=== PATIENT | male | born 1970 | race Caucasian/White ===

== ENCOUNTER 2021-04-22 16:48 | Inpatient (IN) | payer MEDICAID, SELFPAY ==
--- NOTE | ~2021-04-22 | XR_ITS ---
EXAMINATION: XR CHEST CLINICAL INFORMATION: History of fall. EtOH use. COMPARISON: None TECHNIQUE: 2 views of the chest were obtained. FINDINGS: Mild hyperinflated clear lung field is seen bilaterally. Cardiac mediastinal silhouette is within normal limit. No evidence of any pleural effusion or pneumothorax. The visualized upper abdomen is unremarkable. XR/XR chest 2V IMPRESSION: Mild hyperinflated lung field, may represent changes secondary to deep inspiration versus underlying COPD/emphysema. No superimposed acute cardiopulmonary disease.
--- NOTE | ~2021-04-22 | CT_ITS ---
EXAMINATION: CT HEAD WITHOUT CONTRAST CLINICAL INFORMATION: Status post fall. EtOH use. COMPARISON: None TECHNIQUE: Contiguous axial imaging was performed from the skull base to vertex without intravenous administration of contrast. This CT examination was performed using dose optimization techniques as appropriate, variously including the following: *Automated exposure control *Adjustment of mA and/or kV according to patient size (this includes techniques or standardized protocols for targeted exams where dose is matched to indication/reason for exam; i.e. extremities or head) *Use of iterative reconstruction technique DLP: 641.0 mGy-cm FINDINGS: There is no evidence of acute intracranial hemorrhage or territorial infarction. No abnormal mass effect or midline shift is seen. Ashley to white matter differentiation is well preserved. No extra-axial fluid collections are identified. The ventricles are normal in size. There is no abnormal attenuation within the brain parenchyma. The osseous structures and soft tissues are normal. The mastoid air cells and visualized portions of the paranasal sinuses are well aerated. CT/CT head/brain wo con IMPRESSION: No acute intracranial pathology.
[2021-04-22 17:52] VITALS: BP 134/83; PULSE 124; RESP 16; TEMP 36.9; O2SAT 100; BMI 22.0
[2021-04-22 18:49] LABS: COVID-19 Test Negative (Negative)
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
--- NOTE | 2021-04-22 19:05 | ECG_ITS ---
Test Reason : PSYCH Blood Pressure : / mmHG Vent. Rate : 094 BPM Atrial Rate : 094 BPM P-R Int : 106 ms QRS Dur : 080 ms QT Int : 400 ms P-R-T Axes : 071 052 090 degrees QTc Int : 500 ms Sinus rhythm with short MN with occasional Premature ventricular complexes Moderate voltage criteria for LVH, may be normal variant T-wave inversion in Lateral leads Prolonged QT Abnormal ECG No previous ECGs available Referred By: Mona Tomas Electronically Signed By:MANDO GASTON
[2021-04-22 19:36] LABS: MANUAL DIFF FLAG NO
[2021-04-22 19:39] LABS: Basophils Percent Auto 0.2 % (0-2); Eosinophils Percent Auto 0.2 % (0-4)
[2021-04-22 19:43] LABS: Hematocrit 35.2 % (42-52); Hemoglobin 12.9 g/dl (14.0-18.0); Imm Gran Abs Auto 0.05 X10*3/uL (0.00-0.03); Imm Gran Pct Auto 0.4 % (0.0-0.4); Lymphocytes Absolute Auto 0.9 X10*3/uL (1.2-4.9); Lymphocytes Percent Auto 7.7 % (20-40); Mean Corpuscular HGB Conc 36.6 g/dl (31.0-36.0); Mean Corpuscular Hemoglobin 40.7 pg (27.0-33.0); Mean Platelet Volume 10.1 fL (9.4-12.4); Monocytes Absolute Auto 1.1 X10*3/uL (0.1-1.2); Monocytes Percent Auto 9.1 % (2-11); Neutrophils Absolute Auto 9.5 X10*3/uL (2.0-8.3); Neutrophils Percent Auto 82.4 % (45-73); Platelet Count 140 X10*3/uL (160-400); Red Blood Count 3.17 X10*6/uL (4.60-5.80); White Blood Count 11.5 X10*3/uL (4.8-10.8)
[2021-04-22 19:52] LABS: Appearance Urine CLEAR; Color Urine DK YELLOW; Glucose Urine UA NEG (NEG); Leukocyte Esterase Urine NEG (NEG); Nitrite Urine NEG (NEG); PH 6.5 (5.0-8.0); Specific Gravity - Urine 1.025 (1.005-1.025); UACC Culture Trigger NO; Urine Blood 1+ (NEG); Urine Ketones 15 MG/DL (NEG); Urine Protein 2+ MG/DL (NEG-TRACE)
[2021-04-22 19:53] LABS: Ethanol < 10 mg/dL
[2021-04-22 19:59] LABS: Alanine Aminotransferase 21 U/L (0-40); Alkaline Phosphatase 78 U/L (39-117); Aspartate Amino Transferase 57 U/L (5-37); Blood Urea Nitrogen 23 mg/dL (9-16); Calcium 9.5 mg/dL (8.4-10.2); Creatinine Clr Calc Pharmacy 64.9; Estimated Glomerular Filt Rate 60; Glucose Random 81 mg/dL (60-115); Magnesium 1.5 mg/dL (1.6-2.6); Total Protein 8.4 g/dL (6.5-8.0)
[2021-04-22 20:01] LABS: RBC Urine 0-2 /HPF (0); WBC Urine 0 /HPF (0-4)
[2021-04-22 20:02] LABS: Bacteria Urine TRACE /LPF; Squamous Epithelial Cell Urine TRACE /LPF
[2021-04-22 20:09] LABS: Amphetamine Screen Urine Not Detected (Not Detect); Barbiturates, Urine Not Detected (Not Detect); Benzodiazepines Screen Urine Not Detected (Not Detect); Cannabinoid Screen Urine POSITIVE (Not Detect); Cocaine Screen Urine POSITIVE (Not Detect); Fentanyl, urine Not Detected (Not Detect); Opiate Screen Urine Not Detected (Not Detect); Phencyclidine Screen Urine Not Detected (Not Detect)
[2021-04-22] MEDS: Lactated Ringers 1,000 ML 999 ML IV (20:10)
[2021-04-22 20:11] LABS: Anion Gap 25 (12-20); Carbon Dioxide 23 mmol/L (22-29); Chloride 86 mmol/L (96-108); Potassium 4.6 mmol/L (3.3-5.1); Sodium 129 mmol/L (135-145)
[2021-04-22] MEDS: PHENobarbitaL sodium 130 MG/ML VIAL 316 MG IM (20:13)
--- NOTE | 2021-04-22 20:17 | PHA.MEDREC ---
Pharmacy Consult ? Medication Reconciliation Pharmacy has completed the medication reconciliation. Spoke to patient's sister Madisyn. Thanks Rahat Rodriguez Pharm D
[2021-04-22 20:19] VITALS: BP 127/85; PULSE 89; RESP 16; TEMP 36.8; O2SAT 98
[2021-04-22 21:02] LABS: Sodium Urine Random < 20.0 mmol/L
[2021-04-22 21:03] LABS: Osmolality, Serum 282 mosm/kg (281-305)
[2021-04-22 21:12] LABS: Osmolality Urine 654 mosm/kg (373-1093)
--- NOTE | 2021-04-22 21:31 | PC.NURSE ---
Hospitalist at bedside for primary eval.
--- NOTE | 2021-04-22 21:54 | PC.NURSE ---
PT's sister called for update. Sister (Madisyn) informed this script writer that PT has been exhibiting very peculiar behavior lately. Sister is concerned that PT is not withdrawing from alcohol because she did not witness any cessation of alcoholism recently. She also explained that the PT has exhibited altered behavior before in the past so she is concerned about underlying psychiatric issues. PT has a deep and ongoing fear of health care providers, often refusing treatment and medication options.
[2021-04-22 22:27] VITALS: BP 128/75; PULSE 86; RESP 16; O2SAT 98
[2021-04-22] MEDS: PHENobarbitaL sodium 130 MG/ML VIAL 236 MG IM (22:29)
[2021-04-22] MEDS: Enoxaparin Sodium 40 MG/0.4 ML SYRINGE SUBCUT (22:48)
[2021-04-22] MEDS: 0.9 % Sodium Chloride 1,000 ML 100 ML IVCONT (22:50)
[2021-04-22 23:27] LABS: Ammonia 48 umol/L (13-55)
[2021-04-23 01:36] VITALS: BP 110/64; PULSE 95; RESP 16; TEMP 37.3; O2SAT 99
[2021-04-23] MEDS: PHENobarbitaL sodium 130 MG/ML VIAL 236 MG IM (01:43)
--- NOTE | 2021-04-23 01:51 | PC.NURSE ---
PT was incontinent of stool. PT cleaned and changed in room. CIWA score remains unchanged. VSS. PT resting in bed, awaiting room assignment.
--- NOTE | 2021-04-23 06:29 | P.HPHOSP_ITS ---
History of Present Illness Date of Service: 04/22/21 Chief Complaint: Hallucinations This is a 50-year-old male with a past medical history of alcohol abuse, presents to the hospital with complaints of hallucinations reported by his sister who lives with him. When I saw the patient, his initial statement to me was to do with the visual hallucination he was seeing, but I was able to redirect him, he was able to give me accurate information with appropriate answers to my questions. He is not sure why he was sent to the hospital but he knows that his sister sent him. He denies any chest pain, no shortness of breath, no headache or change in vision, no abdominal pain, no nausea or vomiting, no diarrhea constipation, no urinary symptoms and no lower extremity edema. Patient reports that he drinks about 5-6 rum and Coke daily. He lives in his sister's basement and when asked him about his visual hallucinations he reports that he does see some patterns and colors but does not have any auditory hallucinations. He reports that his last drink was this a.m. a dental had any history of withdrawal seizures. He denies any chest pain, no shortness of breath no cough, the numbness tingling or weakness. All other review of system negative except as mentioned no significant abnormal vitals with a heart rate of 124 cocaine and marijuana. Labs are significant for WBC count of 11.5, hemoglobin of 12.9, which she sodium of 129, BUN of 23, creatinine-1.28, he magnesium of 1.5, total bili of 2.10, UA negative. Patient has been tested for syphilis-reusults pending, COVID-19 negative. Patient was started on a phenobarb protocol and will be admitted for further management and evaluation Review of Systems Review of Systems: Yes all other systems are reviewed and are negative [facility] Medical History Alcohol abuse Pertinent family history: Denies any family history or pertinent family history Surgical History (Updated 04/23/21 @ 06:42 by Jeaneth Hooks MD) No significant past surgical history Social History Advance Directives: No Advance Directives Information Provided: Yes Meds Allergies Allergy/AdvReac Type Severity Reaction Status Date / Time No Known Allergies Allergy Unverified 04/22/21 18:34 Active Medications: Current Medications Acetaminophen (Acetaminophen 325 Mg Tablet) 650 mg PO Q6H PRN PRN Reason: Pain, Mild (Pain Scale 1-3) Docusate Sodium (Docusate Sodium 100 Mg Capsule) 100 mg PO DAILY PRN PRN Reason: Constipation Enoxaparin Sodium (Enoxaparin Sodium 40 Mg/0.4 Ml Syringe) 40 mg SUBCUT Q24H [facility] Last Admin: 04/22/21 22:48 Dose: 40 mg Documented by: Folic Acid (Folic Acid 1 Mg Tablet) 1 mg PO DAILY [facility] Sodium Chloride (Ns) 1,000 mls @ 100 mls/hr IVCONT .Q10H [facility] Last Admin: 04/22/21 22:50 Dose: 100 mls/hr Documented by: Medication (No Benzodiazepines) 1 each MISCELLANE DAILY [facility] Ondansetron HCl (Ondansetron Hcl 4 Mg/2 Ml Vial) 4 mg IVPUSH Q8H PRN PRN Reason: Nausea and Vomiting Pharmacy Consult (Consult Rx Perform Med Rec) 1 each MISCELLANE ONCE PRN PRN Reason: Consult order Phenobarbital (Phenobarbital 15 Mg Tablet) 45 mg PO BID [facility]; Protocol Stop: 04/24/21 21:01 Phenobarbital (Phenobarbital 30 Mg Tablet) 30 mg PO BID [facility]; Protocol Stop: 04/26/21 21:01 Phenobarbital (Phenobarbital 30 Mg Tablet) 30 mg PO DAILY [facility]; Protocol Stop: 04/28/21 09:01 Sodium Chloride (0.9 % Sodium Chloride Flush 3 Ml Syringe) 3 ml IVFLUSH QSHIFT [facility] Last Admin: 04/23/21 00:31 Dose: Not Given Documented by: Thiamine HCl (Thiamine Hcl 100 Mg Tablet) 100 mg PO DAILY [facility] Home Medications Medication Instructions Recorded Confirmed Last Taken Type No Known Home Meds 04/22/21 04/22/21 Unknown History Physical Exam Vital Signs and Narrative: Vital Signs: Last Vital Signs Temp 99.1 F 04/23/21 01:36 Pulse 95 04/23/21 01:36 Resp 16 04/23/21 01:36 BP 110/64 04/23/21 01:36 Pulse Ox 99 04/23/21 01:36 Body Mass Index 22.0 Const: General: cooperative and no acute distress Orientation/consciousness: patient oriented x3 Eyes: General: appearance normal, both eyes and all related structures Pupils: Equal, round and reactive pupils present Resp: Effort & Inspection: normal respiratory effort Auscultation: clear to auscultation bilaterally Cardio: Rate: regular rate Rhythm: regular rhythm GI: Palpation (GI): Soft to palpation Auscultation: normal bowel sounds Skin: General skin exam: no rashes or lesions noted Neuro: Other: No neurological deficits General: patient oriented x3 Cranial nerves: Yes Equal, round and reactive pupils present Extrem: General: Yes normal to inspection and Yes no pedal edema Psych: Other: Visual hallucinations Results Labs CBC and Chem 7: 04/22/21 19:31 04/22/21 19:31 Labs: Laboratory Results - last 24 hr 04/22/21 04/22/21 04/22/21 18:28 19:31 19:31 MCV MCH MCHC RDW Plt Count MPV Immature Gran % (Auto) Neut % (Auto) Lymph % (Auto) [place] % (Auto) Eos % (Auto) Baso % (Auto) Lymph # (Auto) [place] # (Auto) Eos # (Auto) Baso # (Auto) Abs Immat Gran (auto) Absolute Neuts (auto) Absolute Nucleated RBC Nucleated RBC % (auto) Anion Gap 25 H Estim Creat Clear Calc 64.9 Estimated GFR 60 Random Glucose 81 Osmolality Calcium 9.5 Magnesium 1.5 L Total Bilirubin 2.0 H Direct Bilirubin 1.0 H AST 57 H ALT 21 Alkaline Phosphatase 78 Ammonia Total Protein 8.4 H Albumin 4.0 Urine Color Urine Appearance Urine pH Ur Specific [place] Urine Protein Urine Glucose (UA) Urine Ketones Urine Blood Urine Nitrite Ur Leukocyte Esterase Urine RBC Urine WBC Ur Squamous Epith Cells Urine Bacteria Urine Osmolality Ur Random Sodium Urine Opiates Screen Urine Fentanyl Screen Ur Barbiturates Screen Ur Phencyclidine Scrn Ur Amphetamines Screen U Benzodiazepines Scrn Urine Cocaine Screen U Marijuana (THC) Screen Ethyl Alcohol < 10 COVID-19 ([facility]AL) Negative COVID-19 Clin Com See Note 04/22/21 04/22/21 04/22/21 19:31 19:31 19:31 MCV 111.0 H MCH 40.7 H MCHC 36.6 H RDW 13.0 Plt Count 140 L MPV 10.1 Immature Gran % (Auto) 0.4 Neut % (Auto) 82.4 H Lymph % (Auto) 7.7 L [place] % (Auto) 9.1 Eos % (Auto) 0.2 Baso % (Auto) 0.2 Lymph # (Auto) 0.9 L [place] # (Auto) 1.1 Eos # (Auto) 0.0 Baso # (Auto) 0.0 Abs Immat Gran (auto) 0.05 H Absolute Neuts (auto) 9.5 H Absolute Nucleated RBC 0.000 Nucleated RBC % (auto) 0.0 Anion Gap Estim Creat Clear Calc Estimated GFR Random Glucose Osmolality 282 Calcium Magnesium Total Bilirubin Direct Bilirubin AST ALT Alkaline Phosphatase Ammonia Total Protein Albumin Urine Color Urine Appearance Urine pH Ur Specific [place] Urine Protein Urine Glucose (UA) Urine Ketones Urine Blood Urine Nitrite Ur Leukocyte Esterase Urine RBC Urine WBC Ur Squamous Epith Cells Urine Bacteria Urine Osmolality Ur Random Sodium < 20.0 Urine Opiates Screen Urine Fentanyl Screen Ur Barbiturates Screen Ur Phencyclidine Scrn Ur Amphetamines Screen U Benzodiazepines Scrn Urine Cocaine Screen U Marijuana (THC) Screen Ethyl Alcohol COVID-19 ([facility]) COVID-19 [employer] 04/22/21 04/22/21 04/22/21 19:31 19:44 19:44 MCV MCH MCHC RDW Plt Count MPV Immature Gran % (Auto) Neut % (Auto) Lymph % (Auto) [place] % (Auto) Eos % (Auto) Baso % (Auto) Lymph # (Auto) [place] # (Auto) Eos # (Auto) Baso # (Auto) Abs Immat Gran (auto) Absolute Neuts (auto) Absolute Nucleated RBC Nucleated RBC % (auto) Anion Gap Estim Creat Clear Calc Estimated GFR Random Glucose Osmolality Calcium Magnesium Total Bilirubin Direct Bilirubin AST ALT Alkaline Phosphatase Ammonia Total Protein Albumin Urine Color DK YELLOW Urine Appearance CLEAR Urine pH 6.5 Ur Specific [place] 1.025 Urine Protein 2+ H Urine Glucose (UA) NEG Urine Ketones 15 Urine Blood 1+ H Urine Nitrite NEG Ur Leukocyte Esterase NEG Urine RBC 0-2 Urine WBC 0 Ur Squamous Epith Cells TRACE Urine Bacteria TRACE Urine Osmolality 654 Ur Random Sodium Urine Opiates Screen Not Detected Urine Fentanyl Screen Not Detected Ur Barbiturates Screen Not Detected Ur Phencyclidine Scrn Not Detected Ur Amphetamines Screen Not Detected U Benzodiazepines Scrn Not Detected Urine Cocaine Screen POSITIVE H U Marijuana (THC) Screen POSITIVE H Ethyl Alcohol COVID-19 ([facility]) COVID-19 [facility] Com 04/22/21 22:50 MCV MCH MCHC RDW Plt Count MPV Immature Gran % (Auto) Neut % (Auto) Lymph % (Auto) [place] % (Auto) Eos % (Auto) Baso % (Auto) Lymph # (Auto) [place] # (Auto) Eos # (Auto) Baso # (Auto) Abs Immat Gran (auto) Absolute Neuts (auto) Absolute Nucleated RBC Nucleated RBC % (auto) Anion Gap Estim Creat Clear Calc Estimated GFR Random Glucose Osmolality Calcium Magnesium Total Bilirubin Direct Bilirubin AST ALT Alkaline Phosphatase Ammonia 48 Total Protein Albumin Urine Color Urine Appearance Urine pH Ur Specific [place] Urine Protein Urine Glucose (UA) Urine Ketones Urine Blood Urine Nitrite Ur Leukocyte Esterase Urine RBC Urine WBC Ur Squamous Epith Cells Urine Bacteria Urine Osmolality Ur Random Sodium Urine Opiates Screen Urine Fentanyl Screen Ur Barbiturates Screen Ur Phencyclidine Scrn Ur Amphetamines Screen U Benzodiazepines Scrn Urine Cocaine Screen U Marijuana (THC) Screen Ethyl Alcohol COVID-19 ([facility]) COVID-19 Clin Com Imaging Radiologist's Impressions: Impressions Chest X-Ray 04/22/21 18:34 IMPRESSION: Mild hyperinflated lung field, may represent changes secondary to deep inspiration versus underlying COPD/emphysema. No superimposed acute cardiopulmonary disease. Head CT 04/22/21 19:09 IMPRESSION: No acute intracranial pathology. Assessment and Plan (1) Alcohol withdrawal delirium: Status: Acute (2) Hyponatremia: Status: Acute (3) Leukocytosis: Status: Acute (4) Hypomagnesemia: Status: Acute (5) Visual hallucinations: Status: Acute 50-year-old male with past medical history of alcohol abuse presents to the hospital due to visual hallucinations most likely secondary to alcohol withdrawal # alcohol abuse with potential for withdrawal delirium/visual hallucinations - possibly secondary to alcohol withdrawal delirium - patient is having visual hallucinations otherwise his CIWA is pretty low - paste hallucinations may be secondary to alcohol withdrawal versus other psychiatric abnormality - no evidence of burn Achilles encephalopathy S patient has no significant oculomotor dysfunction or gait ataxia - will continue phenobarb, will add folic and thiamine acid supplement - behavioral health has also been consulted to evaluate for any other etiology of his hallucinations # hyponatremia - slightlly low, higher when corrected for glucose - most likely secondary to poor oral intake as well as alcohol abuse - patient denies drinking beer and mostly uses hard liquor as his preferred alcohol - patient given LR in the ED - will continue NS at 100 - follow BMP # hypomanesemia - repleted - follow mag level after repletion # leukocytosis - unclear etiology - no evidence of infection, including no UTI, chest findings of pneumonia or pulmonary abnormality, no evidence of soft tissue infection - at this time will hydrate patient and follow CBC DVT prophylaxis Lovenox Quality Stroke Does the patient have a stroke diagnosis?: No VTE Prior VTE?: No VTE Risk Level:: Medical - moderate - high VTE Device Contraindication: Treatment Not Indicated VTE Drug Contraindication: N/A - Med Ordered
[2021-04-23 06:40] VITALS: RESP 14
[2021-04-23] MEDS: 0.9 % Sodium Chloride Flush 3 ML SYRINGE IVFLUSH ×2 (07:18→17:55)
[2021-04-23] MEDS: Magnesium Sulfate/H2O 2 GM/50 ML PIGGYBACK IV (07:18)
[2021-04-23 07:22] VITALS: BP 117/72; PULSE 81; RESP 15; O2SAT 97
--- NOTE | 2021-04-23 07:25 | PC.NURSE ---
Pt sleeping. He is arousable with tactile stimulation. VSS
--- NOTE | 2021-04-23 08:25 | P.PNIM_ITS ---
Subjective Subjective Date of Service: 04/23/21 Interval History: Seen in f/u for alcohol withdrawal, electrolytes disturbances. Doing better today, Review of Systems no fever no seizure no halluication no tremores Physical Exam Vital Signs: Vital Signs: Last Vital Signs Temp 99.1 F 04/23/21 01:36 Pulse 81 04/23/21 07:22 Resp 15 04/23/21 07:22 BP 117/72 04/23/21 07:22 Pulse Ox 97 04/23/21 07:22 Body Mass Index 22.0 General: AO X 3, no acute distress Resp: CTA bilateral CVS: S1,S2,RRR GI: +BS, NT, no distention Skin: No rash Neuro: motor grossly intact, no tremors Psych: appropriate affect Objective Data Active Medications Acetaminophen (Acetaminophen 325 Mg Tablet) 650 mg PO Q6H PRN PRN Reason: Pain, Mild (Pain Scale 1-3) Docusate Sodium (Docusate Sodium 100 Mg Capsule) 100 mg PO DAILY PRN PRN Reason: Constipation Enoxaparin Sodium (Enoxaparin Sodium 40 Mg/0.4 Ml Syringe) 40 mg SUBCUT Q24H [facility] Last Admin: 04/22/21 22:48 Dose: 40 mg Documented by: NOMAN Folic Acid (Folic Acid 1 Mg Tablet) 1 mg PO DAILY [facility] Sodium Chloride (Ns) 1,000 mls @ 100 mls/hr IVCONT .Q10H [facility] Last Admin: 04/22/21 22:50 Dose: 100 mls/hr Documented by: NOMAN Magnesium Sulfate (Magnesium Sulfate/H2o) 2 gm in 50 mls @ 25 mls/hr IV ONCE ONE Stop: 04/23/21 08:42 Last Admin: 04/23/21 07:18 Dose: 25 mls/hr Documented by: MJ Medication (No Benzodiazepines) 1 each MISCELLANE DAILY [facility] Ondansetron HCl (Ondansetron Hcl 4 Mg/2 Ml Vial) 4 mg IVPUSH Q8H PRN PRN Reason: Nausea and Vomiting Pharmacy Consult (Consult Rx Perform Med Rec) 1 each MISCELLANE ONCE PRN PRN Reason: Consult order Phenobarbital (Phenobarbital 15 Mg Tablet) 45 mg PO BID [facility]; Protocol Stop: 04/24/21 21:01 Phenobarbital (Phenobarbital 30 Mg Tablet) 30 mg PO BID [facility]; Protocol Stop: 04/26/21 21:01 Phenobarbital (Phenobarbital 30 Mg Tablet) 30 mg PO DAILY [facility]; Protocol Stop: 04/28/21 09:01 Sodium Chloride (0.9 % Sodium Chloride Flush 3 Ml Syringe) 3 ml IVFLUSH QSHIFT [facility] Last Admin: 04/23/21 07:18 Dose: 3 ml Documented by: MJ Thiamine HCl (Thiamine Hcl 100 Mg Tablet) 100 mg PO DAILY [facility] Labs CBC & Chem 7: 04/22/21 19:31 04/22/21 19:31 Labs: Laboratory Results - last 24 hr 04/22/21 04/22/21 04/22/21 18:28 19:31 19:31 MCV MCH MCHC RDW Plt Count MPV Immature Gran % (Auto) Neut % (Auto) Lymph % (Auto) [place] % (Auto) Eos % (Auto) Baso % (Auto) Lymph # (Auto) [place] # (Auto) Eos # (Auto) Baso # (Auto) Abs Immat Gran (auto) Absolute Neuts (auto) Absolute Nucleated RBC Nucleated RBC % (auto) Anion Gap 25 H Estim Creat Clear Calc 64.9 Estimated GFR 60 Random Glucose 81 Osmolality Calcium 9.5 Magnesium 1.5 L Total Bilirubin 2.0 H Direct Bilirubin 1.0 H AST 57 H ALT 21 Alkaline Phosphatase 78 Ammonia Total Protein 8.4 H Albumin 4.0 Urine Color Urine Appearance Urine pH Ur Specific [place] Urine Protein Urine Glucose (UA) Urine Ketones Urine Blood Urine Nitrite Ur Leukocyte Esterase Urine RBC Urine WBC Ur Squamous Epith Cells Urine Bacteria Urine Osmolality Ur Random Sodium Urine Opiates Screen Urine Fentanyl Screen Ur Barbiturates Screen Ur Phencyclidine Scrn Ur Amphetamines Screen U Benzodiazepines Scrn Urine Cocaine Screen U Marijuana (THC) Screen Ethyl Alcohol < 10 COVID-19 ([facility]) Negative COVID-19 Clin Com See Note 04/22/21 04/22/21 04/22/21 19:31 19:31 19:31 MCV 111.0 H MCH 40.7 H MCHC 36.6 H RDW 13.0 Plt Count 140 L MPV 10.1 Immature Gran % (Auto) 0.4 Neut % (Auto) 82.4 H Lymph % (Auto) 7.7 L [place] % (Auto) 9.1 Eos % (Auto) 0.2 Baso % (Auto) 0.2 Lymph # (Auto) 0.9 L [place] # (Auto) 1.1 Eos # (Auto) 0.0 Baso # (Auto) 0.0 Abs Immat Gran (auto) 0.05 H Absolute Neuts (auto) 9.5 H Absolute Nucleated RBC 0.000 Nucleated RBC % (auto) 0.0 Anion Gap Estim Creat Clear Calc Estimated GFR Random Glucose Osmolality 282 Calcium Magnesium Total Bilirubin Direct Bilirubin AST ALT Alkaline Phosphatase Ammonia Total Protein Albumin Urine Color Urine Appearance Urine pH Ur Specific [place] Urine Protein Urine Glucose (UA) Urine Ketones Urine Blood Urine Nitrite Ur Leukocyte Esterase Urine RBC Urine WBC Ur Squamous Epith Cells Urine Bacteria Urine Osmolality Ur Random Sodium < 20.0 Urine Opiates Screen Urine Fentanyl Screen Ur Barbiturates Screen Ur Phencyclidine Scrn Ur Amphetamines Screen U Benzodiazepines Scrn Urine Cocaine Screen U Marijuana (THC) Screen Ethyl Alcohol COVID-19 ([facility]) COVID-19 NXT-ID 04/22/21 04/22/21 04/22/21 19:31 19:44 19:44 MCV MCH MCHC RDW Plt Count MPV Immature Gran % (Auto) Neut % (Auto) Lymph % (Auto) [place] % (Auto) Eos % (Auto) Baso % (Auto) Lymph # (Auto) [place] # (Auto) Eos # (Auto) Baso # (Auto) Abs Immat Gran (auto) Absolute Neuts (auto) Absolute Nucleated RBC Nucleated RBC % (auto) Anion Gap Estim Creat Clear Calc Estimated GFR Random Glucose Osmolality Calcium Magnesium Total Bilirubin Direct Bilirubin AST ALT Alkaline Phosphatase Ammonia Total Protein Albumin Urine Color DK YELLOW Urine Appearance CLEAR Urine pH 6.5 Ur Specific [place] 1.025 Urine Protein 2+ H Urine Glucose (UA) NEG Urine Ketones 15 Urine Blood 1+ H Urine Nitrite NEG Ur Leukocyte Esterase NEG Urine RBC 0-2 Urine WBC 0 Ur Squamous Epith Cells TRACE Urine Bacteria TRACE Urine Osmolality 654 Ur Random Sodium Urine Opiates Screen Not Detected Urine Fentanyl Screen Not Detected Ur Barbiturates Screen Not Detected Ur Phencyclidine Scrn Not Detected Ur Amphetamines Screen Not Detected U Benzodiazepines Scrn Not Detected Urine Cocaine Screen POSITIVE H U Marijuana (THC) Screen POSITIVE H Ethyl Alcohol COVID-19 ([facility]) COVID-19 [employer] Com 04/22/21 22:50 MCV MCH MCHC RDW Plt Count MPV Immature Gran % (Auto) Neut % (Auto) Lymph % (Auto) [place] % (Auto) Eos % (Auto) Baso % (Auto) Lymph # (Auto) [place] # (Auto) Eos # (Auto) Baso # (Auto) Abs Immat Gran (auto) Absolute Neuts (auto) Absolute Nucleated RBC Nucleated RBC % (auto) Anion Gap Estim Creat Clear Calc Estimated GFR Random Glucose Osmolality Calcium Magnesium Total Bilirubin Direct Bilirubin AST ALT Alkaline Phosphatase Ammonia 48 Total Protein Albumin Urine Color Urine Appearance Urine pH Ur Specific [place] Urine Protein Urine Glucose (UA) Urine Ketones Urine Blood Urine Nitrite Ur Leukocyte Esterase Urine RBC Urine WBC Ur Squamous Epith Cells Urine Bacteria Urine Osmolality Ur Random Sodium Urine Opiates Screen Urine Fentanyl Screen Ur Barbiturates Screen Ur Phencyclidine Scrn Ur Amphetamines Screen U Benzodiazepines Scrn Urine Cocaine Screen U Marijuana (THC) Screen Ethyl Alcohol COVID-19 ([facility]) COVID-19 Clin Com Assessment and Plan (1) Visual hallucinations: Status: Acute (2) Hypomagnesemia: Status: Acute (3) Alcohol withdrawal delirium: Status: Acute (4) Leukocytosis: Status: Acute (5) Hyponatremia: Status: Acute Assessment and Plan: 50-year-old male with past medical history of alcohol abuse presents to the hosp ital due to visual hallucinations most likely secondary to alcohol withdrawal # alcohol abuse with potential for withdrawal manifested by visual hallucinations--he fairly cooperative today -Treat with Phenobabrtinal, folic acid, thiamine, -if Psychotic features persist with treatment with alcohol withdrawal, should be evaluated by Psych # hyponatremia #Hypomagnesemia--likley from alcohol -Magnesium repleted -sodium is expected to correct with hydraation -repeat labs today # leukocytosis--mild, no si/sx of infection, likely reactive, monitor Quality Stroke Does the patient have a stroke diagnosis?: No VTE Prior VTE?: No VTE Risk Level:: Medical - moderate - high VTE Device Contraindication: Treatment Not Indicated VTE Drug Contraindication: N/A - Med Ordered
[2021-04-23] MEDS: 0.9 % Sodium Chloride 1,000 ML 100 ML IVCONT ×2 (08:47→17:55)
[2021-04-23 09:17] LABS: MANUAL DIFF FLAG NO
[2021-04-23 09:21] LABS: Basophils Percent Auto 0.5 % (0-2); Eosinophils Absolute Auto 0.1 X10*3/uL (0.0-0.4); Eosinophils Percent Auto 1.1 % (0-4); Hematocrit 31.5 % (42-52); Hemoglobin 11.2 g/dl (14.0-18.0); Imm Gran Abs Auto 0.03 X10*3/uL (0.00-0.03); Imm Gran Pct Auto 0.4 % (0.0-0.4); Lymphocytes Absolute Auto 0.9 X10*3/uL (1.2-4.9); Lymphocytes Percent Auto 12.8 % (20-40); Mean Corpuscular HGB Conc 35.6 g/dl (31.0-36.0); Monocytes Absolute Auto 0.7 X10*3/uL (0.1-1.2); Neutrophils Absolute Auto 5.6 X10*3/uL (2.0-8.3); Neutrophils Percent Auto 76.2 % (45-73); Platelet Count 118 X10*3/uL (160-400); Red Cell Distribution Width 13.1 % (11.0-16.0); White Blood Count 7.3 X10*3/uL (4.8-10.8)
[2021-04-23 09:23] LABS: Mean Corpuscular Volume 112.5 fL (80-98)
[2021-04-23 09:40] LABS: Blood Urea Nitrogen 12 mg/dL (9-16); Calcium 7.8 mg/dL (8.4-10.2); Carbon Dioxide 23 mmol/L (22-29); Chloride 94 mmol/L (96-108); Creatinine Clr Calc Pharmacy 102.6; Estimated Glomerular Filt Rate > 60; Glucose Random 74 mg/dL (60-115); Sodium 132 mmol/L (135-145)
[2021-04-23 09:50] LABS: Anion Gap 19 (12-20); Potassium 2.8 mmol/L (3.3-5.1)
[2021-04-23 09:53] LABS: Thyroid Stimulating Hormone 1.11 uIU/mL (0.32-4.0)
[2021-04-23] MEDS: Thiamine HCL 100 MG TABLET PO (11:10)
[2021-04-23] MEDS: PHENobarbitaL 15 MG TABLET 45 MG PO ×2 (11:10→21:13)
[2021-04-23] MEDS: Folic Acid 1 MG TABLET PO (11:10)
--- NOTE | 2021-04-23 11:11 | MHC.CM.PN ---
Attempted to meet with patient in regards to discharge planning. Patient is currently sleeping. Spoke with patient's sister, Madisyn, via telephone at [phone]. Patient is homeless but will sleep at his sister's house. [facility] is listed as patient's PCP. However, patient has never seen any of their providers because he refuses to go to the doctors. Patient refused Covid vaccines and has no HCP. Patient may benefit from Care Team referral when medically stable. Continue to monitor for d/c needs.
--- NOTE | 2021-04-23 11:14 | PC.NURSE ---
Pt now awake and alert. He took his meds willingly but is aggravated that he is here at this time.
[2021-04-23 12:00] VITALS: BP 109/69; PULSE 88
--- NOTE | 2021-04-23 13:07 | PC.NURSE ---
Pt ambulated to the bathroom with staff. Pt appears to be very lucid and is not having hallucinations at this time. He is very pleasant with staff. He is eating his lunch.
--- NOTE | 2021-04-23 16:40 | PC.NURSE ---
[facility] called. awaiting RN return call
[2021-04-23 17:44] VITALS: BP 120/74; PULSE 84; RESP 18; TEMP 36.6; O2SAT 98
[2021-04-23] MEDS: Potassium Chloride Packet 20 MEQ PACKET 40 MEQ PO (19:01)
[2021-04-23 19:47] VITALS: BP 110/70; PULSE 98; RESP 15; TEMP 37; O2SAT 100
[2021-04-23] MEDS: Enoxaparin Sodium 40 MG/0.4 ML SYRINGE SUBCUT (21:13)
[2021-04-24] VITALS: BP 112/63; PULSE 81; RESP 16; TEMP 36.8; O2SAT 97
[2021-04-24 04:00] VITALS: BP 134/68; PULSE 74; RESP 16; TEMP 36.8; O2SAT 98
[2021-04-24] MEDS: 0.9 % Sodium Chloride 1,000 ML 100 ML IVCONT ×2 (04:56→16:37)
[2021-04-24 07:44] VITALS: BP 119/70; PULSE 82; RESP 18; TEMP 37.1; O2SAT 98
[2021-04-24 09:33] LABS: Alanine Aminotransferase 15 U/L (0-40); Albumin Level 2.7 g/dL (3.5-5.0); Alkaline Phosphatase 64 U/L (39-117); Anion Gap 13 (12-20); Aspartate Amino Transferase 42 U/L (5-37); Blood Urea Nitrogen 6 mg/dL (9-16); Calcium 7.8 mg/dL (8.4-10.2); Carbon Dioxide 25 mmol/L (22-29); Chloride 98 mmol/L (96-108); Creatinine Clr Calc Pharmacy 115.4; Estimated Glomerular Filt Rate > 60; Glucose Random 128 mg/dL (60-115); Potassium 3.2 mmol/L (3.3-5.1); Sodium 133 mmol/L (135-145); Total Protein 5.8 g/dL (6.5-8.0)
[2021-04-24] MEDS: PHENobarbitaL 15 MG TABLET 45 MG PO ×2 (10:35→20:51)
[2021-04-24] MEDS: Folic Acid 1 MG TABLET PO (10:35)
[2021-04-24] MEDS: Thiamine HCL 100 MG TABLET PO (10:35)
[2021-04-24 12:00] VITALS: BP 132/72; PULSE 99; RESP 18; TEMP 37.9; O2SAT 99
[2021-04-24] MEDS: Potassium Chloride Packet 20 MEQ PACKET 40 MEQ PO ×2 (12:33→16:28)
--- NOTE | 2021-04-24 13:54 | PM.DS ---
DS: Providers Provider Date of Service: 04/24/21 Date of admission: 04/22/21 21:18 Date of discharge: 04/24/21 Primary care physician: [facility] Admitting clinician: Awais Michael Consults: 04/23/21 06:28 Consult to Care Team Routine Comment: pt w hx of alcohol abuse, presents w hallucination Reason for consultation: hallucinations Attending physician on discharge: Les Juarez DS: Diagnosis Discharge Diagnosis (1) Visual hallucinations: Start date: 04/24/21 Status: Acute (2) Hypomagnesemia: Start date: 04/24/21 Status: Acute (3) Alcohol withdrawal delirium: Start date: 04/24/21 Status: Acute (4) Leukocytosis: Start date: 04/24/21 Status: Acute (5) Hyponatremia: Start date: 04/24/21 Status: Acute DS: Summary Hospital Course Hospital Course: 50-year-old male with past medical history significant for alcohol abuse presents the hospital with complaints of of loosening a reid that were reported by sister whom he lives with. Initially he was redirectable and able to give information. Over the course of his hospitalization he became more confused despite phenobarbital. He continued on the alcohol protocol and by day 2 was cleared. Initially he was hypokalemic and hypomagnesemic but these were repleted. Currently he is stable potassium is repleted. He has been smoking to about possible rehab for alcohol abuse and states ?I known alcoholic but it does not bother me?. He will be discharge to home and will follow-up with PCP of his choosing Status at Discharge Functional status at discharge: independent ambulation Time Spent with Patient Time attestation: Total time spent providing and/or coordinating discharge services: Discharge coordination time: Greater than 30 minutes Quality: Stroke Does the patient have a stroke diagnosis?: No Physical Exam Vital Signs: Vital Signs: Last Vital Signs Temp 100.2 F 04/24/21 12:00 Pulse 99 04/24/21 12:00 Resp 18 04/24/21 12:00 BP 132/72 04/24/21 12:00 Pulse Ox 99 04/24/21 12:00 Body Mass Index 22.0 Const: General: no acute distress HENMT: Other: Oropharynx clear. Membranes moist Resp: Auscultation: clear to auscultation bilaterally, no rales, no rhonchi and no wheezes Cardio: Rate: regular rate Rhythm: regular rhythm Heart sounds: S1 normal heart sound present, S2 normal heart sound present and no murmurs GI: Other: Soft nontender nondistended with normoactive bowel sounds. There are no acute peritoneal signs Neuro: Other: Age-appropriate nonfocal Extrem: General: Yes normal to inspection DS: Data Data Completed and Pending Labs on day of discharge: Laboratory Results - last 24 hr 04/24/21 08:35 Sodium 133 L Potassium 3.2 L Chloride 98 Carbon Dioxide 25 Anion Gap 13 BUN 6 L Creatinine 0.72 Estim Creat Clear Calc 115.4 Estimated GFR > 60 Random Glucose 128 H D Calcium 7.8 L Total Bilirubin 1.0 AST 42 H ALT 15 Alkaline Phosphatase 64 Total Protein 5.8 L D Albumin 2.7 L D Discharge Plan Discharge Patient Disposition: Home, Self-Care Discharge Diagnosis: Acute alcohol withdrawal Referrals: [place] [Primary Care Provider] - 1 Week Discharge Medications: No Action No Known Home Meds RF: 0 Discharge Orders: Discharge Order (Routine); Ordered 04/24/21 Ordered By: Les Juarez Activity on Discharge: As tolerated Stand Alone Forms: Patient Portal Discharge page Care Plan Goals: no EToH Health Concerns: Alcohol Abuse Plan of Treatment: Offered SWAT..declines Assessment: Admitted for EToH withdrawl..stable on discharge
--- NOTE | 2021-04-24 14:36 | MHC.CM.PN ---
PER CM NOTES, PT IS HOMELESS HOWEVER WOULD BE STAYING WITH HIS SISTER UPON DC. ELEUTERIO MET WITH PT WHO CONFIRMED THIS AND ASKED CM TO CONTACT HIS SISTER TO SEE IF SHE WAS PICKING HIM UP AT DC CM CALLED PTS SISTER, MARIAH, [phone], WHO REPORTED THIS WAS NOT THE CASE. SHE REPORTS SHE HAS CHILDREN AND WORKS FT AND CANNOT HAVE HIM IN THE HOME IF HE CONTINUES DRINKING. SHE REPORTED CONCERNS THAT PT WAS HALLUCINATING AND MAY NEED A PSYCHIATRIC EVAL. SHE REPORTS WHILE IN THE ED, SHE WAS TOLD THE PT WOULD BE SEEN BY THE CARE TEAM. CM EXPLAINED THE ORDER WAS IN AND THE CARE TEAM WOULD BE SEEING HIM. SHE REQUESTED CM FIND OUT WHAT TIME SO THAT SHE COULD ENSURE THE PT KNOWS HE MUST PARTICIPATE IF SHE IS TO CONTINUE PROVIDING ANY TYPE OF ASSISTANCE. ELEUTERIO CONTACTED A MEMBER OF THE RECOVERY TEAM WHO EXPLAINED PT HAD REFUSED TO MEET EARLIER IN THE DAY, HOWEVER THEY AGREED TO RETURN WITHIN THE HOUR IF PT WOULD BE READY TO BE SEEN. CM INFORMED PTS SISTER THAT PT WOULD BE SEEN WITHIN THE HOUR AND SHE REPORTED SHE WOULD BE SEEING HIM SHORTLY SHE WAS NEARBY. CURRENTLY, DC PLAN IS TBD PENDING CARE TEAM CONSULT AND MEETING WITH PTS SISTER.
--- NOTE | 2021-04-24 14:57 | MHC.RECOVSUP ---
Recovery Support Note: Patient is a 50 year old Jordanian speaking male who presented to [facility] ED due to hallucinations. Patient was medically admitted for alcohol withdrawal. This advertising copy writer met with patient in - to discuss his alcohol use and recovery supports. Patient reports he plans to stop drinking out of necessity. Patient reports he will get kicked out if he keeps drinking. Patient reports he does not find his alcohol use to be problematic however states it will be getting cold soon and that he will maintain sobriety to keep his housing. Patient reports past periods of sobriety however did not elaborate. Patient reports I just stopped drinking, it wasn't a problem. Patient reports he has attended AA meetings in the past and did not find them helpful. Discussed cravings with patient and ways to cope with them. Patient is not interested in medications for alcohol use disorder. Patient is not interested in IOP or outpatient therapy. Patient reports he has friends and family he can lean on for support if needed. Provided patient with contact information for this advertising copy writer in the event that he is interested in services after discharge. Discussed case with patient's CM.
[2021-04-24 15:16] VITALS: BP 144/86; PULSE 102; RESP 17; TEMP 37.1; O2SAT 99
--- NOTE | 2021-04-24 16:00 | MHC.RECOVSUP ---
Recovery Support note: This writer producer met with patient and patient's sister (Madisyn) at CM request. Madisyn is now reporting that patient cannot return home with her and that he is effectively homeless. Patient is ready for discharge at this time. This writer producer discussed housing options including shelters, [facility] and substance use treatment programs. Patient declined interest in [facility] or shelters and reports he plans to get a hotel for the night. Madisyn voiced concern that patient will end up continuing to drink and that the hospital is not doing enough for him. This writer producer explained that substance use treatment is voluntary and that patient can follow up with [facility] facilities in the morning. Discussed [facility] and encouraged patient to go there tomorrow morning to get assistance getting connected with treatment. Patient accepted information on [facility] and [facility]. Madisyn expressed concern that this is a psychiatric problem as patient was hallucinating and destroying property at her home. Patient denies hallucinations at this time and does not appear to be responding to internal stimuli. Explained to Madisyn that the hallucinations were likely related to the withdrawal. Discussed Section 35 with Madisyn and offered resources on this however she declined. Patient has contact information for this writer producer and patient was encouraged to contact this writer producer if he needs assistance with transportation to a treatment facility.
--- NOTE | 2021-04-24 16:46 | PC.NURSE ---
P patient states he can not be discharged home,his sister will not accept him and will not pick him up he will need some type of placement I Dr. Juarez notified of the above E will monitor
[2021-04-24 20:00] VITALS: BP 144/72; PULSE 88; RESP 18; TEMP 37.1; O2SAT 99
[2021-04-24] MEDS: Enoxaparin Sodium 40 MG/0.4 ML SYRINGE SUBCUT (20:50)
[2021-04-25] VITALS: BP 131/79; PULSE 83; RESP 18; TEMP 37.5; O2SAT 100
[2021-04-25 04:00] VITALS: BP 141/81; PULSE 82; RESP 18; TEMP 36.7; O2SAT 99
[2021-04-25] MEDS: 0.9 % Sodium Chloride 1,000 ML 100 ML IVCONT (04:12)
[2021-04-25 07:35] VITALS: BP 129/71; PULSE 97; RESP 18; TEMP 37.1; O2SAT 99
[2021-04-25] MEDS: Folic Acid 1 MG TABLET PO (08:43)
[2021-04-25] MEDS: Thiamine HCL 100 MG TABLET PO (08:43)
[2021-04-25] MEDS: PHENobarbitaL 30 MG TABLET PO (08:43)
[2021-04-25 09:55] LABS: Folate 5.7 ng/mL (> or = 4.0); Vitamin B12 523 pg/mL (200-900)
--- NOTE | 2021-04-25 09:55 | MHC.CM.PN ---
PT CLEARED FOR DC YESTERDAY HOWEVER AT TIME OF DC PT AND CM WERE INFORMED PT COULD NO LONGER STAY WITH HIS SISTER AND WOULD BE HOMELESS. PT WAS SEEN BY RECOVERY CONCRETE ROD BUSTER AND PROVIDED MULTIPLE RESOURCES. SUPERVISOR SEAMING ALSO MET WITH PTS SISTER. DC PLAN WAS FOR PT TO TAKE AN UBER TO A LOCAL HOTEL. PER RN NOTES, WHEN PT WAS BEING DISCHARGED HE TOLD THE RN HE COULD NOT GO TO HIS SISTERS HOME AND SHE WOULD NOT BE PROVIDING TRANSPORT. NOTE THEN SAYS PT STAYING FOR PLACEMENT. CM MET WITH PT THIS MORNING TO DETERMINE WHAT TYPE OF PLACEMENT HE IS INTERESTED IN. PT STATES HE IS NOT INTERESTED IN ANY TYPE OF PLACEMENT AND WOULD LIKE TO LEAVE. PT REPORTS HE WAS TOLD HE COULD NOT LEAVE LAST NIGHT AND DID NOT REALIZE THAT HE HAD THE OPTION. CM DISCUSSED WHAT TYPES OF PLACEMENT HE MAY BE ELIGIBLE FOR HOWEVER PT CONTINUED TO DECLINE. PT AND CM DID DISCUSS THE RESOURCES PROVIDED BY THE SUPERVISOR SEAMING AND PT REPORTS HE WILL READ THE INFO FURTHER AND MAY FOLLOW UP ON SOME OF IT. PT REPORTS AA NEVER WORKED FOR HIM BUT HE MAY BE INTERESTED IN A RN CVICU. CM SPOKE TO HOSPITALIST WHO CONFIRMED PT IS MEDICALLY CLEAR TO DC. PT REPORTS HE WILL BE GOING TO HIS SISTERS HOME TO COLLECT HIS THINGS AND THEN WILL GO RENT A ROOM AT [facility]. CM OFFERED SHUTTLE SERVICES HOWEVER PT REPORTS HE WOULD PREFER TO WALK IT IS VERY CLOSE
[2021-04-25 10:12] LABS: Syphilis Screen Nonreactive (Nonreactive)
--- NOTE | 2021-04-25 10:25 | P.PNIM_ITS ---
Subjective Subjective Date of Service: 04/25/21 Interval History: 50-year-old male admitted for alcohol withdrawal scheduled for DC 04/24. Family unwilling to take back. Wishes to be discharged today states he will arrange his own lodging Review of Systems Denies chest pain Denies shortness of breath Denies nausea vomiting diarrhea Physical Exam Vital Signs: Vital Signs: Last Vital Signs Temp 98.7 F 04/25/21 07:35 Pulse 97 04/25/21 07:35 Resp 18 04/25/21 07:35 BP 129/71 04/25/21 07:35 Pulse Ox 99 04/25/21 07:35 Body Mass Index 22.0 Const: General: no acute distress Resp: Auscultation: clear to auscultation bilaterally, no rales, no rhonchi and no wheezes Cardio: Rate: regular rate Rhythm: regular rhythm Heart sounds: S1 normal heart sound present, S2 normal heart sound present and no murmurs GI: Other: Soft nontender nondistended with normoactive bowel sounds. No peritoneal signs Neuro: Other: Age-appropriate nonfocal Extrem: General: Yes normal to inspection Objective Data Active Medications Acetaminophen (Acetaminophen 325 Mg Tablet) 650 mg PO Q6H PRN PRN Reason: Pain, Mild (Pain Scale 1-3) Docusate Sodium (Docusate Sodium 100 Mg Capsule) 100 mg PO DAILY PRN PRN Reason: Constipation Enoxaparin Sodium (Enoxaparin Sodium 40 Mg/0.4 Ml Syringe) 40 mg SUBCUT Q24H [facility] Last Admin: 04/24/21 20:50 Dose: 40 mg Documented by: ONOFRE Folic Acid (Folic Acid 1 Mg Tablet) 1 mg PO DAILY [facility] Last Admin: 04/25/21 08:43 Dose: 1 mg Documented by: MARILYNN Sodium Chloride (Ns) 1,000 mls @ 100 mls/hr IVCONT .Q10H [facility] Last Admin: 04/25/21 04:12 Dose: 100 mls/hr Documented by: ODRISM Medication (No Benzodiazepines) 1 each MISCELLANE DAILY [facility] Ondansetron HCl (Ondansetron Hcl 4 Mg/2 Ml Vial) 4 mg IVPUSH Q8H PRN PRN Reason: Nausea and Vomiting Pharmacy Consult (Consult Rx Perform Med Rec) 1 each MISCELLANE ONCE PRN PRN Reason: Consult order Phenobarbital (Phenobarbital 30 Mg Tablet) 30 mg PO BID [facility]; Protocol Stop: 04/26/21 21:01 Last Admin: 04/25/21 08:43 Dose: 30 mg Documented by: MARILYNN Phenobarbital (Phenobarbital 30 Mg Tablet) 30 mg PO DAILY [facility]; Protocol Stop: 04/28/21 09:01 Sodium Chloride (0.9 % Sodium Chloride Flush 3 Ml Syringe) 3 ml IVFLUSH QSHIFT [facility] Last Admin: 04/25/21 08:44 Dose: Not Given Documented by: MARILYNN Non-Admin Reason: IV Running Thiamine HCl (Thiamine Hcl 100 Mg Tablet) 100 mg PO DAILY [facility] Last Admin: 04/25/21 08:43 Dose: 100 mg Documented by: MARILYNN Labs CBC & Chem 7: 04/23/21 09:12 04/24/21 08:35 Labs: Laboratory Results - last 24 hr 04/22/21 04/22/21 04/23/21 19:31 19:31 09:12 Smear Path Review SEE NOTE Vitamin B12 523 Folate 5.7 T.pallidum Ab (EIA) Nonreactive Assessment and Plan (1) Alcohol withdrawal delirium: Status: Acute Assessment and Plan: [facility]. Repeatedly declined outpatient services Quality Stroke Does the patient have a stroke diagnosis?: No VTE Prior VTE?: No VTE Risk Level:: Medical - moderate - high VTE Device Contraindication: Treatment Not Indicated VTE Drug Contraindication: N/A - Med Ordered
== END 2021-04-25 10:41 | disposition home or self-care (01) | DRG 426 ==
LOC: HO.ED 20:42 → HO.EDOVER 21:26 → HO.S3 04-23 16:07
PROVIDERS: Internal Medicine; Physician Assistant; Admitting Provider Internal Medicine; Emergency Provider Emergency Medicine Emergency Medical Services; Visit Provider Hospitalist
DX: E87.1 Hypo-osmolality and hyponatremia (principal); F10.131 Alcohol abuse with withdrawal delirium; E83.42 Hypomagnesemia; Z20.822 Contact with and (suspected) exposure to COVID-19; D72.829 Elevated white blood cell count, unspecified; G89.29 Other chronic pain; F17.210 Nicotine dependence, cigarettes, uncomplicated; Z71.6 Tobacco abuse counseling
CPT/HCPCS: 36415; 70450; 71046; 80048; 80053; 80076; 80307; 81001; 82077; 82140; 82607; 82746; 83735; 83930; 83935; 84300; 84443; 85025; 86780; 87635; 93005; 99285; J1650; J2560; J3475

== ENCOUNTER 2022-02-26 10:59 | Inpatient (IN) | payer MEDICAID, SELFPAY ==
[2022-02-26] VITALS (7 sets, daily range): BP systolic 102–139; BP diastolic 64–90; PULSE 56–120; RESP 16–19; TEMP 36.2–37.1; O2SAT 96–100; BMI 22.1; BMI 20.5
--- NOTE | ~2022-02-26 | CT_ITS ---
EXAMINATION: HEAD CT WITHOUT CONTRAST CERVICAL SPINE CT WITHOUT CONTRAST CLINICAL INFORMATION: confusion, slurred speech, altered, found down COMPARISON: 04/22/2021 TECHNIQUE: Contiguous axial imaging of the head was performed without the administration of IV contrast. Axial multidetector volumetric images were also performed through the cervical spine without intravenous contrast. Multiplanar reconstructed images in coronal and sagittal orientations were submitted. This CT examination was performed using dose optimization techniques as appropriate, variously including the following: *Automated exposure control *Adjustment of mA and/or kV according to patient size (this includes techniques or standardized protocols for targeted exams where dose is matched to indication/reason for exam; i.e. extremities or head) *Use of iterative reconstruction technique DOSE: 641 mGy-cm FINDINGS: HEAD: There is no evidence of acute intracranial hemorrhage or territorial infarction. No abnormal mass-effect or midline shift. No extra-axial fluid collections. Ashley to white matter differentiation is well preserved. Moderate enlargement of the ventricles, sulci, and extra-axial CSF spaces is indicative of parenchymal volume loss. There is no abnormal attenuation within the brain parenchyma. The soft tissues and osseous structures are normal. The sinuses and mastoid air cells are clear. Leftward deviation of the nasal septum. Cerumen is present in the left external auditory canal. CERVICAL SPINE: Vertebral body heights are normal. No fractures of the vertebral bodies or posterior elements. Vertebral alignment is normal. No subluxation. The craniocervical and atlantoaxial articulations are normal. Intervertebral disc heights are normal. No significant degenerative disc disease. Facet joints are normal. Central canal and neural foramina appear patent without appreciable stenoses. No significant paravertebral soft tissue swelling. Cervical soft tissues are unremarkable. Imaged portions of the lung apices are clear aside from mild paraseptal emphysematous changes. CT/CT cervical spine wo con IMPRESSION: 1. No acute intracranial pathology. 2. No acute fracture or malalignment in the cervical spine.
--- NOTE | 2022-02-26 11:01 | ED.ALCOHOL ---
HPI - Alcohol General Chief Complaint: Altered Mental Status Stated Complaint: ETOH INTOXICATION PER EMS Time Seen by Provider: 02/26/22 11:01 Source: patient and EMS Mode of arrival: EMS Limitations: altered mental status History of Present Illness HPI narrative: 51-year-old male with longstanding alcohol abuse since the age of 19, history of alcohol withdrawal in the past presents to the ER by EMS after he was found unconscious in the parking lot of [facility]. Bystanders called 911 and PD was on scene. Unknown if narcan was administered. Patient was found to be disheveled, dirty, confused, incoherent and smelled of alcohol. Patient reports he last drank alcohol last night. He cannot answer simple questions. History is extremely limited. MD complaint: alcohol intoxication Last drink: Unknown Chronic alcohol use: Yes Previous visits for alcohol intoxication: Yes Treatments prior to arrival: none Related Data Home Medications Medication Instructions Recorded Confirmed No Known Home Meds 04/22/21 02/26/22 Allergies Allergy/AdvReac Type Severity Reaction Status Date / Time No Known Allergies Allergy Unverified 04/22/21 18:34 Review of Systems Review of Systems: Yes Unobtainable due to mental condition and Unobtainable due to mental status PMFSH Past Medical History Medical History Alcohol abuse Alcohol withdrawal delirium Hypomagnesemia Hyponatremia Leukocytosis Visual hallucinations Surgical History No significant past surgical history Social History Social History Household Members: Other Household Members Other:: sister Housing: House Do you presently have visiting nurse or other home services: No Alcohol intake: current Patient Tobacco Use Status: Current everyday Tobacco user Tobacco use type: Pipe Years Smoked: 15 Second Hand Smoke Exposure: No Use of substances other than those prescribed or required for medical reasons: Unknown Substance Use Type: Marijuana Advance Directives: No Advance Directives Information Provided: Yes service: No Current occupational status: disabled Physical Exam ED Vital Signs: Vital Signs - 24 hr 02/26/22 11:34 Pulse Rate 120 H Respiratory Rate 16 Blood Pressure 139/74 Pulse Oximetry 96 Oxygen Delivery Method Room Air BMI result Body Mass Index 22.1 Appearance:disheveled, thin, frail, unkempt male sitting in the stretcher, intermittent wakefulness Eyes: Pupils equal, round and reactive to light. ENT: Pharynx with poor dentition, dry mucus membranes Neck: Normal inspection. Neck supple. No cervical spinal tenderness CVS: Tachycardic, regular rhythm. Pulses normal. Respiratory: No respiratory distress. Breath sounds normal. Abdomen: Soft and nontender. +BS x4 Skin: Skin warm and dry. Skin color is hyperpigmented. Normal skin turgor. No rashes. Extremities: thin, frail, muscle atrophy throughout. fingernails thick, yellow with dirt encrusted within. Neuro: sitting up on the stretcher, intermittently closing eyes, oriented to year only. Intermittently incoherent speech. Responds to painful stimuli. Course Course Course Narrative: 51-year-old male with history of alcohol abuse and withdrawal who presents to the ER for evaluation after he was found down in the [facility] parking lot today. on arrival to the ED patient is confused, disoriented, not a reliable historian, he appears cachectic and frail. He is coherent enough to tell us the year and that his last alcoholic beverage was yesterday. Concern for possible alcohol withdrawal. Will also need to rule out ICH given his altered mental status. Will assess for metabolic derangements as well. IV fluids started as patient appears clinically dehydrated. dried feces were noted all inside of his clothing. Anticipate admission Reevaluation(s) Reevaluation #1: CT head showing no acute intracranial pathology. Anion gap of 27 with a normal bicarb and pH of 7.51. Most likely multifactorial with volume contraction and starvation ketosis, lactic acid 2.4. getting IV fluids now, will repeat lactic acid. He has elevated transaminases in the 200 range with a bilirubin of 2.0, which he has had in the past. most likely alcoholic hepatitis. Coags are pending. He has no right upper quadrant tenderness on examination. Hold off on imaging for now. Reevaluation #2: Difficult to get a accurate CIWA score but nursing got a 13 based on his current status. Given his alcohol level is less than 10 and his extensive drinking history, will plan to start phenobarb protocol with p.r.n. oral Ativan. will also plan to start high-dose thiamine in the event that this is possible Wernicke's encephalopathy. IV folic acid also ordered. Hospitalist has been [place] texted for admission to the hospital for further management. MDM - Alcohol Medical Records Attestation: I reviewed the patient's medical records. Lab Data Attestation: I reviewed the patient's lab results. Result diagrams: 02/26/22 12:03 02/26/22 12:03 Labs: Lab Results 02/26/22 02/26/22 02/26/22 Range/Units 12:03 12:03 12:03 WBC 8.9 (4.8-10.8) X10*3/uL RBC 2.61 L (4.60-5.80) X10*6/uL Hgb 10.3 L (14.0-18.0) g/dl Hct 29.0 L (42.0-52.0) % MCV 111.1 H (80.0-98.0) fL MCH 39.5 H (27.0-33.0) pg MCHC 35.5 (31.0-36.0) g/dl RDW 15.2 (11.0-16.0) % Plt Count 234 (160-400) X10*3/uL MPV 10.0 (9.4-12.4) fL Immature Gran % (Auto) 0.7 H (0.0-0.4) % Neut % (Auto) 73.2 H (45-73) % Lymph % (Auto) 16.5 L (20-40) % [place] % (Auto) 8.7 (2-11) % Eos % (Auto) 0.6 (0-4) % Baso % (Auto) 0.3 (0-2) % Lymph # (Auto) 1.5 (1.2-4.9) X10*3/uL [place] # (Auto) 0.8 (0.1-1.2) X10*3/uL Eos # (Auto) 0.1 (0.0-0.4) X10*3/uL Baso # (Auto) 0.0 (0.0-0.2) X10*3/uL Abs Immat Gran (auto) 0.06 H (0.00-0.03) X10*3/uL Absolute Neuts (auto) 6.5 (2.0-8.3) x10*3/uL Absolute Nucleated RBC 0.060 H (0.0-0.012) X10*3/uL Nucleated RBC % (auto) 0.7 H (0.0-0.2) /100WBC PT (10.0-13.1) SEC INR (0.9-1.1) APTT (26.0-36.4) SEC VBG pH (7.32-7.43) VBG pCO2 mmHg VBG pO2 mmHg VBG HCO3 (22-26) mmol/L VBG O2 Saturation % VBG Base Excess mmol/L Sodium 143 (135-145) mmol/L Potassium 3.3 (3.3-5.1) mmol/L Chloride 96 (96-108) mmol/L Carbon Dioxide 23 (22-29) mmol/L Anion Gap 27 H (12-20) BUN 34 H (9-16) mg/dL Creatinine 0.90 (0.5-1.4) mg/dL Estim Creat Clear Calc 75.8 Estimated GFR > 60 Random Glucose 98 (60-115) mg/dL Lactic Acid (0.5-2.0) mmol/L Lactic Acid F/U @ 2Hr (0.5-2.0) mmol/L Calcium 8.7 D (8.4-10.2) mg/dL Phosphorus 2.4 L (2.7-4.5) mg/dL Magnesium 1.8 (1.6-2.6) mg/dL Total Bilirubin 2.0 H (0.0-1.0) mg/dL Direct Bilirubin 1.3 H (0.0-0.5) mg/dL AST 252 H (5-37) U/L ALT 208 H (0-40) U/L Alkaline Phosphatase 102 D (39-117) U/L Ammonia (13-55) umol/L Total Creatine Kinase 16 L (38-174) U/L Troponin I High Sens < 3.5 (<3.5-35.0) ng/L Total Protein 7.5 D (6.5-8.0) g/dL Albumin 3.5 D (3.5-5.0) g/dL TSH 1.80 (0.32-4.0) uIU/mL Ethyl Alcohol < 10 mg/dL 02/26/22 02/26/2222 Range/Units 12:03 12:03 12:45 WBC (4.8-10.8) X10*3/uL RBC (4.60-5.80) X10*6/uL Hgb (14.0-18.0) g/dl Hct (42.0-52.0) % MCV (80.0-98.0) fL MCH (27.0-33.0) pg MCHC (31.0-36.0) g/dl RDW (11.0-16.0) % Plt Count (160-400) X10*3/uL MPV (9.4-12.4) fL Immature Gran % (Auto) (0.0-0.4) % Neut % (Auto) (45-73) % Lymph % (Auto) (20-40) % [place] % (Auto) (2-11) % Eos % (Auto) (0-4) % Baso % (Auto) (0-2) % Lymph # (Auto) (1.2-4.9) X10*3/uL [place] # (Auto) (0.1-1.2) X10*3/uL Eos # (Auto) (0.0-0.4) X10*3/uL Baso # (Auto) (0.0-0.2) X10*3/uL Abs Immat Gran (auto) (0.00-0.03) X10*3/uL Absolute Neuts (auto) (2.0-8.3) x10*3/uL Absolute Nucleated RBC (0.0-0.012) X10*3/uL Nucleated RBC % (auto) (0.0-0.2) /100WBC PT (10.0-13.1) SEC INR (0.9-1.1) APTT (26.0-36.4) SEC VBG pH 7.51 H (7.32-7.43) VBG pCO2 32 mmHg VBG pO2 58 mmHg VBG HCO3 26 (22-26) mmol/L VBG O2 Saturation 85.0 % VBG Base Excess 3.9 mmol/L Sodium (135-145) mmol/L Potassium (3.3-5.1) mmol/L Chloride (96-108) mmol/L Carbon Dioxide (22-29) mmol/L Anion Gap (12-20) BUN (9-16) mg/dL Creatinine (0.5-1.4) mg/dL Estim Creat Clear Calc Estimated GFR Random Glucose (60-115) mg/dL Lactic Acid 2.4 H* (0.5-2.0) mmol/L Lactic Acid F/U @ 2Hr (0.5-2.0) mmol/L Calcium (8.4-10.2) mg/dL Phosphorus (2.7-4.5) mg/dL Magnesium (1.6-2.6) mg/dL Total Bilirubin (0.0-1.0) mg/dL Direct Bilirubin (0.0-0.5) mg/dL AST (5-37) U/L ALT (0-40) U/L Alkaline Phosphatase (39-117) U/L Ammonia 46 (13-55) umol/L Total Creatine Kinase (38-174) U/L Troponin I High Sens (<3.5-35.0) ng/L Total Protein (6.5-8.0) g/dL Albumin (3.5-5.0) g/dL TSH (0.32-4.0) uIU/mL Ethyl Alcohol mg/dL 02/26/22 02/26/22 Range/Units 14:38 14:38 WBC (4.8-10.8) X10*3/uL RBC (4.60-5.80) X10*6/uL Hgb (14.0-18.0) g/dl Hct (42.0-52.0) % MCV (80.0-98.0) fL MCH (27.0-33.0) pg MCHC (31.0-36.0) g/dl RDW (11.0-16.0) % Plt Count (160-400) X10*3/uL MPV (9.4-12.4) fL Immature Gran % (Auto) (0.0-0.4) % Neut % (Auto) (45-73) % Lymph % (Auto) (20-40) % [place] % (Auto) (2-11) % Eos % (Auto) (0-4) % Baso % (Auto) (0-2) % Lymph # (Auto) (1.2-4.9) X10*3/uL [place] # (Auto) (0.1-1.2) X10*3/uL Eos # (Auto) (0.0-0.4) X10*3/uL Baso # (Auto) (0.0-0.2) X10*3/uL Abs Immat Gran (auto) (0.00-0.03) X10*3/uL Absolute Neuts (auto) (2.0-8.3) x10*3/uL Absolute Nucleated RBC (0.0-0.012) X10*3/uL Nucleated RBC % (auto) (0.0-0.2) /100WBC PT 11.9 (10.0-13.1) SEC INR 1.0 (0.9-1.1) APTT 26.0 (26.0-36.4) SEC VBG pH (7.32-7.43) VBG pCO2 mmHg VBG pO2 mmHg VBG HCO3 (22-26) mmol/L VBG O2 Saturation % VBG Base Excess mmol/L Sodium (135-145) mmol/L Potassium (3.3-5.1) mmol/L Chloride (96-108) mmol/L Carbon Dioxide (22-29) mmol/L Anion Gap (12-20) BUN (9-16) mg/dL Creatinine (0.5-1.4) mg/dL Estim Creat Clear Calc Estimated GFR Random Glucose (60-115) mg/dL Lactic Acid (0.5-2.0) mmol/L Lactic Acid F/U @ 2Hr 1.7 (0.5-2.0) mmol/L Calcium (8.4-10.2) mg/dL Phosphorus (2.7-4.5) mg/dL Magnesium (1.6-2.6) mg/dL Total Bilirubin (0.0-1.0) mg/dL Direct Bilirubin (0.0-0.5) mg/dL AST (5-37) U/L ALT (0-40) U/L Alkaline Phosphatase (39-117) U/L Ammonia (13-55) umol/L Total Creatine Kinase (38-174) U/L Troponin I High Sens (<3.5-35.0) ng/L Total Protein (6.5-8.0) g/dL Albumin (3.5-5.0) g/dL TSH (0.32-4.0) uIU/mL Ethyl Alcohol mg/dL ECG Data ECG #1: Attestation: I personally reviewed and interpreted this ECG as follows: ECG interpretation date: 02/26/22 ECG interpretation time: 13:50 Interpretation: sinus tachycardia, ventricular rate 117 beats per minute, normal QTC, artifact is present, question of possible [address] depression in V4 however artifact is making it difficult to fully assess. No ST segment elevations Critical Care Time Critical Care Time Critical Care Time: Yes Total Critical Care Time: 39 Attestation: I have personally provided critical care time exclusive of time spent on separately billable procedures. Time includes review of lab data, radiology results, discussion with consultants, and monitoring for potential decompensation. Intervention performed as documented. Discharge Plan Discharge Clinical Impression: Acute encephalopathy, Alcohol withdrawal Patient Disposition: Admitted As Inpatient
--- NOTE | 2022-02-26 11:05 | ECG_ITS ---
Test Reason : AMS Blood Pressure : / mmHG Vent. Rate : 117 BPM Atrial Rate : 117 BPM P-R Int : 116 ms QRS Dur : 076 ms QT Int : 338 ms P-R-T Axes : 077 073 046 degrees QTc Int : 471 ms Sinus tachycardia Nonspecific ST abnormality Abnormal ECG When compared with ECG of 22-APR-2021 20:04, Premature ventricular complexes are no longer Present ST now depressed in Anterior leads Nonspecific T wave abnormality now evident in Inferior leads Referred By: Katherien Dennis Electronically Signed By:YNES MEJIA MD
--- NOTE | 2022-02-26 11:38 | PC.NURSE ---
Pt presents to ED obtunded. Skin tanned/flushed. Lucid intermittently. Denies pain and denies ETOH today but admits to daily use. Unable to answer all questions asked or follow commands for neuro assessment. Katherine MAYO notified and pt to CT scan at this time. Pt ill kempt, dried feces all over body noted. Sinus tach on tele 115-120.
[2022-02-26 12:18] LABS: Basophils Percent Auto 0.3 % (0-2); Eosinophils Absolute Auto 0.1 X10*3/uL (0.0-0.4); Eosinophils Percent Auto 0.6 % (0-4); Hemoglobin 10.3 g/dl (14.0-18.0); Imm Gran Abs Auto 0.06 X10*3/uL (0.00-0.03); Imm Gran Pct Auto 0.7 % (0.0-0.4); Lymphocytes Absolute Auto 1.5 X10*3/uL (1.2-4.9); Lymphocytes Percent Auto 16.5 % (20-40); MANUAL DIFF FLAG NO; Mean Corpuscular HGB Conc 35.5 g/dl (31.0-36.0); Mean Corpuscular Hemoglobin 39.5 pg (27.0-33.0); Monocytes Absolute Auto 0.8 X10*3/uL (0.1-1.2); Monocytes Percent Auto 8.7 % (2-11); NRBC Pct Auto 0.7 /100WBC (0.0-0.2); Neutrophils Absolute Auto 6.5 x10*3/uL (2.0-8.3); Neutrophils Percent Auto 73.2 % (45-73); Platelet Count 234 X10*3/uL (160-400); Red Blood Count 2.61 X10*6/uL (4.60-5.80); Red Cell Distribution Width 15.2 % (11.0-16.0); White Blood Count 8.9 X10*3/uL (4.8-10.8)
[2022-02-26 12:20] LABS: Mean Corpuscular Volume 111.1 fL (80.0-98.0)
[2022-02-26 12:33] LABS: Ammonia 46 umol/L (13-55)
[2022-02-26 12:42] LABS: Alanine Aminotransferase 208 U/L (0-40); Albumin Level 3.5 g/dL (3.5-5.0); Alkaline Phosphatase 102 U/L (39-117); Anion Gap 27 (12-20); Aspartate Amino Transferase 252 U/L (5-37); Bilirubin Direct 1.3 mg/dL (0.0-0.5); Blood Urea Nitrogen 34 mg/dL (9-16); Calcium 8.7 mg/dL (8.4-10.2); Carbon Dioxide 23 mmol/L (22-29); Chloride 96 mmol/L (96-108); Creatinine Clr Calc Pharmacy 75.8; Estimated Glomerular Filt Rate > 60; Ethanol < 10 mg/dL; Glucose Random 98 mg/dL (60-115); Magnesium 1.8 mg/dL (1.6-2.6); Potassium 3.3 mmol/L (3.3-5.1); Sodium 143 mmol/L (135-145); Total Protein 7.5 g/dL (6.5-8.0)
[2022-02-26 12:46] LABS: Troponin-I High Sensitivity < 3.5 ng/L (<3.5-35.0)
[2022-02-26] MEDS: 0.9 % Sodium Chloride 1,000 ML 999 ML IVCONT (12:46)
[2022-02-26 12:49] LABS: VBG Base Excess 3.9 mmol/L; VBG HCO3 26 mmol/L (22-26); VBG pCO2 32 mmHg; VBG pH 7.51 (7.32-7.43); VBG pO2 58 mmHg
[2022-02-26 12:50] LABS: Venous Blood Gas Refer to POC result
[2022-02-26 12:55] LABS: Lactic Acid 2.4 mmol/L (0.5-2.0)
[2022-02-26 14:03] LABS: Phosphorus 2.4 mg/dL (2.7-4.5)
[2022-02-26 14:09] LABS: Reflex Lactate? Lactic Acid Added
--- NOTE | 2022-02-26 14:09 | PHA.MEDREC ---
Pharmacy Consult ? Medication Reconciliation Pharmacy has completed the medication reconciliation. Pt has no claim history, spoke to pt's sister Madisyn on the phone, she states she has not seen him in a month but noted that he refuses to see a doctor so last she knew he had no prescription medications; matched this with no claim history for no known home meds.
--- NOTE | 2022-02-26 14:11 | MHC.RECOVRN ---
This underwriter solicitation director checked on pt, pt not alert, not oriented, non verbal at the time.
[2022-02-26] MEDS: Thiamine HCL 500 MG in 0.9 % Sodium Chloride 100 ML 210 MG IV ×2 (14:42→21:00)
--- NOTE | 2022-02-26 14:47 | PM.IMHP ---
History of Present Illness Date of Service: 02/26/22 Attending physician on admission: Amada Jarrett Chief Complaint: Found Down, Confusion This is a 51-year-old male with a history of alcohol dependence who was brought in by the police after being found down covered in feces. He is awake and alert and able to answer some basic questions but overall he is confused and unable to give any significant history. Reportedly he was hallucinating. In the emergency department he was noted to be tachycardic heart rate in the 120s, heart rate has started to improve with IV fluid. Lab work was obtained and revealed elevated lactic acid at 2.4, elevated LFT with AST of 252 an ALT of 208. He denies any abdominal pain at this time began at this point he is a poor and unreliable historian. He underwent C-spine and brain CT which showed no evidence of intracranial pathology or acute fracture. Alcohol level was less than 10. Patient does report drinking alcohol on a daily basis but is unable to quantify stating that he drinks ?1 oz daily? but also states that he smokes 1 oz of tobacco daily and 1 oz of marijuana daily. He was treated with IV fluid, high-dose thiamine, folic acid and IV fluid and the decision was made to admit him to the hospital for further management. Review of Systems Review of Systems: Yes Unobtainable due to mental condition Neurologic: Reports confusion Psychiatric: Psychiatric: Reports confusion [facility] Medical History Alcohol abuse Alcohol withdrawal delirium Hypomagnesemia Hyponatremia Leukocytosis Visual hallucinations Pertinent family history: Unable to be obtained due to patient mental status Surgical History No significant past surgical history Social History Household Members: None Household Members Other:: sister Housing: Homeless Do you presently have visiting nurse or other home services: No Alcohol intake: current Patient Tobacco Use Status: Current everyday Tobacco user Tobacco use type: Cigarette Cigarette Packs Per Day: 1 Cigarettes Per Day: 20.0 Years Smoked: 15 Smoked in Last 30 Days: Yes Patient Interested in Nicotine Replacement: No Patient Given Instructions on How to Stop Smoking: Yes Date Education Initiated: 02/26/22 Second Hand Smoke Exposure: No Use of substances other than those prescribed or required for medical reasons: Yes Substance Use Type: Marijuana Substance Use Frequency: Weekly Last Used Substance: Days (ago) Currently Displaying Signs/Symptoms of Drug Intoxication Withdrawal: No Have you been hit, kicked, punched, or otherwise hurt by someone within the past year? If so, by whom?: No Do you feel safe in your current relationship?: No Current Relationship Is there a partner from a previous relationship who is making you feel unsafe now?: No Are you made to feel afraid or neglected: No Advance Directives: No Advance Directives Information Provided: Yes Do you have thoughts of harming others: None Do you have a plan to hurt others: No Plan Recently lost weight without trying: Unsure Nutrition Risks: No Nutritional Risk service: No Current occupational status: disabled Meds Allergies Allergy/AdvReac Type Severity Reaction Status Date / Time No Known Allergies Allergy Unverified 04/22/21 18:34 Active Medications: Current Medications Dextrose/Sodium Chloride (D5ns) 1,000 mls @ 100 mls/hr IVCONT .Q10H XAVIER Thiamine HCl 500 mg/ Sodium (Chloride) 105 mls @ 210 mls/hr IV Q12H XAVIER Stop: 02/27/22 03:14 Thiamine HCl 200 mg/ Sodium (Chloride) 102 mls @ 204 mls/hr IV DAILY XAVIER Stop: 03/04/22 08:59 Pharmacy Consult (Consult Rx Perform Med Rec) 1 each MISCELLANE ONCE PRN PRN Reason: Consult order Pharmacy Consult (Consult Rx Etoh Phenob Im/Po) 0 each MISCELLANE ONCE PRN; Protocol PRN Reason: Consult order Phenobarbital (Phenobarbital 15 Mg Tablet) 45 mg PO BID [facility]; Protocol Stop: 02/28/22 21:01 Phenobarbital (Phenobarbital 30 Mg Tablet) 30 mg PO BID XAVIER; Protocol Stop: 03/02/22 21:01 Phenobarbital (Phenobarbital 30 Mg Tablet) 30 mg PO DAILY [facility]; Protocol Stop: 03/04/22 09:01 Phenobarbital Sodium (Phenobarbital Sodium 130 Mg/Ml Im Once) 220 mg IM ONCE ONE; Protocol Stop: 02/26/22 15:01 Phenobarbital Sodium (Phenobarbital Sodium 130 Mg/Ml Vial Im Q3hx2) 165 mg IM Q3H XAVIER; Protocol Stop: 02/26/22 21:01 Home Medications Medication Instructions Recorded Confirmed Last Taken Type No Known Home Meds 04/22/21 02/26/22 Unknown History Physical Exam Vital Signs and Narrative: Vital Signs: Last Vital Signs Pulse 120 H 02/26/22 11:34 Resp 16 02/26/22 11:34 BP 139/74 02/26/22 11:34 Pulse Ox 96 02/26/22 11:34 O2 Del Method 02/26/22 11:34 BMI result Body Mass Index 22.1 Const: General: alert, awake, confusion and poor hygiene Nutritional Appearance: thin Orientation/consciousness: oriented to person and confusion Resp: Effort & Inspection: normal respiratory effort, able to speak in complete sentences and no respiratory distress Auscultation: clear to auscultation bilaterally Cardio: Rate: tachycardic Heart sounds: S1 normal heart sound present and S2 normal heart sound present GI: Inspection: No distended Palpation (GI): Soft to palpation and nontender Skin: Other: dry scaly skin to b/l hands, legs caking of dirt under all fingernails Neuro: Other: difficult to assess, moving all extremities, but wanting to keep legs coverered. Confused, following some commands, answering some questions, thinks he is at the grocery store and year is [id number]. Speech clear no focal deficits appreciated. No obvious nystagmus, but not following commands well General: oriented to person and confusion Extrem: Other: difficult to assess, patient won't straighten out legs and will not allow them to be uncovered, keep pushing the sheets back over his legs. Psych: Appearance: disheveled Results Labs CBC and Chem 7: 02/28/22 06:57 02/28/22 06:57 Labs: Laboratory Results - last 24 hr 02/26/22 02/26/22 02/26/22 12:03 12:03 12:03 MCV 111.1 H MCH 39.5 H MCHC 35.5 RDW 15.2 Plt Count 234 MPV 10.0 Immature Gran % (Auto) 0.7 H Neut % (Auto) 73.2 H Lymph % (Auto) 16.5 L [place] % (Auto) 8.7 Eos % (Auto) 0.6 Baso % (Auto) 0.3 Lymph # (Auto) 1.5 [place] # (Auto) 0.8 Eos # (Auto) 0.1 Baso # (Auto) 0.0 Abs Immat Gran (auto) 0.06 H Absolute Neuts (auto) 6.5 Absolute Nucleated RBC 0.060 H Nucleated RBC % (auto) 0.7 H VBG pH VBG pCO2 VBG pO2 VBG HCO3 VBG O2 Saturation VBG Base Excess Anion Gap 27 H Estim Creat Clear Calc 75.8 Estimated GFR > 60 Random Glucose 98 Lactic Acid Calcium 8.7 D Phosphorus 2.4 L Magnesium 1.8 Total Bilirubin 2.0 H Direct Bilirubin 1.3 H AST 252 H ALT 208 H Alkaline Phosphatase 102 D Ammonia 46 Total Creatine Kinase 16 L Total Protein 7.5 D Albumin 3.5 D TSH 1.80 Ethyl Alcohol < 10 02/26/22 02/26/22 12:03 12:45 MCV MCH MCHC RDW Plt Count MPV Immature Gran % (Auto) Neut % (Auto) Lymph % (Auto) [place] % (Auto) Eos % (Auto) Baso % (Auto) Lymph # (Auto) [place] # (Auto) Eos # (Auto) Baso # (Auto) Abs Immat Gran (auto) Absolute Neuts (auto) Absolute Nucleated RBC Nucleated RBC % (auto) VBG pH 7.51 H VBG pCO2 32 VBG pO2 58 VBG HCO3 26 VBG O2 Saturation 85.0 VBG Base Excess 3.9 Anion Gap Estim Creat Clear Calc Estimated GFR Random Glucose Lactic Acid 2.4 H* Calcium Phosphorus Magnesium Total Bilirubin Direct Bilirubin AST ALT Alkaline Phosphatase Ammonia Total Creatine Kinase Total Protein Albumin TSH Ethyl Alcohol Imaging Radiologist's Impressions: Impressions Cervical Spine CT 02/26/22 11:57 IMPRESSION: 1. No acute intracranial pathology. 2. No acute fracture or malalignment in the cervical spine. Head CT 02/26/22 11:57 IMPRESSION: 1. No acute intracranial pathology. 2. No acute fracture or malalignment in the cervical spine. Assessment and Plan (1) Acute encephalopathy: Status: Acute (2) Alcohol withdrawal: Status: Acute Plan This is a 51-year-old male with history of alcohol abuse brought to the emergency department after being found down by HPD being admitted for confusion Metabolic encephalopathy Likely secondary to alcohol withdrawal/delirium Brain CT negative for acute stroke Difficult to assess but does not appear to have any acute neurological deficits at this time Ammonia negative, TSH wnl, renal function at baseline Tox screen pending Will treat with high dose thiamine for possible Wernicke's encephlopathy aspiration precautions, neuro checks alcohol dependence with alcohol withdrawal -phenobarbital protocol -thiamine, folate supplementation -follow electrolytes -seizure precautions -care team evaluation when medically stable Elevated lactic acid Resolved with IVF likely r/t dehydration no evidence of infection at this time Tachycardia Sinus tachycardia likely secondary to hypovolemia Improving with IV fluid ST depression on EKG Denies chest pain although unreliable Initial troponin negative, repeat 3 hour troponin Transaminitis Likely secondary to alcohol use Denies intravenous drug use Denies abdominal pain -follow LFTs Macrocytic anemia appears chronic likely r/t alcohol use -will check b12, folate levels dvt ppx-lovenox code status - presumed to be full code Attending - Dr. Allen Patient will likely require two midnight stay in the hospital for management of alcohol withdrawal/delirium, enephalopathy, transaminitis Quality Stroke Does the patient have a stroke diagnosis?: No VTE Prior VTE?: No VTE Risk Level:: Medical - moderate - high VTE Device Contraindication: N/A - Device Ordered VTE Drug Contraindication: N/A - Med Ordered
[2022-02-26 14:48] LABS: Prothrombin Time 11.9 SEC (10.0-13.1)
--- NOTE | 2022-02-26 14:51 | PC.NURSE ---
Addendum entered by Leslee Abrams 02/26/22 14:52: states things inappropriate to situation. Able to recite year and [place] when asked about where he is. Appears to be responding to surroundings, hallucinating. CIWA completed however pt unable to answer some questions asked, CIWA 13. HR has trended down to low 100s, s/p fluid administration. Thiamine infusing at this time, awaiting folic acid from pharmacy. Original Note: Pt more alert but remains confused/disoriented. Answers some questions appropriately but will suddenly [id number]
[2022-02-26 14:55] LABS: ~Lactic Acid-LAB USE ONLY 1.7 mmol/L (0.5-2.0)
[2022-02-26] MEDS: Folic Acid 1 MG in 0.9 % Sodium Chloride 50 ML 100.4 MG IV (15:04)
[2022-02-26] MEDS: PHENobarbitaL sodium 130 MG/ML IM ONCE 220 MG IM (15:08)
[2022-02-26] MEDS: Enoxaparin Sodium 40 MG/0.4 ML SYRINGE SUBCUT (15:08)
[2022-02-26] MEDS: Dextrose 5 % and 0.9 % NaCl 1,000 ML 100 ML IVCONT (15:35)
[2022-02-26 15:43] LABS: Troponin-I High Sensitivity < 3.5 ng/L (<3.5-35.0)
--- NOTE | 2022-02-26 16:28 | PC.NURSE ---
pt pulled out IV, ivf paused.
--- NOTE | 2022-02-26 16:51 | PC.NURSE ---
20G placed left forearm, D5NS restarted at 100ml/hr, pt repositioned w clean blankets, resting comfortably.
[2022-02-26 17:29] LABS: Appearance Urine HAZY; Color Urine DK YELLOW; Glucose Urine UA NEG (NEG); Leukocyte Esterase Urine TRACE (NEG); Nitrite Urine POS (NEG); PH 6.5 (5.0-8.0); Specific Gravity - Urine 1.025 (1.005-1.025); UACC Culture Trigger YES; Urine Blood TRACE (NEG); Urine Ketones 15 MG/DL (NEG); Urine Protein 1+ MG/DL (NEG-TRACE)
[2022-02-26 17:43] LABS: Bacteria Urine 2+ /LPF; RBC Urine 0-2 /HPF (0); Squamous Epithelial Cell Urine 2+ /LPF; WBC Urine 0-2 /HPF (0-4)
[2022-02-26 17:44] LABS: Amphetamine Screen Urine Not Detected (Not Detect); Barbiturates, Urine Not Detected (Not Detect); Benzodiazepines Screen Urine Not Detected (Not Detect); Cannabinoid Screen Urine POSITIVE (Not Detect); Cocaine Screen Urine Not Detected (Not Detect); Fentanyl, urine Not Detected (Not Detect); Opiate Screen Urine Not Detected (Not Detect); Phencyclidine Screen Urine Not Detected (Not Detect)
[2022-02-26 18:05] LABS: COVID-19 Test Negative (Negative); IDNOW Serial# 16C4AD1C
[2022-02-26] MEDS: PHENobarbitaL sodium 130 MG/ML VIAL IM Q3Hx2 165 MG IM ×2 (18:11→21:01)
--- NOTE | 2022-02-26 19:23 | PC.NURSE ---
pt urinated large amount of urine on floor, changed and cleaned as much as pt would tolerate. socks removed - saturated in urine. large amount of skin flaking from bilateral feed. engorged tick found on back - appeared to have been attached for a while, pt reports finding others on him. provider notified.
[2022-02-26 19:25] LABS: Glucose, Whole Blood 94 mg/dL (60-115)
--- NOTE | 2022-02-26 19:52 | PC.NURSE ---
attempted to call in report to IM, no answer, nurse contacted via [employer].
--- NOTE | 2022-02-26 20:15 | PC.NURSE ---
RN-RN report given.
--- NOTE | 2022-02-26 20:25 | PC.NURSE ---
pt refusing cardiac leads for transport to floor.
[2022-02-26] MEDS: 0.9 % Sodium Chloride Flush 3 ML SYRINGE IVFLUSH (21:02)
[2022-02-27] MEDS: Dextrose 5 % and 0.9 % NaCl 1,000 ML 100 ML IVCONT ×3 (02:12→19:35)
[2022-02-27 03:52] VITALS: BP 138/73; PULSE 92; RESP 16; O2SAT 100
[2022-02-27 06:31] LABS: MANUAL DIFF FLAG NO
[2022-02-27 06:35] LABS: Basophils Absolute Auto 0.1 X10*3/uL (0.0-0.2); Basophils Percent Auto 0.7 % (0-2); Eosinophils Absolute Auto 0.2 X10*3/uL (0.0-0.4); Eosinophils Percent Auto 2.2 % (0-4); Hematocrit 25.5 % (42.0-52.0); Hemoglobin 8.7 g/dl (14.0-18.0); Imm Gran Abs Auto 0.09 X10*3/uL (0.00-0.03); Imm Gran Pct Auto 1.2 % (0.0-0.4); Lymphocytes Absolute Auto 1.1 X10*3/uL (1.2-4.9); Lymphocytes Percent Auto 15.1 % (20-40); Mean Corpuscular HGB Conc 34.1 g/dl (31.0-36.0); Mean Corpuscular Hemoglobin 39.2 pg (27.0-33.0); Monocytes Absolute Auto 0.5 X10*3/uL (0.1-1.2); Monocytes Percent Auto 7.4 % (2-11); NRBC Pct Auto 0.5 /100WBC (0.0-0.2); Neutrophils Absolute Auto 5.4 x10*3/uL (2.0-8.3); Neutrophils Percent Auto 73.4 % (45-73); Platelet Count 242 X10*3/uL (160-400); Red Blood Count 2.22 X10*6/uL (4.60-5.80); Red Cell Distribution Width 15.5 % (11.0-16.0); White Blood Count 7.3 X10*3/uL (4.8-10.8)
[2022-02-27 06:46] LABS: Mean Corpuscular Volume 114.9 fL (80.0-98.0)
[2022-02-27 07:08] LABS: Alanine Aminotransferase 146 U/L (0-40); Albumin Level 2.9 g/dL (3.5-5.0); Alkaline Phosphatase 83 U/L (39-117); Anion Gap 17 (12-20); Aspartate Amino Transferase 178 U/L (5-37); Bilirubin Direct 0.8 mg/dL (0.0-0.5); Bilirubin Total 1.1 mg/dL (0.0-1.0); Blood Urea Nitrogen 22 mg/dL (9-16); Calcium 7.8 mg/dL (8.4-10.2); Carbon Dioxide 28 mmol/L (22-29); Chloride 104 mmol/L (96-108); Creatinine Clr Calc Pharmacy 95.1; Estimated Glomerular Filt Rate > 60; Glucose Random 102 mg/dL (60-115); Magnesium 1.9 mg/dL (1.6-2.6); Potassium 2.9 mmol/L (3.3-5.1); Sodium 146 mmol/L (135-145); Total Protein 5.9 g/dL (6.5-8.0)
[2022-02-27 07:29] LABS: Folate 3.6 ng/mL (> or = 4.0); Vitamin B12 772 pg/mL (200-900)
[2022-02-27 08:00] VITALS: BP 96/72; PULSE 135; RESP 20; TEMP 36.3; O2SAT 94
[2022-02-27] MEDS: Potassium Chloride ER 20 MEQ TAB.ER.PRT 40 MEQ PO ×2 (08:54→17:13)
[2022-02-27] MEDS: PHENobarbitaL 15 MG TABLET 45 MG PO ×2 (08:56→19:37)
[2022-02-27] MEDS: Folic Acid 1 MG TABLET PO (08:56)
[2022-02-27] MEDS: Thiamine HCL 500 MG in 0.9 % Sodium Chloride 100 ML 210 MG IV (09:01)
--- NOTE | 2022-02-27 10:33 | P.PNIM_ITS ---
Subjective Subjective Date of Service: 02/27/22 Review of Systems Follow up ETOH, encephalopathy seems to be slowly improving denied pain good appetite Physical Exam Vital Signs: Vital Signs: Last Vital Signs Temp 97.3 F 02/27/22 08:00 Pulse 135 H 02/27/22 08:00 Resp 20 02/27/22 08:00 BP 96/72 02/27/22 08:00 Pulse Ox 94 02/27/22 08:00 O2 Del Method 02/27/22 08:00 BMI result Body Mass Index 20.5 Appearing in no acute distress, unkept appearance lung sounds are clear to auscultation heart regular rate rhythm, clear S1, S2 positive bowel sounds, abdomen is soft, nontender neuro patient is alert x3, no focal deficits Objective Data Active Medications Docusate Sodium (Docusate Sodium 100 Mg Capsule) 100 mg PO DAILY PRN PRN Reason: Constipation Enoxaparin Sodium (Enoxaparin Sodium 40 Mg/0.4 Ml Syringe) 40 mg SUBCUT Q24H COUNTS INCLUDE 234 BEDS AT THE [facility] Last Admin: 02/26/22 15:08 Dose: 40 mg Documented By: BRYANT Folic Acid (Folic Acid 1 Mg Tablet) 1 mg PO DAILY COUNTS INCLUDE 234 BEDS AT THE [facility] Last Admin: 02/27/22 08:56 Dose: 1 mg Documented By: RENEE Dextrose/Sodium Chloride (D5ns) 1,000 mls @ 100 mls/hr IVCONT .Q10H COUNTS INCLUDE 234 BEDS AT THE [facility] Last Admin: 02/27/22 02:12 Dose: 100 mls/hr Documented By: GARRICK Thiamine HCl 200 mg/ Sodium (Chloride) 102 mls @ 204 mls/hr IV Q24H COUNTS INCLUDE 234 BEDS AT THE [facility] Pharmacy Consult (Consult Rx Perform Med Rec) 1 each MISCELLANE ONCE PRN PRN Reason: Consult order Pharmacy Consult (Consult Rx Etoh Phenob Im/Po) 0 each MISCELLANE ONCE PRN; Protocol PRN Reason: Consult order Phenobarbital (Phenobarbital 15 Mg Tablet) 45 mg PO BID COUNTS [facility]CLUDE 234 BEDS AT THE [facility]; Protocol Stop: 02/28/22 21:01 Last Admin: 02/27/22 08:56 Dose: 45 mg Documented By: RENEE Phenobarbital (Phenobarbital 30 Mg Tablet) 30 mg PO BID COUNTS INCLUDE 234 BEDS AT THE [facility]; Protocol Stop: 03/02/22 21:01 Phenobarbital (Phenobarbital 30 Mg Tablet) 30 mg PO DAILY COUNTS INCLUDE 234 BEDS AT THE [facility]; Protocol Stop: 03/04/22 09:01 Sodium Chloride (0.9 % Sodium Chloride Flush 3 Ml Syringe) 3 ml IVFLUSH QSHIFT XAVIER Last Admin: 02/27/22 08:56 Dose: Not Given Documented By: RENEE Non-Admin Reason: IV Running Labs CBC & Chem 7: 02/27/22 06:10 02/27/22 06:10 Labs: Laboratory Results - last 24 hr 02/26/22 02/26/22 02/26/22 12:03 12:03 12:03 MCV 111.1 H MCH 39.5 H MCHC 35.5 RDW 15.2 Plt Count 234 MPV 10.0 Immature Gran % (Auto) 0.7 H Neut % (Auto) 73.2 H Lymph % (Auto) 16.5 L [place] % (Auto) 8.7 Eos % (Auto) 0.6 Baso % (Auto) 0.3 Lymph # (Auto) 1.5 [place] # (Auto) 0.8 Eos # (Auto) 0.1 Baso # (Auto) 0.0 Abs Immat Gran (auto) 0.06 H Absolute Neuts (auto) 6.5 Absolute Nucleated RBC 0.060 H Nucleated RBC % (auto) 0.7 H PT INR APTT VBG pH VBG pCO2 VBG pO2 VBG HCO3 VBG O2 Saturation VBG Base Excess Anion Gap 27 H Estim Creat Clear Calc 75.8 Estimated GFR > 60 POC Glucose Random Glucose 98 Lactic Acid Lactic Acid F/U @ 2Hr Calcium 8.7 D Phosphorus 2.4 L Magnesium 1.8 Total Bilirubin 2.0 H Direct Bilirubin 1.3 H AST 252 H ALT 208 H Alkaline Phosphatase 102 D Ammonia Total Creatine Kinase 16 L Total Protein 7.5 D Albumin 3.5 D Vitamin B12 Folate TSH 1.80 Urine Color Urine Appearance Urine pH Ur Specific Lohman Urine Protein Urine Glucose (UA) Urine Ketones Urine Blood Urine Nitrite Ur Leukocyte Esterase Urine RBC Urine WBC Ur Squamous Epith Cells Urine Bacteria Urine Opiates Screen Urine Fentanyl Screen Ur Barbiturates Screen Ur Phencyclidine Scrn Ur Amphetamines Screen U Benzodiazepines Scrn Urine Cocaine Screen U Marijuana (THC) Screen Ethyl Alcohol < 10 COVID-19 (CHANTAL) Negative COVID-19 Clin Com See Note 02/26/22 02/26/22 02/26/22 12:03 12:03 12:32 MCV MCH MCHC RDW Plt Count MPV Immature Gran % (Auto) Neut % (Auto) Lymph % (Auto) [place] % (Auto) Eos % (Auto) Baso % (Auto) Lymph # (Auto) [place] # (Auto) Eos # (Auto) Baso # (Auto) Abs Immat Gran (auto) Absolute Neuts (auto) Absolute Nucleated RBC Nucleated RBC % (auto) PT INR APTT VBG pH VBG pCO2 VBG pO2 VBG HCO3 VBG O2 Saturation VBG Base Excess Anion Gap Estim Creat Clear Calc Estimated GFR POC Glucose Random Glucose Lactic Acid 2.4 H* Lactic Acid F/U @ 2Hr Calcium Phosphorus Magnesium Total Bilirubin Direct Bilirubin AST ALT Alkaline Phosphatase Ammonia 46 Total Creatine Kinase Total Protein Albumin Vitamin B12 772 Folate 3.6 L TSH Urine Color Urine Appearance Urine pH Ur Specific Lohman Urine Protein Urine Glucose (UA) Urine Ketones Urine Blood Urine Nitrite Ur Leukocyte Esterase Urine RBC Urine WBC Ur Squamous Epith Cells Urine Bacteria Urine Opiates Screen Urine Fentanyl Screen Ur Barbiturates Screen Ur Phencyclidine Scrn Ur Amphetamines Screen U Benzodiazepines Scrn Urine Cocaine Screen U Marijuana (THC) Screen Ethyl Alcohol COVID-19 (CHANTAL) COVID-19 Clin Com 02/26/22 02/26/22 02/26/22 12:45 14:38 14:38 MCV MCH MCHC RDW Plt Count MPV Immature Gran % (Auto) Neut % (Auto) Lymph % (Auto) [place] % (Auto) Eos % (Auto) Baso % (Auto) Lymph # (Auto) [place] # (Auto) Eos # (Auto) Baso # (Auto) Abs Immat Gran (auto) Absolute Neuts (auto) Absolute Nucleated RBC Nucleated RBC % (auto) PT 11.9 INR 1.0 APTT 26.0 VBG pH 7.51 H VBG pCO2 32 VBG pO2 58 VBG HCO3 26 VBG O2 Saturation 85.0 VBG Base Excess 3.9 Anion Gap Estim Creat Clear Calc Estimated GFR POC Glucose Random Glucose Lactic Acid Lactic Acid F/U @ 2Hr 1.7 Calcium Phosphorus Magnesium Total Bilirubin Direct Bilirubin AST ALT Alkaline Phosphatase Ammonia Total Creatine Kinase Total Protein Albumin Vitamin B12 Folate TSH Urine Color Urine Appearance Urine pH Ur Specific [place]ohman Urine Protein Urine Glucose (UA) Urine Ketones Urine Blood Urine Nitrite Ur Leukocyte Esterase Urine RBC Urine WBC Ur Squamous Epith Cells Urine Bacteria Urine Opiates Screen Urine Fentanyl Screen Ur Barbiturates Screen Ur Phencyclidine Scrn Ur Amphetamines Screen U Benzodiazepines Scrn Urine Cocaine Screen U Marijuana (THC) Screen Ethyl Alcohol COVID-19 ([facility]AL) COVID-19 [employer] 02/26/22 02/26/22 02/26/22 19:18 Unknown Unknown MCV MCH MCHC RDW Plt Count MPV Immature Gran % (Auto) Neut % (Auto) Lymph % (Auto) [place] % (Auto) Eos % (Auto) Baso % (Auto) Lymph # (Auto) [place] # (Auto) Eos # (Auto) Baso # (Auto) Abs Immat Gran (auto) Absolute Neuts (auto) Absolute Nucleated RBC Nucleated RBC % (auto) PT INR APTT VBG pH VBG pCO2 VBG pO2 VBG HCO3 VBG O2 Saturation VBG Base Excess Anion Gap Estim Creat Clear Calc Estimated GFR POC Glucose 94 Random Glucose Lactic Acid Lactic Acid F/U @ 2Hr Calcium Phosphorus Magnesium Total Bilirubin Direct Bilirubin AST ALT Alkaline Phosphatase Ammonia Total Creatine Kinase Total Protein Albumin Vitamin B12 Folate TSH Urine Color DK YELLOW Urine Appearance HAZY Urine pH 6.5 Ur Specific [place] 1.025 Urine Protein 1+ H Urine Glucose (UA) NEG Urine Ketones 15 Urine Blood TRACE Urine Nitrite POS H Ur Leukocyte Esterase TRACE H Urine RBC 0-2 Urine WBC 0-2 Ur Squamous Epith Cells 2+ Urine Bacteria 2+ Urine Opiates Screen Not Detected Urine Fentanyl Screen Not Detected Ur Barbiturates Screen Not Detected Ur Phencyclidine Scrn Not Detected Ur Amphetamines Screen Not Detected U Benzodiazepines Scrn Not Detected Urine Cocaine Screen Not Detected U Marijuana (THC) Screen POSITIVE H Ethyl Alcohol COVID-19 ([facility]) COVID-19 [employer] 02/27/22 02/27/22 06:10 06:10 MCV 114.9 H MCH 39.2 H MCHC 34.1 RDW 15.5 Plt Count 242 MPV 10.0 Immature Gran % (Auto) 1.2 H Neut % (Auto) 73.4 H Lymph % (Auto) 15.1 L [place] % (Auto) 7.4 Eos % (Auto) 2.2 Baso % (Auto) 0.7 Lymph # (Auto) 1.1 L [place] # (Auto) 0.5 Eos # (Auto) 0.2 Baso # (Auto) 0.1 Abs Immat Gran (auto) 0.09 H Absolute Neuts (auto) 5.4 Absolute Nucleated RBC 0.040 H Nucleated RBC % (auto) 0.5 H PT INR APTT VBG pH VBG pCO2 VBG pO2 VBG HCO3 VBG O2 Saturation VBG Base Excess Anion Gap 17 Estim Creat Clear Calc 95.1 Estimated GFR > 60 POC Glucose Random Glucose 102 Lactic Acid Lactic Acid F/U @ 2Hr Calcium 7.8 L D Phosphorus Magnesium 1.9 Total Bilirubin 1.1 H Direct Bilirubin 0.8 H AST 178 H ALT 146 H Alkaline Phosphatase 83 Ammonia Total Creatine Kinase Total Protein 5.9 L D Albumin 2.9 L Vitamin B12 Folate TSH Urine Color Urine Appearance Urine pH Ur Specific Lohman Urine Protein Urine Glucose (UA) Urine Ketones Urine Blood Urine Nitrite Ur Leukocyte Esterase Urine RBC Urine WBC Ur Squamous Epith Cells Urine Bacteria Urine Opiates Screen Urine Fentanyl Screen Ur Barbiturates Screen Ur Phencyclidine Scrn Ur Amphetamines Screen U Benzodiazepines Scrn Urine Cocaine Screen U Marijuana (THC) Screen Ethyl Alcohol COVID-19 ([facility]) COVID-19 Clin Com Assessment and Plan (1) Acute encephalopathy: Status: Acute Plan This is a 51-year-old male with history of alcohol abuse brought to the emergency department after being found down by HPD being admitted for confusion Metabolic encephalopathy secondary to alcohol withdrawal/delirium Brain CT negative for acute stroke Ammonia negative, TSH wnl, renal function at baseline Tox screen pos for marijuana Will treat with high dose thiamine for possible Wernicke's encephlopathy aspiration precautions, neuro checks alcohol dependence with alcohol withdrawal phenobarbital protocol IV thiamine, folate supplementation seizure precautions care team evaluation when medically stable Elevated lactic acid Resolved with IVF likely r/t dehydration no evidence of infection at this time Tachycardia Sinus tachycardia likely secondary to hypovolemia Improving with IV fluid ST depression on EKG Denies chest pain although unreliable neg trops Transaminitis. trending down Likely secondary to alcohol use Denies intravenous drug use Denies abdominal pain ollow LFTs Macrocytic anemia appears chronic likely r/t alcohol use dvt ppx-lovenox code status - presumed to be full code Attending - Dr. Pulido continued hospitalization for management of alcohol withdrawal/delirium, encephalopathy, transaminitis Quality Stroke Does the patient have a stroke diagnosis?: No VTE Prior VTE?: No VTE Risk Level:: Medical - moderate - high VTE Device Contraindication: N/A - Device Ordered VTE Drug Contraindication: N/A - Med Ordered
--- NOTE | 2022-02-27 11:12 | P.CDIC_ITS ---
CDI Concurrent Query Documentation Clarification: PHYSICIAN'S DOCUMENTATION REQUEST Date of Query: 02/27/22 1113 Patient Name: Rod Aguilar Admit Date: 02/26/22 Dear Doctor, A review of the medical record indicates additional documentation may be needed. Please review below and update the documentation accordingly. Clinical Indicators: Is there a diagnosis that correlates with these lab findings: Risk Factors/Clinical Indicators/Treatments LABS: potassium 2.9 L Klor-con Patient with alcohol withdrawal/dehydration. Based on the above, could you clarify in the Progress Notes the appropriate diagnosis, if significant, that supports the above abnormalities and additional evaluation, monitoring, and/or treatment rendered: Hypokalemia or other etiology of lab findings * Labs indicate a diagnosis of (please specify) * Other (please specify) * Unable to determine Use of terms such as suspected, likely, concern for, or probable (associated with a specific diagnosis that is being evaluated, monitored, or treated as if it exists) are acceptable and can be coded in the inpatient setting, when documented at the time of discharge. Thank you, Leny Grace [facility], CDIS Extension: [phone] Please use your independent medical judgment in providing your response. THIS QUERY IS PART OF THE PERMANENT MEDICAL RECORD Other Diagnosis: HYpokalemia
[2022-02-27 11:23] VITALS: BP 98/52; PULSE 94; RESP 20; TEMP 36.6; O2SAT 99
[2022-02-27 13:43] LABS: Anion Gap 14 (12-20); Blood Urea Nitrogen 18 mg/dL (9-16); Calcium 8.1 mg/dL (8.4-10.2); Carbon Dioxide 29 mmol/L (22-29); Chloride 107 mmol/L (96-108); Estimated Glomerular Filt Rate > 60; Glucose Random 107 mg/dL (60-115); Potassium 3.1 mmol/L (3.3-5.1); Sodium 147 mmol/L (135-145)
--- NOTE | 2022-02-27 15:02 | MHC.CM.PN ---
Addendum entered by Julissa Gates 02/28/22 11:31: FOUR REFERRALS MADE, THREE HAVE BEEN DECLINED, VANTAGE OF CURRENTLY REVIEWING Original Note: PT REPORTS HE IS TECHNICALLY HOMELESS BUT STAYS WITH HIS SISTER WHEN HE CAN HE DENIES USING ANY DME OR HAVING ANY COMMUNITY SERVICES PT REPORTS HE HAS NO PCP AND NO HCP PT SAYS HE WAS COVID VACCINATED AND RECEIVED ONE BOOSTER PT REPORTS HE FEELS LIKE HE WOULD BENEFIT FROM STR PT REPORTS HE DOES NOT THINK HE CAN RETURN TO HIS SISTERS AT [place] AND FEELS TOO WEAK TO RETURN TO THE STREET HE REPORTS HE WOULD PREFER A SNF [place] REFERRALS MADE PT EVAL WILL BE NEEDED
[2022-02-27 15:24] VITALS: BP 98/54; PULSE 94; RESP 14; TEMP 36.7; O2SAT 99
[2022-02-27] MEDS: Enoxaparin Sodium 40 MG/0.4 ML SYRINGE SUBCUT (15:42)
[2022-02-27] MEDS: 0.9 % Sodium Chloride Flush 3 ML SYRINGE IVFLUSH (19:37)
[2022-02-27 20:00] VITALS: BP 102/59; PULSE 86; RESP 14; TEMP 36.8; O2SAT 100
[2022-02-27] MEDS: Thiamine HCL 200 MG in 0.9 % Sodium Chloride 100 ML 204 MG IV (20:59)
[2022-02-28] VITALS (8 sets, daily range): BP systolic 99–154; BP diastolic 60–96; PULSE 84–112; RESP 17–24; TEMP 36.6–37.7; O2SAT 94–100
[2022-02-28] MEDS: Dextrose 5 % and 0.9 % NaCl 1,000 ML 100 ML IVCONT (06:12)
[2022-02-28 08:01] LABS: Anion Gap 14 (12-20); Blood Urea Nitrogen 10 mg/dL (9-16); Calcium 8.5 mg/dL (8.4-10.2); Carbon Dioxide 24 mmol/L (22-29); Chloride 109 mmol/L (96-108); Creatinine Clr Calc Pharmacy 92.3; Estimated Glomerular Filt Rate > 60; Glucose Random 135 mg/dL (60-115); Potassium 3.4 mmol/L (3.3-5.1); Sodium 144 mmol/L (135-145)
[2022-02-28 08:34] LABS: Iron 59 mcg/dL (45-160); Percent Iron Saturation 33 % (15-50); Total Iron Binding Capacity 179 mcg/dL (228-428); Unsaturated Iron Binding 120 ug/dL
--- NOTE | 2022-02-28 09:10 | P.CDIC_ITS ---
CDI Concurrent Query Documentation Clarification: PHYSICIAN'S DOCUMENTATION REQUEST Date of Query: 02/28/22 0910 Patient Name: Rod Aguilar Admit Date: 02/26/22 Dear Doctor, A review of the medical record indicates additional documentation may be needed. Please review below and update the documentation accordingly. Risk Factors/Clinical Indicators/Treatments LABS: sodium 147 H IVF Please clarify the following: Is there a diagnosis that correlates with these lab findings: Hypernatremia or other etiology of labs * Other (please specify) * Unable to determine Use of terms such as suspected, likely, concern for, or probable (associated with a specific diagnosis that is being evaluated, monitored, or treated as if it exists) are acceptable and can be coded in the inpatient setting, when documented at the time of discharge. Thank you, Leny Grace [facility], CDIS Extension: [phone] Please use your independent medical judgment in providing your response. THIS QUERY IS PART OF THE PERMANENT MEDICAL RECORD Other Diagnosis: See note
[2022-02-28] MEDS: PHENobarbitaL 15 MG TABLET 45 MG PO ×2 (10:50→21:55)
[2022-02-28] MEDS: Folic Acid 1 MG TABLET PO (10:51)
[2022-02-28] MEDS: 0.9 % Sodium Chloride Flush 3 ML SYRINGE IVFLUSH ×2 (10:51→17:16)
[2022-02-28 12:19] LABS: Hematocrit 25.2 % (42.0-52.0); Hemoglobin 8.3 g/dl (14.0-18.0); Mean Corpuscular HGB Conc 32.9 g/dl (31.0-36.0); Mean Corpuscular Hemoglobin 39.7 pg (27.0-33.0); Mean Corpuscular Volume 120.6 fL (80.0-98.0); Mean Platelet Volume 10.6 fL (9.4-12.4); Platelet Count 262 X10*3/uL (160-400); Red Blood Count 2.09 X10*6/uL (4.60-5.80); Red Cell Distribution Width 16.1 % (11.0-16.0)
--- NOTE | 2022-02-28 13:22 | HO.PM.IMPN ---
Subjective Subjective Date of Service: 02/28/22 Review of Systems Follow up ETOH, encephalopathy seems to be slowly improving denied pain good appetite Physical Exam Vital Signs: Vital Signs: Last Vital Signs Temp 97.8 F 02/28/22 11:14 Pulse 84 02/28/22 11:14 Resp 18 02/28/22 11:14 BP 102/60 02/28/22 11:14 Pulse Ox 100 02/28/22 11:14 O2 Del Method 02/28/22 11:14 BMI result Body Mass Index 20.5 Appearing in no acute distress lung sounds are clear to auscultation heart regular rate rhythm, clear S1, S2 positive bowel sounds, abdomen is soft, nontender neuro patient is alert x3, no focal deficits Objective Data Active Medications Docusate Sodium (Docusate Sodium 100 Mg Capsule) 100 mg PO DAILY PRN PRN Reason: Constipation Enoxaparin Sodium (Enoxaparin Sodium 40 Mg/0.4 Ml Syringe) 40 mg SUBCUT Q24H [facility] Last Admin: 02/27/22 15:42 Dose: 40 mg Documented By: RENEE Folic Acid (Folic Acid 1 Mg Tablet) 1 mg PO DAILY [facility] Last Admin: 02/28/22 10:51 Dose: 1 mg Documented By: ROSSY Dextrose/Sodium Chloride (D5ns) 1,000 mls @ 100 mls/hr IVCONT .Q10H [facility] Last Admin: 02/28/22 06:12 Dose: 100 mls/hr Documented By: GARRICK Thiamine HCl 200 mg/ Sodium (Chloride) 102 mls @ 204 mls/hr IV Q24H [facility] Last Infusion: 02/27/22 21:30 Dose: 0 mls/hr Documented By: GARRICK Pharmacy Consult (Consult Rx Perform Med Rec) 1 each MISCELLANE ONCE PRN PRN Reason: Consult order Pharmacy Consult (Consult Rx Etoh Phenob Im/Po) 0 each MISCELLANE ONCE PRN; Protocol PRN Reason: Consult order Phenobarbital (Phenobarbital 15 Mg Tablet) 45 mg PO BID [facility]; Protocol Stop: 02/28/22 21:01 Last Admin: 02/28/22 10:50 Dose: 45 mg Documented By: ROSSY Phenobarbital (Phenobarbital 30 Mg Tablet) 30 mg PO BID [facility]; Protocol Stop: 08/04/22 21:01 Phenobarbital (Phenobarbital 30 Mg Tablet) 30 mg PO DAILY [facility]; Protocol Stop: 03/04/22 09:01 Sodium Chloride (0.9 % Sodium Chloride Flush 3 Ml Syringe) 3 ml IVFLUSH QSHIFT [facility] Last Admin: 02/28/22 10:51 Dose: 3 ml Documented By: ROSSY Labs CBC & Chem 7: 02/28/22 06:57 02/28/22 06:57 Labs: Laboratory Results - last 24 hr 02/27/22 02/28/22 02/28/22 13:13 06:57 06:57 MCV 120.6 H D MCH 39.7 H MCHC 32.9 RDW 16.1 H Plt Count 262 MPV 10.6 Absolute Nucleated RBC 0.070 H Nucleated RBC % (auto) 1.0 H Anion Gap 14 14 Estim Creat Clear Calc 91.0 92.3 Estimated GFR > 60 > 60 Random Glucose 107 135 H Calcium 8.1 L 8.5 Iron 59 TIBC 179 L % Saturation 33 Unsat Iron Binding 120 Microbiology Microbiology Results: Microbiology 02/26/22 17:50 Urine Culture - Final Urine clean catch - Clean Catch Midstream 02/26/22 12:03 Blood Culture - Preliminary Blood - Venous No growth after 24 hours. 02/26/22 12:03 Blood Culture - Preliminary Blood - Venous No growth after 24 hours. Assessment and Plan (1) Acute encephalopathy: Status: Acute Plan This is a 51-year-old homeless male with history of alcohol abuse brought to the emergency department after being found down by [employer] being admitted for confusion Hypernatremia. Resolved secondary to hypovolemia IV fluids Hypokalemia. Resolved Secondary to alcohol use repleted Metabolic encephalopathy secondary to alcohol withdrawal/delirium Brain CT negative for acute stroke Ammonia negative, TSH wnl, renal function at baseline Tox screen pos for marijuana Will treat with high dose thiamine for possible Wernicke's encephlopathy aspiration precautions, neuro checks PT consult pending alcohol dependence with alcohol withdrawal phenobarbital protocol IV thiamine, folate supplementation seizure precautions care team evaluation when medically stable Elevated lactic acid Resolved with IVF likely r/t dehydration no evidence of infection at this time Tachycardia Sinus tachycardia likely secondary to hypovolemia Improved with IV fluid ST depression on EKG Denies chest pain although unreliable neg trops Transaminitis. trending down Likely secondary to alcohol use Denies intravenous drug use Denies abdominal pain ollow LFTs Macrocytic anemia appears chronic likely r/t alcohol use dvt ppx-lovenox code status - presumed to be full code Attending - Dr. Pruitt continued hospitalization for management of alcohol withdrawal/delirium, encephalopathy, transaminitis Quality Stroke Does the patient have a stroke diagnosis?: No VTE Prior VTE?: No VTE Risk Level:: Medical - moderate - high VTE Device Contraindication: N/A - Device Ordered VTE Drug Contraindication: N/A - Med Ordered
[2022-02-28 16:22] LABS: Glucose, Whole Blood 120 mg/dL (60-115)
[2022-02-28] MEDS: Enoxaparin Sodium 40 MG/0.4 ML SYRINGE SUBCUT (17:16)
[2022-02-28 20:51] LABS: Glucose, Whole Blood 105 mg/dL (60-115)
[2022-02-28] MEDS: Thiamine HCL 200 MG in 0.9 % Sodium Chloride 100 ML 204 MG IV (21:56)
[2022-03-01 03:31] VITALS: BP 99/78; PULSE 72; RESP 18; TEMP 36.9; O2SAT 96
[2022-03-01 07:51] LABS: Anion Gap 14 (12-20); Blood Urea Nitrogen 7 mg/dL (9-16); Calcium 8.3 mg/dL (8.4-10.2); Carbon Dioxide 26 mmol/L (22-29); Chloride 101 mmol/L (96-108); Creatinine Clr Calc Pharmacy 101.1; Estimated Glomerular Filt Rate > 60; Glucose Random 97 mg/dL (60-115); Potassium 3.2 mmol/L (3.3-5.1); Sodium 138 mmol/L (135-145)
[2022-03-01 08:00] VITALS: BP 113/71; PULSE 89; RESP 20; TEMP 37; O2SAT 99
[2022-03-01] MEDS: Folic Acid 1 MG TABLET PO (08:24)
[2022-03-01] MEDS: PHENobarbitaL 30 MG TABLET PO ×2 (08:24→21:44)
[2022-03-01] MEDS: 0.9 % Sodium Chloride Flush 3 ML SYRINGE IVFLUSH ×3 (08:24→21:46)
--- NOTE | 2022-03-01 10:58 | MHC.CM.PN ---
Per ROUNDS discussion, Patient is not yet medically cleared for dc (IV Thiamine, CIWA is 4); PT is recommending STR and CM will continue to follow.
[2022-03-01 11:42] VITALS: BP 115/72; PULSE 87; RESP 18; TEMP 37.1; O2SAT 98
[2022-03-01 14:54] VITALS: BP 117/64; PULSE 104; RESP 18; TEMP 37.3; O2SAT 100
--- NOTE | 2022-03-01 14:56 | HO.PM.IMPN ---
Subjective Subjective Date of Service: 03/01/22 Interval History: Resting comfortably in bed, being followed for alcoholic encephalopathy, denies headache, no speech impairment, denies chest pain, no palpitations, no nausea no vomiting, patient seen by Physical therapy and they noted that patient has significant balance deficit with high risk for fall. Review of Systems Review of Systems: Yes all other systems are reviewed and are negative Physical Exam Vital Signs: Vital Signs: Last Vital Signs Temp 99.2 F 03/01/22 14:54 Pulse 104 H 03/01/22 14:54 Resp 18 03/01/22 14:54 BP 117/64 03/01/22 14:54 Pulse Ox 100 03/01/22 14:54 O2 Del Method 03/01/22 14:54 O2 Flow Rate 55 02/28/22 22:19 FiO2 100 02/28/22 22:19 BMI result Body Mass Index 20.5 Const: Other: General awake alert, resting comfortably, in no acute distress. Neck supple, no JVD. CVS regular rate rhythm, Respiratory lungs clear to auscultation, no respiratory distress, no wheeze, no rhonchi. Gastrointestinal abdomen soft, nontender, bowel sounds audible, no guarding , no rigidity. Extremities no edema. Neuro nonfocal , moving all 4 extremity speech clear, no tremor. Skin hyperemic raised red papular rash neck and both lower extremities with no associated itching. Objective Data Active Medications Docusate Sodium (Docusate Sodium 100 Mg Capsule) 100 mg PO DAILY PRN PRN Reason: Constipation Enoxaparin Sodium (Enoxaparin Sodium 40 Mg/0.4 Ml Syringe) 40 mg SUBCUT Q24H [facility] Last Admin: 02/28/22 17:16 Dose: 40 mg Documented By: CAITLIN Folic Acid (Folic Acid 1 Mg Tablet) 1 mg PO DAILY [facility] Last Admin: 03/01/22 08:24 Dose: 1 mg Documented By: ANA Thiamine HCl 200 mg/ Sodium (Chloride) 102 mls @ 204 mls/hr IV Q24H [facility] Last Infusion: 03/01/22 01:29 Dose: 0 mls/hr Documented By: CHUNG Multi-Ingred Cream/Lotion/Oil/Oint (Mineral Oil/Petrolatum,White 106 Gm Tube) 1 appl TOPICAL DAILY [facility]; Protocol Pharmacy Consult (Consult Rx Perform Med Rec) 1 each MISCELLANE ONCE PRN PRN Reason: Consult order Pharmacy Consult (Consult Rx Etoh Phenob Im/Po) 0 each MISCELLANE ONCE PRN; Protocol PRN Reason: Consult order Phenobarbital (Phenobarbital 30 Mg Tablet) 30 mg PO BID [facility]; Protocol Stop: 03/02/22 21:01 Last Admin: 03/01/22 08:24 Dose: 30 mg Documented By: ANA Phenobarbital (Phenobarbital 30 Mg Tablet) 30 mg PO DAILY [facility]; Protocol Stop: 03/04/22 09:01 Sodium Chloride (0.9 % Sodium Chloride Flush 3 Ml Syringe) 3 ml IVFLUSH QSHIFT [facility] Last Admin: 03/01/22 08:24 Dose: 3 ml Documented By: ANA Labs CBC & Chem 7: 02/28/22 06:57 03/01/22 06:37 Labs: Laboratory Results - last 24 hr 02/28/22 02/28/22 03/01/22 16:04 20:47 06:37 Anion Gap 14 Estim Creat Clear Calc 101.1 Estimated GFR > 60 POC Glucose 120 H 105 Random Glucose 97 Calcium 8.3 L Microbiology Microbiology Results: Microbiology 02/26/22 12:03 Blood Culture - Preliminary Blood - Venous No growth after 48 hours. 02/26/22 12:03 Blood Culture - Preliminary Blood - Venous No growth after 48 hours. Assessment and Plan (1) Acute encephalopathy: Status: Acute Plan This is a 51-year-old homeless male with history of alcohol abuse brought to the emergency department after being found down by [employer] being admitted for confusion Hypernatremia. Resolved secondary to hypovolemia IV fluids Hypokalemia. Potassium 3.2 Secondary to alcohol use Will replete and follow labs Metabolic encephalopathy Resolved patient awake alert was likely secondary to alcohol withdrawal/delirium Brain CT negative for acute stroke Ammonia negative, TSH wnl, renal function at baseline Tox screen pos for marijuana on IV thiamine for possible Wernicke's encephlopathy alcohol dependence with alcohol withdrawal Continue phenobarbital protocol IV thiamine, and folate supplementation seizure precautions care team evaluation when medically stable Seen by PT they recommend short-term rehab will reassess daily Elevated lactic acid Resolved with IVF,likely r/t dehydration no evidence of infection at this time Tachycardia Mild intermittent Sinus tachycardia likely secondary to alcohol withdrawal and hypovolemia improving. ST depression on EKG Denies chest pain although unreliable neg trops Transaminitis. trending down ,Likely secondary to alcohol use Denies intravenous drug use, tolerating diet denies nausea vomiting abdominal pain, follow LFT Macrocytic anemia appears chronic, low folic acid, no active GI bleed noted, likely r/t alcohol use with poor nutrition will replace folic acid and follow CBC dvt ppx-lovenox code status - full code continued hospitalization for management of alcohol withdrawal, and transaminitis Quality Stroke Does the patient have a stroke diagnosis?: No VTE Prior VTE?: No VTE Risk Level:: Medical - moderate - high VTE Device Contraindication: N/A - Device Ordered VTE Drug Contraindication: N/A - Med Ordered
[2022-03-01] MEDS: Potassium Chloride ER 20 MEQ TAB.ER.PRT 40 MEQ PO (15:34)
[2022-03-01] MEDS: Enoxaparin Sodium 40 MG/0.4 ML SYRINGE SUBCUT (15:34)
[2022-03-01] MEDS: Mineral Oil/Petrolatum,White 106 GM Tube 1 APPL TOPICAL (15:34)
[2022-03-01 20:00] VITALS: RESP 18
[2022-03-01] MEDS: Thiamine HCL 200 MG in 0.9 % Sodium Chloride 100 ML 204 MG IV (21:44)
[2022-03-02] VITALS (8 sets, daily range): BP systolic 102–132; BP diastolic 64–89; PULSE 76–95; RESP 17–20; TEMP 36.1–37.4; O2SAT 95–98
[2022-03-02 06:55] LABS: Anion Gap 12 (12-20); Blood Urea Nitrogen 10 mg/dL (9-16); Calcium 8.5 mg/dL (8.4-10.2); Carbon Dioxide 28 mmol/L (22-29); Chloride 101 mmol/L (96-108); Creatinine Clr Calc Pharmacy 99.6; Estimated Glomerular Filt Rate > 60; Glucose Random 105 mg/dL (60-115); Potassium 3.9 mmol/L (3.3-5.1); Sodium 137 mmol/L (135-145)
[2022-03-02 07:00] LABS: Magnesium 0.7 mg/dL (1.6-2.6)
[2022-03-02] MEDS: PHENobarbitaL 30 MG TABLET PO ×2 (08:54→22:05)
[2022-03-02] MEDS: Folic Acid 1 MG TABLET PO (08:54)
[2022-03-02] MEDS: 0.9 % Sodium Chloride Flush 3 ML SYRINGE IVFLUSH ×2 (08:55→17:22)
[2022-03-02] MEDS: Magnesium Sulfate/H2O 2 GM/50 ML PIGGYBACK IV ×2 (09:01→13:57)
[2022-03-02] MEDS: Mineral Oil/Petrolatum,White 106 GM Tube 1 APPL TOPICAL (09:21)
[2022-03-02] MEDS: Magnesium Oxide 400 MG TABLET PO ×2 (09:31→17:02)
[2022-03-02] MEDS: Acetaminophen 325 MG TABLET 650 MG PO (12:54)
--- NOTE | 2022-03-02 13:29 | P.PNIM_ITS ---
Subjective Subjective Date of Service: 03/02/22 Interval History: Awake alert answering questions appropriately eating breakfast, complaining of headache, denies lightheadedness dizziness, no weakness, no other acute issues overnight. Review of Systems GI no nausea, no vomiting, no diarrhea CVS no chest pain, no palpitation Respiratory no cough, no shortness of breath Review of Systems: Yes all other systems are reviewed and are negative Physical Exam Vital Signs: Vital Signs: Last Vital Signs Temp 97.6 F 03/02/22 12:00 Pulse 95 03/02/22 12:00 Resp 20 03/02/22 12:00 BP 116/76 03/02/22 12:00 Pulse Ox 97 03/02/22 12:00 O2 Del Method 03/02/22 12:00 O2 Flow Rate 55 02/28/22 22:19 FiO2 100 02/28/22 22:19 BMI result Body Mass Index 20.5 Const: Other: General awake aler t, in no acute dis tress.? Neck suppl e, no JVD. CVS? re gular rate rhythm, Respiratory lungs clear to ausculta tion, no respirato ry distress, no wh eeze, no rhonchi. Gastrointestinal a bdomen soft, nonte nder, bowel sounds audible, no guard ing , no rigidity. Extremities no ed howie. Neuro nonfoca l , moving all 4 e xtremity speech cl ear, no tremor. Sk in hyperemic raise d red papular rash neck and both low er extremities wit h no associated it conrado. Objective Data Active Medications Acetaminophen (Acetaminophen 325 Mg Tablet) 650 mg PO Q12H PRN PRN Reason: Pain, Mild (Pain Scale 1-3) Last Admin: 03/02/22 12:54 Dose: 650 mg Documented By: ERAN Docusate Sodium (Docusate Sodium 100 Mg Capsule) 100 mg PO DAILY PRN PRN Reason: Constipation Enoxaparin Sodium (Enoxaparin Sodium 40 Mg/0.4 Ml Syringe) 40 mg SUBCUT Q24H [facility] BEDS AT [facility] Last Admin: 03/01/22 15:34 Dose: 40 mg Documented By: GISELENOAL Folic Acid (Folic Acid 1 Mg Tablet) 1 mg PO DAILY [facility] 234 [facility]EDS AT [facility] Last Admin: 03/02/22 08:54 Dose: 1 mg Documented By: ERAN Thiamine HCl 200 mg/ Sodium (Chloride) 102 mls @ 204 mls/hr IV Q24H [facility] 234 BEDS AT THE [facility] Last Infusion: 03/01/22 23:06 Dose: 0 mls/hr Documented By: ALPESH Magnesium Oxide (Magnesium Oxide 400 Mg Tablet) 400 mg PO BIDPC COUNTS INCLUDE 234 BEDS AT THE [facility] Last Admin: 03/02/22 09:31 Dose: 400 mg Documented By: ERAN Multi-Ingred Cream/Lotion/Oil/Oint (Mineral Oil/Petrolatum,White 106 Gm Tube) 1 appl TOPICAL DAILY [facility] 234 BEDS AT [facility]; Protocol Last Admin: 03/02/22 09:21 Dose: 1 appl Documented By: ERAN Pharmacy Consult (Consult Rx Perform Med Rec) 1 each MISCELLANE ONCE PRN PRN Reason: Consult order Pharmacy Consult (Consult Rx Etoh Phenob Im/Po) 0 each MISCELLANE ONCE PRN; Protocol PRN Reason: Consult order Phenobarbital (Phenobarbital 30 Mg Tablet) 30 mg PO BID [facility] 234 [facility]S AT [facility]; Protocol Stop: 03/02/22 21:01 Last Admin: 03/02/22 08:54 Dose: 30 mg Documented By: ERAN Phenobarbital (Phenobarbital 30 Mg Tablet) 30 mg PO DAILY [facility] 234 BEDS AT [facility]; Protocol Stop: 03/04/22 09:01 Sodium Chloride (0.9 % Sodium Chloride Flush 3 Ml Syringe) 3 ml IVFLUSH QSHIFT [facility]S [facility]CLUDE 234 BEDS AT THE [facility] Last Admin: 03/02/22 08:55 Dose: 3 ml Documented By: ERAN Labs CBC & Chem 7: 02/28/22 06:57 03/02/22 06:08 Labs: Laboratory Results - last 24 hr 03/02/22 06:08 Anion Gap 12 Estim Creat Clear Calc 99.6 Estimated GFR > 60 Random Glucose 105 Calcium 8.5 Magnesium 0.7 L* Assessment and Plan (1) Acute encephalopathy: Status: Acute Plan 51-year-old homeless male with history of alcohol abuse brought to the emergency department after being found down by [employer] being admitted for confusion. Hypo magnesemia noted to have magnesium of 0.7 will replace IV magnesium sulfate and by mouth likely due to poor nutrition related to alcohol use Hypernatremia. Resolved secondary to hypovolemia status post IV fluid Hypokalemia. Improved to 3.9 Metabolic encephalopathy Resolved patient awake alert was likely secondary to alcohol withdrawal/delirium Brain CT negative for acute stroke Ammonia negative, TSH wnl, renal function at baseline Tox screen pos for marijuana on IV thiamine day 4 for possible Wernicke's encephlopathy alcohol dependence with alcohol withdrawal Continue phenobarbital protocol IV thiamine, and folate supplementation seizure precautions Will consult care team Seen by PT they recommend short-term rehab will reassess daily Elevated lactic acid Resolved with IVF,likely r/t dehydration no evidence of infection at this time Tachycardia resolved was likely secondary to alcohol withdrawal and hypovolemic ST depression on EKG Denies chest pain although unreliable neg trops Transaminitis. trending down ,Likely secondary to alcohol use Denies intravenous drug use, tolerating diet denies nausea , vomiting abdominal pain, follow LFT Macrocytic anemia low folic acid, no active GI bleed noted, likely r/t alcohol use with poor nutrition will replace folic acid and follow CBC Dry skin apply moisturizing cream dvt ppx-lovenox code status - full code continued hospitalization for management of alcohol withdrawal, hypo magnesemia and transaminitis Quality Stroke Does the patient have a stroke diagnosis?: No VTE Prior VTE?: No VTE Risk Level:: Medical - moderate - high VTE Device Contraindication: N/A - Device Ordered VTE Drug Contraindication: N/A - Med Ordered
[2022-03-02] MEDS: Enoxaparin Sodium 40 MG/0.4 ML SYRINGE SUBCUT (13:56)
--- NOTE | 2022-03-02 15:07 | MHC.RECOVRN ---
Met with pt in 471 after consult placed to CARE Team for alcohol use. Upon entering, pt sitting in chair, awake, alert, engages in conversation but guarded. Pt reports alcohol use x years, up to a fifth daily of rum or vodka. Pt will also drink beer and wine. Pt denies hx tx, including ATS, other than trying AA which pt dislikes. Pt reports longest amount of time not drinking was senior year in high school x 6 months. Pt reports other short periods of abstinence while being hospitalized or in shelter. Pt has supportive sister but states I haven't talked to her in awhile. Sister does not use alcohol, other family hx AUD prevalent. Pt is not interested in abstinence at this time, however, states I could drink less. Discussed and provided recovery supports and resources, including medications for AUD. Pt declines referrals at this time but is interested in [facility]. Pt would like to think about it some more and have t/w follow up tomorrow. Pt also provided with t/w contact information if questions arise. Plan to follow up 03/03. Discussed with Becky Martinez APRN.
[2022-03-02] MEDS: Thiamine HCL 200 MG in 0.9 % Sodium Chloride 100 ML 204 MG IV (22:07)
[2022-03-03] VITALS (7 sets, daily range): BP systolic 108–135; BP diastolic 65–87; PULSE 82–95; RESP 17–18; TEMP 36.4–37; O2SAT 96–98
[2022-03-03 06:53] LABS: Hematocrit 25.8 % (42.0-52.0); Hemoglobin 8.8 g/dl (14.0-18.0); Mean Corpuscular HGB Conc 34.1 g/dl (31.0-36.0); Mean Corpuscular Hemoglobin 39.6 pg (27.0-33.0); Mean Platelet Volume 10.7 fL (9.4-12.4); Platelet Count 303 X10*3/uL (160-400); Red Blood Count 2.22 X10*6/uL (4.60-5.80); Red Cell Distribution Width 16.9 % (11.0-16.0); White Blood Count 10.3 X10*3/uL (4.8-10.8)
[2022-03-03 06:55] LABS: Mean Corpuscular Volume 116.2 fL (80.0-98.0)
[2022-03-03] MEDS: 0.9 % Sodium Chloride Flush 3 ML SYRINGE IVFLUSH ×3 (07:28→23:17)
[2022-03-03] MEDS: Magnesium Oxide 400 MG TABLET PO ×2 (07:30→17:42)
[2022-03-03] MEDS: PHENobarbitaL 30 MG TABLET PO (07:30)
[2022-03-03] MEDS: Folic Acid 1 MG TABLET PO (07:30)
[2022-03-03] MEDS: Mineral Oil/Petrolatum,White 106 GM Tube 1 APPL TOPICAL (07:31)
[2022-03-03 07:39] LABS: Alanine Aminotransferase 153 U/L (0-40); Albumin Level 2.4 g/dL (3.5-5.0); Alkaline Phosphatase 125 U/L (39-117); Aspartate Amino Transferase 183 U/L (5-37); Bilirubin Direct 0.3 mg/dL (0.0-0.5); Bilirubin Total 0.5 mg/dL (0.0-1.0); Magnesium 1.3 mg/dL (1.6-2.6); Total Protein 5.4 g/dL (6.5-8.0)
[2022-03-03] MEDS: Magnesium Sulfate/H2O 2 GM/50 ML PIGGYBACK IV ×2 (08:30→13:37)
--- NOTE | 2022-03-03 11:17 | P.PNIM_ITS ---
Subjective Subjective Date of Service: 03/03/22 Interval History: Feeling better this morning denies generalized body ache, headache has improved, tolerating diet, denies nausea vomiting, abdominal pain, no acute events overnight. 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 Neck marroquin pple, no JVD. CVS? regular rate rhyt hm, Respiratory junito ngs clear to auscu ltation, no respir atory distress, no wheeze, no rhonch i. Gastrointestina l abdomen soft, no ntender, bowel ailyn nds audible, no gu arding , no rigidi ty. Extremities no edema. Neuro nonf ocal , moving all 4 extremity speech clear, no tremor. Skin less pronoun girish rash to neck a nd both lower extr emities . Objective Data Active Medications Acetaminophen (Acetaminophen 325 Mg Tablet) 650 mg PO Q12H PRN PRN Reason: Pain, Mild (Pain Scale 1-3) Last Admin: 03/02/22 12:54 Dose: 650 mg Documented By: ERAN Docusate Sodium (Docusate Sodium 100 Mg Capsule) 100 mg PO DAILY PRN PRN Reason: Constipation Enoxaparin Sodium (Enoxaparin Sodium 40 Mg/0.4 Ml Syringe) 40 mg SUBCUT Q24H [facility] Last Admin: 03/02/22 13:56 Dose: 40 mg Documented By: ERAN Folic Acid (Folic Acid 1 Mg Tablet) 1 mg PO DAILY [facility] Last Admin: 03/03/22 07:30 Dose: 1 mg Documented By: ERAN Thiamine HCl 200 mg/ Sodium (Chloride) 102 mls @ 204 mls/hr IV Q24H [facility] Last Infusion: 03/02/22 23:00 Dose: 0 mls/hr Documented By: MARYAM Magnesium Oxide (Magnesium Oxide 400 Mg Tablet) 400 mg PO BIDPC [facility] Last Admin: 03/03/22 07:30 Dose: 400 mg Documented By: ERAN Multi-Ingred Cream/Lotion/Oil/Oint (Mineral Oil/Petrolatum,White 106 Gm Tube) 1 appl TOPICAL DAILY [facility]; Protocol Last Admin: 03/03/22 07:31 Dose: 1 appl Documented By: ERAN Pharmacy Consult (Consult Rx Perform Med Rec) 1 each MISCELLANE ONCE PRN PRN Reason: Consult order Pharmacy Consult (Consult Rx Etoh Phenob Im/Po) 0 each MISCELLANE ONCE PRN; Protocol PRN Reason: Consult order Phenobarbital (Phenobarbital 30 Mg Tablet) 30 mg PO DAILY [facility]; Protocol Stop: 03/04/22 09:01 Last Admin: 03/03/22 07:30 Dose: 30 mg Documented By: ERAN Sodium Chloride (0.9 % Sodium Chloride Flush 3 Ml Syringe) [facility] Last Admin: 03/03/22 07:28 Dose: 3 ml Documented By: ERAN Labs CBC & Chem 7: 03/03/22 06:31 03/02/22 06:08 Labs: Laboratory Results - last 24 hr 03/03/22 03/03/22 06:31 06:31 MCV 116.2 H MCH 39.6 H MCHC 34.1 RDW 16.9 H Plt Count 303 MPV 10.7 Absolute Nucleated RBC 0.000 Nucleated RBC % (auto) 0.0 Magnesium 1.3 L* Total Bilirubin 0.5 Direct Bilirubin 0.3 AST 183 H ALT 153 H Alkaline Phosphatase 125 H D Total Protein 5.4 L Albumin 2.4 L Assessment and Plan (1) Acute encephalopathy: Status: Acute Plan 51-year-old homeless male with history of alcohol abuse brought to the emergency department after being found down by HPD being admitted for confusion. Hypo magnesemia persistent low magnesium slowly improving will aggressively replete follow labs likely due to poor nutrition related to alcohol use Hypernatremia. Resolved secondary to hypovolemia status post IV fluid Hypokalemia. Improved to 3.9 Metabolic encephalopathy Resolved patient awake alert was likely secondary to alcohol withdrawal/delirium Brain CT negative for acute stroke Ammonia negative, TSH wnl, renal function at baseline Tox screen pos for marijuana on IV thiamine day 5 for possible Wernicke's encephlopathy alcohol dependence with alcohol withdrawal Continue phenobarbital protocol,IV thiamine, and folate supplementation seizure precautions Being followed by care team he is not interested in abstinence at this time however stated he could drink less, recovery support and resources and information provided Seen by PT they recommend short-term rehab will reassess daily Elevated lactic acid Resolved with IVF,likely r/t dehydration no evidence of infection at this time Tachycardia resolved was likely secondary to alcohol withdrawal and hypovolemic ST depression on EKG Denies chest pain ,neg trops Transaminitis/alcoholic hepatitis. LFTs Improved from admission remains elevated,Likely secondary to alcohol use Denies intravenous drug use, tolerating diet denies nausea , vomiting, abdominal pain, follow LFT Macrocytic anemia low folic acid, no active GI bleed noted, likely r/t alcohol use with poor nutrition will replace folic acid and follow CBC Dry skin apply moisturizing cream dvt ppx-lovenox code status - full code continued hospitalization for management of alcohol withdrawal, hypo magnesemia and transaminitis Quality Stroke Does the patient have a stroke diagnosis?: No VTE Prior VTE?: No VTE Risk Level:: Medical - moderate - high VTE Device Contraindication: N/A - Device Ordered VTE Drug Contraindication: N/A - Med Ordered
--- NOTE | 2022-03-03 12:29 | MHC.CM.PN ---
pt continues to need hospitlalztion to man ge etoh,hypomagnesium,and tranmetitis
[2022-03-03] MEDS: Enoxaparin Sodium 40 MG/0.4 ML SYRINGE SUBCUT (13:45)
--- NOTE | 2022-03-03 15:48 | HO.ADDICT_ITS ---
History of Present Illness Date of Service: 03/03/22 Chief Complaint: ETOH INTOXICATION PER EMS Reason for Consult: Alcohol use Disorder Requesting physician: Mamadou Grissom Sources of Information: patient interviewed, chart reviewed and crisis/core team assessment reviewed HPI Narrative: Patient is a 51-year-old male, currently inpatient being treated for acute encephalopathy, alcohol withdrawal. Met with patient along with recovery team RN, to discuss treatments for alcohol use. Patient sitting up in bed, alert and oriented x3. Wifty at times during encounter, confabulation noted. Patient reports that he is an alcoholic. He had already met with cinder block maker and reported that he has a longstanding history of drinking up to a 5th daily of hard liquor, along with beer and wine. He had denied any treatment for detox rehab, had tried AA, which he did not like. He has been drinking heavily since high school, longest length of sobriety was 6 months while he was in high school. He states only other periods of abstinence were short times when he was either hospitalized or incarcerated. Patient is not interested in abstinence, however was interested in harm reduction. We discussed LFTs, kidney function, and possibility of a low-dose acamprosate at this time. Patient is requesting printed material regarding the medication, as he wants to read about it 1st before agreeing to try it. quality assurance monitor will return to patient's room with printed material regarding a camprosate. Review of Systems Comments: No fever or chills reported. Comments: Patient reports difficulty with vision, was wearing glasses. Reports Normal hearing present Cardiovascular: Reports as per HPI and Reports no additional cardiovascular complaints Respiratory: Reports no additional respiratory complaints Reports Normal hearing present Diagnostics Vital Signs (24Hr): Vital Signs - 24 hr 03/02/22 19:41 03/02/22 23:06 03/03/22 03:27 Temperature 98.7 F 97.6 F 97.6 F Pulse Rate 76 94 94 Respiratory Rate 18 18 18 Blood Pressure 132/89 118/73 114/68 Pulse Oximetry 97 98 98 Oxygen Delivery Method Room Air Room Air Room Air 03/03/22 07:53 03/03/22 10:58 03/03/22 11:32 Temperature 98.6 F 98.4 F Pulse Rate 90 90 89 Respiratory Rate 17 17 Blood Pressure 108/65 108/65 123/77 Pulse Oximetry 97 97 96 Oxygen Delivery Method Room Air Room Air 03/03/22 12:00 03/03/22 15:30 Temperature 98.6 F 97.8 F Pulse Rate 95 87 Respiratory Rate 18 18 Blood Pressure 132/87 124/75 Pulse Oximetry 97 98 Oxygen Delivery Method Room Air Room Air BMI result Body Mass Index 20.5 Labs Results: 03/03/22 06:31 03/02/22 06:08 Labs: Laboratory Results - last 48 hr 03/02/22 03/03/22 03/03/22 06:08 06:31 06:31 WBC 10.3 RBC 2.22 L Hgb 8.8 L Hct 25.8 L MCV 116.2 H MCH 39.6 H MCHC 34.1 RDW 16.9 H Plt Count 303 MPV 10.7 Absolute Nucleated RBC 0.000 Nucleated RBC % (auto) 0.0 Sodium 137 Potassium 3.9 D Chloride 101 Carbon Dioxide 28 Anion Gap 12 BUN 10 Creatinine 0.64 Estim Creat Clear Calc 99.6 Estimated GFR > 60 Random Glucose 105 Calcium 8.5 Magnesium 0.7 L* 1.3 L* Total Bilirubin 0.5 Direct Bilirubin 0.3 AST 183 H ALT 153 H Alkaline Phosphatase 125 H D Total Protein 5.4 L Albumin 2.4 L Imaging Radiology Impressions: ITS Impressions Cervical Spine CT 02/26/22 11:57 IMPRESSION: 1. No acute intracranial pathology. 2. No acute fracture or malalignment in the cervical spine. Head CT 02/26/22 11:57 IMPRESSION: 1. No acute intracranial pathology. 2. No acute fracture or malalignment in the cervical spine. Mental Status Exam Mental Status Exam Narrative: Cachetic male, in NAD. Appears older than stated age. Patient Appearance: Disheveled and Unkempt Patient Orientation: Person, Place and Time Level of Consciousness: Awake and Appropriate Patient Behavior: Appropriate Mood Description: Calm Affect Description: Anxious Patient Cognition Impaired: No Ability to Follow Directions: Good Speech Pattern: Clear and Coherent Memory Description: Intact (Grossly intact, however had difficulty with details. Confabulation noted.) Hallucinations: None Delusions: Not Present Thought Process: Intact (Grossly intact, some confusion at times.) Thought Content: positive for Intact (Grossly intact) Depressive Symptoms: Increased Anxiety Judgement: Fair Medications Medications Current Medications Acetaminophen (Acetaminophen 325 Mg Tablet) 650 mg PO Q12H PRN PRN Reason: Pain, Mild (Pain Scale 1-3) Last Admin: 03/02/22 12:54 Dose: 650 mg Docusate Sodium (Docusate Sodium 100 Mg Capsule) 100 mg PO DAILY PRN PRN Reason: Constipation Enoxaparin Sodium (Enoxaparin Sodium 40 Mg/0.4 Ml Syringe) 40 mg SUBCUT Q24H [facility] Last Admin: 03/03/22 13:45 Dose: 40 mg Folic Acid (Folic Acid 1 Mg Tablet) 1 mg PO DAILY [facility] Last Admin: 03/03/22 07:30 Dose: 1 mg Thiamine HCl 200 mg/ Sodium (Chloride) 102 mls @ 204 mls/hr IV Q24H [facility] Last Infusion: 03/02/22 23:00 Dose: Infused Magnesium Oxide (Magnesium Oxide 400 Mg Tablet) 400 mg PO BIDPC [facility] Last Admin: 03/03/22 07:30 Dose: 400 mg Multi-Ingred Cream/Lotion/Oil/Oint (Mineral Oil/Petrolatum,White 106 Gm Tube) 1 appl TOPICAL DAILY [facility]; Protocol Last Admin: 03/03/22 07:31 Dose: 1 appl Pharmacy Consult (Consult Rx Perform Med Rec) 1 each MISCELLANE ONCE PRN PRN Reason: Consult order Pharmacy Consult (Consult Rx Etoh Phenob Im/Po) 0 each MISCELLANE ONCE PRN; Protocol PRN Reason: Consult order Phenobarbital (Phenobarbital 30 Mg Tablet) 30 mg PO DAILY [facility]; Protocol Stop: 03/04/22 09:01 Last Admin: 03/03/22 07:30 Dose: 30 mg Sodium Chloride (0.9 % Sodium Chloride Flush 3 Ml Syringe) 3 ml IVFLUSH QSHIFT [facility] Last Admin: 03/03/22 07:28 Dose: 3 ml Allergies Allergies Allergy/AdvReac Type Severity Reaction Status Date / Time No Known Allergies Allergy Unverified 04/22/21 18:34 Assessment & Plan Assessment & Plan (1) Alcohol use disorder, severe, dependence: Status: Acute Code(s): F10.20 - Alcohol dependence, uncomplicated Assessment and Plan: Patient reports long history since adolescents of alcohol use/dependence. Has expressed interest in possibly trialing a camper state to assist with cravings. Requested printed material, will review them before agreeing to try medication. Plan 1. quality assurance monitor to provide printed information regarding acamprosate. I spent ____25__ minutes with the patient and/or on the patient floor today, greater than?50% of which was spent counseling/coordinating care. Patient educated on: diagnosis, medication risk/benefits and substance abuse Informed Consent: understands and further education needed PMFSH Past Medical History Medical History Alcohol abuse Alcohol withdrawal delirium Hypomagnesemia Hyponatremia Leukocytosis Visual hallucinations Surgical History Surgical History No significant past surgical history Social History Social History Household Members: None Household Members Other:: sister Housing: Homeless Do you presently have visiting nurse or other home services: No Alcohol intake: current Patient Tobacco Use Status: Current everyday Tobacco user Tobacco use type: Cigarette Cigarette Packs Per Day: 1 Cigarettes Per Day: 20.0 Years Smoked: 15 Smoked in Last 30 Days: Yes Patient Interested in Nicotine Replacement: No Patient Given Instructions on How to Stop Smoking: Yes Date Education Initiated: 02/26/22 Second Hand Smoke Exposure: No Use of substances other than those prescribed or required for medical reasons: Yes Substance Use Type: Marijuana Substance Use Frequency: Weekly Last Used Substance: Days (ago) Currently Displaying Signs/Symptoms of Drug Intoxication Withdrawal: No Have you been hit, kicked, punched, or otherwise hurt by someone within the past year? If so, by whom?: No Do you feel safe in your current relationship?: No Current Relationship Is there a partner from a previous relationship who is making you feel unsafe now?: No Are you made to feel afraid or neglected: No Advance Directives: No Advance Directives Information Provided: Yes Do you have thoughts of harming others: None Do you have a plan to hurt others: No Plan Recently lost weight without trying: Unsure Nutrition Risks: No Nutritional Risk service: No Current occupational status: disabled
[2022-03-03] MEDS: Acetaminophen 325 MG TABLET 650 MG PO (17:41)
[2022-03-03] MEDS: Thiamine HCL 200 MG in 0.9 % Sodium Chloride 100 ML 204 MG IV (22:34)
[2022-03-04] VITALS: BP 136/79; PULSE 91; RESP 18; TEMP 37.2; O2SAT 95
[2022-03-04 04:00] VITALS: BP 125/73; PULSE 91; RESP 18; TEMP 36.8; O2SAT 95
[2022-03-04 07:08] LABS: Anion Gap 13 (12-20); Blood Urea Nitrogen 14 mg/dL (9-16); Carbon Dioxide 28 mmol/L (22-29); Chloride 103 mmol/L (96-108); Creatinine Clr Calc Pharmacy 92.3; Estimated Glomerular Filt Rate > 60; Glucose Random 98 mg/dL (60-115); Potassium 3.6 mmol/L (3.3-5.1); Sodium 140 mmol/L (135-145)
[2022-03-04 07:20] LABS: Magnesium 1.4 mg/dL (1.6-2.6)
--- NOTE | 2022-03-04 07:32 | PC.NURSE ---
[place] [id number] [place] [facility] [place] ROOM 380. REPORT OBTAINED AND PT GREETED AT 0600. ALERT, PLEASANT, AND DENIED ALL PAIN. RASH AREAS NOTED TO FACE, HANDS, BODY, DENIED ITCH, CREAM AT BEDSIDE PREVIOUSLY ORDERED [place] [facility] [place]. #20 AT LEFT WRIST. PT HFR, ALARM AND TELESITTER IN USE, BED RAILS PADDED FOR SEIZURE PRECAUTIONS AND CIWA MONITORING. PT AWARE IN HOSPITAL AND VERY COOPERATIVE. PT SETTLED AND NOTED TO NAP AFTER BEING TRANSFERRED AND IN ROOM BY 0630 ROUNDS.
[2022-03-04 07:46] VITALS: BP 113/58; PULSE 95; RESP 17; TEMP 36.6; O2SAT 97
[2022-03-04] MEDS: Magnesium Oxide 400 MG TABLET PO ×2 (07:53→17:19)
[2022-03-04] MEDS: PHENobarbitaL 30 MG TABLET PO (07:53)
[2022-03-04] MEDS: Folic Acid 1 MG TABLET PO (07:53)
[2022-03-04] MEDS: Magnesium Sulfate/H2O 2 GM/50 ML PIGGYBACK IV (07:54)
--- NOTE | 2022-03-04 10:24 | P.PNIM_ITS ---
Subjective Subjective Date of Service: 03/04/22 Interval History: Feeling better every day, offers no acute complaints of pain, no nausea no vomiting tolerating diet, no acute events overnight, vitals remained stable noted to have persistent low magnesium. Review of Systems Review of Systems: Yes all other systems are reviewed and are negative Physical Exam Vital Signs: Vital Signs: Last Vital Signs Temp 98 F 03/04/22 07:46 Pulse 95 03/04/22 07:46 Resp 17 03/04/22 07:46 BP 113/58 L 03/04/22 07:46 Pulse Ox 97 03/04/22 07:46 O2 Del Method 03/04/22 07:46 O2 Flow Rate 55 02/28/22 22:19 FiO2 100 02/28/22 22:19 BMI result Body Mass Index 20.5 Const: Other: NGeneral awake aler t, resting comfort ably, no acute dis tress.? Neck suppl e, no JVD. CVS? re gular rate rhythm, Respiratory lungs clear to ausculta tion, no respirato ry distress, no wh eeze, no rhonchi. Gastrointestinal a bdomen soft, nonte nder, bowel sounds audible, no guard ing , no rigidity. Extremities no ed howie. Neuro nonfoca l , moving all 4 e xtremity speech cl ear, no tremor. Sk in papular rash ne ck and both lower extremities improv ing Objective Data Active Medications Acetaminophen (Acetaminophen 325 Mg Tablet) 650 mg PO Q12H PRN PRN Reason: Pain, Mild (Pain Scale 1-3) Last Admin: 03/03/22 17:41 Dose: 650 mg Documented By: ERAN Docusate Sodium (Docusate Sodium 100 Mg Capsule) 100 mg PO DAILY PRN PRN Reason: Constipation Enoxaparin Sodium (Enoxaparin Sodium 40 Mg/0.4 Ml Syringe) 40 mg SUBCUT Q24H [facility] Last Admin: 03/03/22 13:45 Dose: 40 mg Documented By: ERAN Folic Acid (Folic Acid 1 Mg Tablet) 1 mg PO DAILY [facility] Last Admin: 03/04/22 07:53 Dose: 1 mg Documented By: ABDIFATAH Thiamine HCl 200 mg/ Sodium (Chloride) 102 mls @ 204 mls/hr IV Q24H [facility] Last Infusion: 03/03/22 23:19 Dose: 0 mls/hr Documented By: GARRICK Magnesium Oxide (Magnesium Oxide 400 Mg Tablet) 400 mg PO BIDPC [facility] Last Admin: 03/04/22 07:53 Dose: 400 mg Documented By: ABDIFATAH Multi-Ingred Cream/Lotion/Oil/Oint (Mineral Oil/Petrolatum,White 106 Gm Tube) 1 appl TOPICAL DAILY [facility]; Protocol Last Admin: 03/04/22 10:05 Dose: Not Given Documented By: ABDIFATAH Non-Admin Reason: pt previously adminsitered Pharmacy Consult (Consult Rx Perform Med Rec) 1 each MISCELLANE ONCE PRN PRN Reason: Consult order Pharmacy Consult (Consult Rx Etoh Phenob Im/Po) 0 each MISCELLANE ONCE PRN; Protocol PRN Reason: Consult order Sodium Chloride (0.9 % Sodium Chloride Flush 3 Ml Syringe) 3 ml IVFLUSH QSHIFT [facility] Last Admin: 03/04/22 08:03 Dose: Not Given Documented By: ABDIFATAH Non-Admin Reason: IV Running Labs CBC & Chem 7: 03/03/22 06:31 03/04/22 06:05 Labs: Laboratory Results - last 24 hr 03/04/22 06:05 Anion Gap 13 Estim Creat Clear Calc 92.3 Estimated GFR > 60 Random Glucose 98 Calcium 9.0 Magnesium 1.4 L* Microbiology Microbiology Results: Microbiology 02/26/22 12:03 Blood Culture - Final Blood - Venous No growth after 5 days. 02/26/22 12:03 Blood Culture - Final Blood - Venous No growth after 5 days. Assessment and Plan (1) Acute encephalopathy: Status: Acute Plan 51-year-old homeless male with history of alcohol abuse brought to the emergency department after being found down by HPD being admitted for confusion. Hypo magnesemia persistent low magnesium slowly improving will aggressively replete follow labs likely due to poor nutrition related to alcohol use, magnesium 1.4 today Hypernatremia. Resolved secondary to hypovolemia status post IV fluid Hypokalemia. Improved Metabolic encephalopathy Resolved patient awake alert was likely secondary to alcohol withdrawal/delirium Brain CT negative for acute stroke Ammonia negative, TSH wnl, renal function at baseline Tox screen pos for marijuana on IV thiamine for possible Wernicke's encephlopathy will transition to by mouth alcohol dependence with alcohol withdrawal Continue phenobarbital protocol, thiamine, and folate supplementation seizure precautions Being followed by care team he is not interested in abstinence at this time how ever stated he could drink less, recovery support and resources and information provided Seen by PT they recommend short-term rehab will reassess daily for improvement Elevated lactic acid Resolved with IVF,likely r/t dehydration no evidence of infection at this time Tachycardia resolved was likely secondary to alcohol withdrawal and hypovolemic ST depression on EKG Denies chest pain ,neg trops Transaminitis/alcoholic hepatitis. LFTs Improved from admission remains elevated,Likely secondary to alcohol use Denies intravenous drug use, tolerating diet denies nausea , vomiting, abdominal pain, follow LFT Macrocytic anemia low folic acid, no active GI bleed noted, likely r/t alcohol use with poor nutrition will replace folic acid and repeat hematocrit is stable Dry skin apply moisturizing cream dvt ppx-lovenox code status - full code continued hospitalization for management of alcohol withdrawal, hypo magnesemia and transaminitis Quality Stroke Does the patient have a stroke diagnosis?: No VTE Prior VTE?: No VTE Risk Level:: Medical - moderate - high VTE Device Contraindication: N/A - Device Ordered VTE Drug Contraindication: N/A - Med Ordered
[2022-03-04 11:32] VITALS: BP 105/67; PULSE 93; RESP 16; TEMP 36.9; O2SAT 97
[2022-03-04] MEDS: Enoxaparin Sodium 40 MG/0.4 ML SYRINGE SUBCUT (15:20)
[2022-03-04] MEDS: 0.9 % Sodium Chloride Flush 3 ML SYRINGE IVFLUSH ×2 (15:20→21:06)
[2022-03-04 15:44] VITALS: BP 141/83; PULSE 89; RESP 16; TEMP 37.1; O2SAT 97
[2022-03-04 19:54] VITALS: BP 134/78; PULSE 92; RESP 17; TEMP 37; O2SAT 96
[2022-03-04] MEDS: Thiamine HCL 200 MG in 0.9 % Sodium Chloride 100 ML 204 MG IV (21:06)
[2022-03-05] VITALS (7 sets, daily range): BP systolic 105–131; BP diastolic 59–82; PULSE 78–101; RESP 17–18; TEMP 36.1–37.9; O2SAT 92–98
[2022-03-05] MEDS: Acetaminophen 325 MG TABLET 650 MG PO (03:19)
[2022-03-05 07:06] LABS: Alanine Aminotransferase 107 U/L (0-40); Albumin Level 2.4 g/dL (3.5-5.0); Alkaline Phosphatase 112 U/L (39-117); Aspartate Amino Transferase 116 U/L (5-37); Bilirubin Direct 0.3 mg/dL (0.0-0.5); Bilirubin Total 0.4 mg/dL (0.0-1.0); Magnesium 1.3 mg/dL (1.6-2.6); Total Protein 5.4 g/dL (6.5-8.0)
--- NOTE | 2022-03-05 07:06 | PC.NURSE ---
critical mag level reported by chemistry of 1.3, reported to Mamadou Grissom.
[2022-03-05] MEDS: Folic Acid 1 MG TABLET PO (07:24)
[2022-03-05] MEDS: Magnesium Oxide 400 MG TABLET PO ×2 (07:24→17:25)
[2022-03-05] MEDS: 0.9 % Sodium Chloride Flush 3 ML SYRINGE IVFLUSH ×3 (07:24→22:30)
[2022-03-05] MEDS: Mineral Oil/Petrolatum,White 106 GM Tube 1 APPL TOPICAL (07:25)
[2022-03-05] MEDS: Magnesium Sulfate/H2O 2 GM/50 ML PIGGYBACK IV ×2 (08:50→11:45)
--- NOTE | 2022-03-05 11:08 | P.PNIM_ITS ---
Subjective Subjective Date of Service: 03/05/22 Interval History: Feeling better, no tremors getting his strength back slowly, offers no acute complaints, no acute events overnight tolerating diet. 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 Neck supple, no JVD. CVS??regular rate rhythm, Respiratory lungs clear to auscultation, no respiratory distress, no?wheeze, no rhonchi. Gastrointestinal abdomen soft, nontender, bowel sounds audible, no guarding , no rigidity. Extremities no?edema. Neuro nonfocal , moving all 4 extremity speech?clear, no tremor. Skin less pronounced rash to neck and both lower extremities . Objective Data Active Medications Acetaminophen (Acetaminophen 325 Mg Tablet) 650 mg PO Q12H PRN PRN Reason: Pain, Mild (Pain Scale 1-3) Last Admin: 03/05/22 03:19 Dose: 650 mg Documented By: MANJEET Docusate Sodium (Docusate Sodium 100 Mg Capsule) 100 mg PO DAILY PRN PRN Reason: Constipation Enoxaparin Sodium (Enoxaparin Sodium 40 Mg/0.4 Ml Syringe) 40 mg SUBCUT Q24H [facility] Last Admin: 03/04/22 15:20 Dose: 40 mg Documented By: ABDIFATAH Folic Acid (Folic Acid 1 Mg Tablet) 1 mg PO DAILY [facility] Last Admin: 03/05/22 07:24 Dose: 1 mg Documented By: ABDIFATAH Thiamine HCl 200 mg/ Sodium (Chloride) 102 mls @ 204 mls/hr IV Q24H [facility] Last Infusion: 03/04/22 21:45 Dose: 0 mls/hr Documented By: HO.ODRISM Magnesium Oxide (Magnesium Oxide 400 Mg Tablet) 400 mg PO BIDPC [facility] Last Admin: 03/05/22 07:24 Dose: 400 mg Documented By: ABDIFATAH Multi-Ingred Cream/Lotion/Oil/Oint (Mineral Oil/Petrolatum,White 106 Gm Tube) 1 appl TOPICAL DAILY [facility]; Protocol Last Admin: 03/05/22 07:25 Dose: 1 appl Documented By: ABDIFATAH Pharmacy Consult (Consult Rx Perform Med Rec) 1 each MISCELLANE ONCE PRN PRN Reason: Consult order Pharmacy Consult (Consult Rx Etoh Phenob Im/Po) 0 each MISCELLANE ONCE PRN; Protocol PRN Reason: Consult order Sodium Chloride (0.9 % Sodium Chloride Flush 3 Ml Syringe) 3 ml IVFLUSH QSHIFT [facility] Last Admin: 03/05/22 07:24 Dose: 3 ml Documented By: ABDIFATAH Labs CBC & Chem 7: 03/03/22 06:31 03/04/22 06:05 Labs: Laboratory Results - last 24 hr 03/05/22 05:22 Magnesium 1.3 L* Total Bilirubin 0.4 Direct Bilirubin 0.3 AST 116 H ALT 107 H Alkaline Phosphatase 112 Total Protein 5.4 L Albumin 2.4 L Assessment and Plan (1) Acute encephalopathy: Status: Acute Plan 51-year-old homeless male with history of alcohol abuse brought to the emergency department after being found down by [employer] being admitted for confusion. Hypo magnesemia persistent low magnesium slowly improving will aggressively replete follow labs likely due to poor nutrition related to alcohol use, magnesium drop down to 1.3 today Hypernatremia. Resolved secondary to hypovolemia status post IV fluid Hypokalemia. Improved Metabolic encephalopathy Resolved patient awake alert was likely secondary to alcohol withdrawal/delirium Brain CT negative for acute stroke Ammonia negative, TSH wnl, renal function at baseline Tox screen pos for marijuana Will DCn IV thiamine given for possible Wernicke's encephlopathy and transition to by mouth alcohol dependence with alcohol withdrawal Finished phenobarbital protocol, continue thiamine, and folate supplementation seizure precautions Being followed by care team he is not interested in abstinence at this time however stated he could drink less, recovery support and resource information provided Seen by PT they recommend short-term rehab will reassess daily for improvement Elevated lactic acid Resolved with IVF,likely r/t dehydration no evidence of infection at this time Tachycardia resolved was likely secondary to alcohol withdrawal and hypovolemic ST depression on EKG Denies chest pain ,neg trops Transaminitis/alcoholic hepatitis. LFTs trending down ,Likely secondary to alcohol use Denies intravenous drug use, tolerating diet denies nausea , vomiting, abdominal pain, strongly recommend to abstain from alcohol Macrocytic anemia low folic acid, no active GI bleed noted, likely r/t alcohol use with poor nutrition will replace folic acid and repeat hematocrit is stable Dry skin apply moisturizing cream dvt ppx-lovenox code status - full code continued hospitalization for management of alcohol withdrawal, hypo magnesemia and transaminitis Quality Stroke Does the patient have a stroke diagnosis?: No VTE Prior VTE?: No VTE Risk Level:: Medical - moderate - high VTE Device Contraindication: N/A - Device Ordered VTE Drug Contraindication: N/A - Med Ordered
--- NOTE | 2022-03-05 12:06 | MHC.CM.PN ---
CURRENTLY, [facility] FOLLOWING PENDING BED AVAILABILITY AND 48 HOURS OF A 0 [facility] SCORE PT HAS BEEN SCORING 0 SINCE 1200 HOURS YESTERDAY SNF [facility]FORMED [facility] ARE ALSO FOLLOWING PENDING BED AVAILABILITY
[2022-03-05] MEDS: Enoxaparin Sodium 40 MG/0.4 ML SYRINGE SUBCUT (17:25)
[2022-03-05] MEDS: LORazepam 0.5 MG TABLET PO (18:14)
[2022-03-06 07:09] VITALS: BP 141/73; PULSE 85; RESP 18; TEMP 36; O2SAT 95
[2022-03-06 07:25] LABS: Anion Gap 13 (12-20); Blood Urea Nitrogen 15 mg/dL (9-16); Calcium 7.9 mg/dL (8.4-10.2); Carbon Dioxide 25 mmol/L (22-29); Chloride 101 mmol/L (96-108); Creatinine Clr Calc Pharmacy 101.1; Estimated Glomerular Filt Rate > 60; Glucose Random 87 mg/dL (60-115); Magnesium 1.6 mg/dL (1.6-2.6); Potassium 4.5 mmol/L (3.3-5.1); Sodium 134 mmol/L (135-145)
[2022-03-06] MEDS: 0.9 % Sodium Chloride Flush 3 ML SYRINGE IVFLUSH ×3 (09:14→19:52)
[2022-03-06] MEDS: Magnesium Oxide 400 MG TABLET PO ×2 (09:15→17:30)
[2022-03-06] MEDS: Thiamine HCL 100 MG TABLET PO (09:15)
[2022-03-06] MEDS: Folic Acid 1 MG TABLET PO (09:15)
[2022-03-06] MEDS: Mineral Oil/Petrolatum,White 106 GM Tube 1 APPL TOPICAL (09:17)
[2022-03-06 11:10] VITALS: BP 142/74; PULSE 68; RESP 18; TEMP 36.1; O2SAT 97
[2022-03-06] MEDS: Enoxaparin Sodium 40 MG/0.4 ML SYRINGE SUBCUT (14:32)
--- NOTE | 2022-03-06 14:49 | P.PNIM_ITS ---
Subjective Subjective Date of Service: 03/06/22 Interval History: Eating breakfast offers no acute complaints no nausea, no vomiting, no diarrhea denies chest pain no other acute issues overnight. 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 Physical Exam Vital Signs: Vital Signs: Last Vital Signs Temp 97 F 03/06/22 11:10 Pulse 68 03/06/22 11:10 Resp 18 03/06/22 11:10 BP 142/74 H 03/06/22 11:10 Pulse Ox 97 03/06/22 11:10 O2 Del Method 03/06/22 11:10 O2 Flow Rate 55 02/28/22 22:19 FiO2 100 02/28/22 22:19 BMI result Body Mass Index 20.5 Const: Other: General awake alert, resting comfortably, in no acute distress.? Neck supple, no JVD. CVS??regular rate rhythm, Respiratory lungs clear to auscultation, no respiratory distress, no?wheeze, no rhonchi. Gastrointestinal abdomen soft, nontender, bowel sounds audible, no guarding , no rigidity. Extremities no?edema. Neuro nonfocal , moving all 4 extremity speech?clear, no tremor. Skin less pronounced rash to neck and both lower extremities . Objective Data Active Medications Acetaminophen (Acetaminophen 325 Mg Tablet) 650 mg PO Q12H PRN PRN Reason: Pain, Mild (Pain Scale 1-3) Last Admin: 03/05/22 03:19 Dose: 650 mg Documented By: SINDYRISSkip Docusate Sodium (Docusate Sodium 100 Mg Capsule) 100 mg PO DAILY PRN PRN Reason: Constipation Enoxaparin Sodium (Enoxaparin Sodium 40 Mg/0.4 Ml Syringe) 40 mg SUBCUT Q24H [facility] Last Admin: 03/06/22 14:32 Dose: 40 mg Documented By: KRYSTIN Folic Acid (Folic Acid 1 Mg Tablet) 1 mg PO DAILY [facility] Last Admin: 03/06/22 09:15 Dose: 1 mg Documented By: KRYSTIN Magnesium Oxide (Magnesium Oxide 400 Mg Tablet) 400 mg PO BIDPC [facility] Last Admin: 03/06/22 09:15 Dose: 400 mg Documented By: KRYSTIN Multi-Ingred Cream/Lotion/Oil/Oint (Mineral Oil/Petrolatum,White 106 Gm Tube) 1 appl TOPICAL DAILY [facility]; Protocol Last Admin: 03/06/22 09:17 Dose: 1 appl Documented By: KRYSTIN Sodium Chloride (0.9 % Sodium Chloride Flush 3 Ml Syringe) 3 ml IVFLUSH QSHIFT [facility] Last Admin: 03/06/22 09:14 Dose: 3 ml Documented By: KRYSTIN Thiamine HCl (Thiamine Hcl 100 Mg Tablet) 100 mg PO DAILY [facility] Last Admin: 03/06/22 09:15 Dose: 100 mg Documented By: KRYSTIN Labs CBC & Chem 7: 03/03/22 06:31 03/06/22 05:39 Labs: Laboratory Results - last 24 hr 03/06/22 05:39 Anion Gap 13 Estim Creat Clear Calc 101.1 Estimated GFR > 60 Random Glucose 87 Calcium 7.9 L D Magnesium 1.6 Assessment and Plan (1) Acute encephalopathy: Status: Acute Plan 51-year-old homeless male with history of alcohol abuse brought to the emergency department after being found down by [employer] being admitted for confusion. Hypo magnesemia improved to 1.6 s/p multiple IV dosages continue by mouth magnesium follow labs Hypernatremia. Resolved secondary to hypovolemia status post IV fluid Hypokalemia. Improved Metabolic encephalopathy Resolved patient awake alert was likely secondary to alcohol withdrawal/delirium Brain CT negative for acute stroke Ammonia negative, TSH wnl, renal function at baseline Tox screen pos for marijuana s/p IV thiamine given for possible Wernicke's encephlopathy ,now on by mouth alcohol dependence with alcohol withdrawal Finished phenobarbital protocol, continue thiamine, and folate supplementation Being followed by care team he is not interested in abstinence at this time however stated he could drink less, recovery support and resource information provided Seen by PT they recommend short-term rehab will reassess daily for improvement Elevated lactic acid Resolved with IVF,likely r/t dehydration no evidence of infection at this time Tachycardia resolved was likely secondary to alcohol withdrawal and hypovolemic ST depression on EKG Denies chest pain ,neg trops Transaminitis/alcoholic hepatitis. 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
[2022-03-06 15:41] VITALS: BP 118/75; PULSE 99; RESP 18; TEMP 37.9; O2SAT 94
[2022-03-06 18:46] VITALS: TEMP 36.8
[2022-03-06 19:50] VITALS: BP 139/84; PULSE 98; RESP 18; TEMP 37.9; O2SAT 96
[2022-03-06] MEDS: Acetaminophen 325 MG TABLET 650 MG PO (19:50)
[2022-03-06] MEDS: Melatonin 3 MG TABLET PO (19:50)
[2022-03-06 23:49] VITALS: BP 110/65; PULSE 88; RESP 17; TEMP 36.4; O2SAT 94
[2022-03-07] VITALS (8 sets, daily range): BP systolic 119–140; BP diastolic 62–85; PULSE 77–110; RESP 14–17; TEMP 36.4–37.6; O2SAT 94–98
[2022-03-07 06:32] LABS: Anion Gap 14 (12-20); Blood Urea Nitrogen 18 mg/dL (9-16); Calcium 9.2 mg/dL (8.4-10.2); Carbon Dioxide 28 mmol/L (22-29); Chloride 100 mmol/L (96-108); Creatinine Clr Calc Pharmacy 88.5; Estimated Glomerular Filt Rate > 60; Glucose Random 96 mg/dL (60-115); Magnesium 1.7 mg/dL (1.6-2.6); Potassium 4.7 mmol/L (3.3-5.1); Sodium 137 mmol/L (135-145)
[2022-03-07] MEDS: Folic Acid 1 MG TABLET PO (07:38)
[2022-03-07] MEDS: Magnesium Oxide 400 MG TABLET PO ×2 (07:38→16:05)
[2022-03-07] MEDS: 0.9 % Sodium Chloride Flush 3 ML SYRINGE IVFLUSH ×3 (07:38→21:33)
[2022-03-07] MEDS: Mineral Oil/Petrolatum,White 106 GM Tube 1 APPL TOPICAL (07:38)
[2022-03-07] MEDS: Thiamine HCL 100 MG TABLET PO (07:38)
--- NOTE | 2022-03-07 11:45 | MHC.CM.PN ---
Per ROUNDS discussion, Patient is medically cleared for dc. PT is recommending STR and SNF referrals have been updated. CM will follow.
--- NOTE | 2022-03-07 12:52 | MHC.CM.PN ---
CM has left a detailed message for Patient's Sister/Madisyn @ [phone] asking if it is an option for Patient, who is homeless, to stay with her after STR or simply with her, if a STR/SNF bed cannot be secured. CM awaits a return call from Madisyn.
--- NOTE | 2022-03-07 14:31 | P.PNIM_ITS ---
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 Physical Exam Vital Signs: Vital Signs: Last Vital Signs Temp 98.7 F 03/07/22 11:20 Pulse 98 03/07/22 11:20 Resp 15 03/07/22 11:20 BP 119/64 03/07/22 11:20 Pulse Ox 98 03/07/22 11:20 O2 Del Method 03/07/22 11:20 O2 Flow Rate 55 02/28/22 22:19 FiO2 100 02/28/22 22:19 BMI result Body Mass Index 20.5 General awake alert, resting comfortably, in no acute distress.? Appearance: Alert.? Oriented X3.? not in distress.? cvs: [id number], [id number] , no murmur res: clear to auscultation ,no rhonchii or wheezing abd: no rebound or guarding ,nt, bs present. Neuro nonfocal , moving all 4 extremity speech?clear, no tremor. Skin less pronounced rash to neck and both lower extremities Objective Data Active Medications Acetaminophen (Acetaminophen 325 Mg Tablet) 650 mg PO Q12H PRN PRN Reason: Pain, Mild (Pain Scale 1-3) Last Admin: 03/06/22 19:50 Dose: 650 mg Documented By: DARIUS Docusate Sodium (Docusate Sodium 100 Mg Capsule) 100 mg PO DAILY PRN PRN Reason: Constipation Enoxaparin Sodium (Enoxaparin Sodium 40 Mg/0.4 Ml Syringe) 40 mg SUBCUT Q24H [facility] Last Admin: 03/06/22 14:32 Dose: 40 mg Documented By: KRYSTIN Folic Acid (Folic Acid 1 Mg Tablet) 1 mg PO DAILY [facility] Last Admin: 03/07/22 07:38 Dose: 1 mg Documented By: ROSE Magnesium Oxide (Magnesium Oxide 400 Mg Tablet) 400 mg PO BIDPC [facility] Last Admin: 03/07/22 07:38 Dose: 400 mg Documented By: ROSE Melatonin (Melatonin 3 Mg Tablet) 3 mg PO BEDTIME [facility] Last Admin: 03/06/22 19:50 Dose: 3 mg Documented By: DARIUS Multi-Ingred Cream/Lotion/Oil/Oint (Mineral Oil/Petrolatum,White 106 Gm Tube) 1 appl TOPICAL DAILY [facility]; Protocol Last Admin: 03/07/22 07:38 Dose: 1 appl Documented By: ROSE Sodium Chloride (0.9 % Sodium Chloride Flush 3 Ml Syringe) 3 ml IVFLUSH QSHIFT [facility] Last Admin: 03/07/22 07:38 Dose: 3 ml Documented By: ROSE Thiamine HCl (Thiamine Hcl 100 Mg Tablet) 100 mg PO DAILY [facility] Last Admin: 03/07/22 07:38 Dose: 100 mg Documented By: ROSE Labs CBC & Chem 7: 03/03/22 06:31 03/07/22 05:11 Labs: Laboratory Results - last 24 hr 03/07/22 05:11 Anion Gap 14 Estim Creat Clear Calc 88.5 Estimated GFR > 60 Random Glucose 96 Calcium 9.2 D Magnesium 1.7 Assessment and Plan (1) Alcohol use disorder, severe, dependence: Status: Acute (2) Acute encephalopathy: Status: Acute (3) Alcohol withdrawal: Status: Acute Plan 51-year-old homeless male with history of alcohol abuse brought to the emergency department after being found down by [employer] being admitted for confusion. Hypo magnesemia improved to 1.6 s/p multiple IV dosages continue by mouth mag nesium follow labs Hypernatremia. Resolved secondary to hypovolemia status post IV fluid Hypokalemia.? Improved Metabolic encephalopathy Resolved patient awake alert was likely secondary to alcohol withdrawal/delirium Brain CT negative for acute stroke Ammonia negative, TSH wnl, renal function at baseline Tox screen pos for marijuana s/p IV thiamine given for possible Wernicke's encephlopathy ,now on by mouth alcohol dependence with alcohol withdrawal Finished phenobarbital protocol, continue thiamine, and folate supplementation Being followed by care team he is not interested in abstinence at this time however stated he could drink less, recovery support and resource information provided Seen by PT they recommend short-term rehab will reassess daily for improvement Elevated lactic acid Resolved with IVF,likely r/t dehydration no evidence of infection at this time Tachycardia resolved was likely secondary to alcohol withdrawal and hypovolemic ST depression on EKG Denies chest pain ,neg trops Transaminitis/alcoholic hepatitis.? LFTs? 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
[2022-03-07] MEDS: Enoxaparin Sodium 40 MG/0.4 ML SYRINGE SUBCUT (16:05)
[2022-03-07] MEDS: Melatonin 3 MG TABLET PO (20:25)
[2022-03-08] VITALS (8 sets, daily range): BP systolic 114–144; BP diastolic 63–85; PULSE 89–99; RESP 14–20; TEMP 37–37.9; O2SAT 91–96
--- NOTE | 2022-03-08 01:07 | PC.NURSE ---
Pt transfered to [facility] from Med/surg around 21:20. Pt was incontinent of stool-washed and changed. Pt's hands soaked and cleansed several times. Pt still has dirty fingers with feces under the nails. Clothes sent to a psych floor to be cleaned by JULIAN Ruiz. Pt refusing telemetry, otherwise compliant. Bed alarm and camera in room for patient safety. Will continue to monitor.
[2022-03-08] MEDS: Folic Acid 1 MG TABLET PO (08:05)
[2022-03-08] MEDS: Mineral Oil/Petrolatum,White 106 GM Tube 1 APPL TOPICAL (08:05)
[2022-03-08] MEDS: 0.9 % Sodium Chloride Flush 3 ML SYRINGE IVFLUSH ×3 (08:05→19:52)
[2022-03-08] MEDS: Thiamine HCL 100 MG TABLET PO (08:05)
[2022-03-08] MEDS: Magnesium Oxide 400 MG TABLET PO ×2 (08:05→16:21)
--- NOTE | 2022-03-08 08:59 | P.CDIC_ITS ---
CDI Concurrent Query Documentation Clarification: PHYSICIAN'S DOCUMENTATION REQUEST Date of Query: 03/08/22 0900 Patient Name: Rod Aguilar Admit Date: 02/26/22 Dear Doctor, A review of the medical record indicates additional documentation may be needed. Please review below and update the documentation accordingly. Clinical Indicators: Risk Factors/Clinical Indicators/Treatments Labs: Albumin 2.4 Poor nutrition R/T alcohol use, dehydration, hypovolemia, electrolyte imbalance. Based on the above, could you clarify in the Progress Notes the appropriate diagnosis, if significant, that supports the above abnormalities and additional evaluation, monitoring, and/or treatment rendered: * Hypoalbuminemia or other etiology of lab findings * Labs indicate a diagnosis of (please specify) * Other (please specify) * Unable to determine Use of terms such as suspected, likely, concern for, or probable (associated with a specific diagnosis that is being evaluated, monitored, or treated as if it exists) are acceptable and can be coded in the inpatient setting, when documented at the time of discharge. Thank you, Leny Grace [facility], [facility] Extension: [phone] Please use your independent medical judgment in providing your response. THIS QUERY IS PART OF THE PERMANENT MEDICAL RECORD Provider Response: Other Other Diagnosis: hypoalbumiemia unsepcified ( possible related to alcohol use /poor oral intake)
--- NOTE | 2022-03-08 13:58 | P.PNIM_ITS ---
Subjective Subjective Date of Service: 03/09/22 Interval History: alcohol withdrawal Review of Systems Denies any new complaint of chest pain or shortness of breath or abdominal pain or fever or chills or nausea or vomiting Denies any cough Denies any weakness or numbness. Physical Exam Vital Signs: Vital Signs: Last Vital Signs Temp 98.6 F 03/08/22 12:00 Pulse 91 03/08/22 13:20 Resp 20 03/08/22 12:00 BP 132/75 03/08/22 13:20 Pulse Ox 95 03/08/22 13:20 O2 Del Method 03/08/22 12:00 O2 Flow Rate 55 02/28/22 22:19 FiO2 100 02/28/22 22:19 BMI result Body Mass Index 20.5 General awake alert, resting comfortably, in no acute distress.? Appearance: Alert.? Oriented X3.? not in distress.? cvs: rrr, [id number] , no murmur res: clear to auscultation ,no rhonchii or wheezing abd: no rebound or guarding ,nt, bs present. Neuro nonfocal , moving all 4 extremity speech?clear, no tremor. Skin less pronounced rash to neck and both lower extremities Objective Data Active Medications Acetaminophen (Acetaminophen 325 Mg Tablet) 650 mg PO Q12H PRN PRN Reason: Pain, Mild (Pain Scale 1-3) Last Admin: 03/06/22 19:50 Dose: 650 mg Documented By: DARIUS Docusate Sodium (Docusate Sodium 100 Mg Capsule) 100 mg PO DAILY PRN PRN Reason: Constipation Enoxaparin Sodium (Enoxaparin Sodium 40 Mg/0.4 Ml Syringe) 40 mg SUBCUT Q24H [facility] Last Admin: 03/07/22 16:12 Dose: Not Given Documented By: ROSE Non-Admin Reason: Patient Refused Folic Acid (Folic Acid 1 Mg Tablet) 1 mg PO DAILY [facility] Last Admin: 03/08/22 08:05 Dose: 1 mg Documented By: MIO Magnesium Oxide (Magnesium Oxide 400 Mg Tablet) 400 mg PO BIDPC [facility] Last Admin: 03/08/22 08:05 Dose: 400 mg Documented By: MIO Melatonin (Melatonin 3 Mg Tablet) 3 mg PO BEDTIME [facility] Last Admin: 03/07/22 20:25 Dose: 3 mg Documented By: VALDO Multi-Ingred Cream/Lotion/Oil/Oint (Mineral Oil/Petrolatum,White 106 Gm Tube) 1 appl TOPICAL DAILY [facility]; Protocol Last Admin: 03/08/22 08:05 Dose: 1 appl Documented By: MIO Sodium Chloride (0.9 % Sodium Chloride Flush 3 Ml Syringe) 3 ml IVFLUSH QSHIFT [facility] Last Admin: 03/08/22 08:05 Dose: 3 ml Documented By: MIO Thiamine HCl (Thiamine Hcl 100 Mg Tablet) 100 mg PO DAILY [facility] Last Admin: 03/08/22 08:05 Dose: 100 mg Documented By: MIO Labs CBC & Chem 7: 03/03/22 06:31 03/07/22 05:11 Assessment and Plan (1) Acute encephalopathy: Status: Acute (2) Alcohol withdrawal: Status: Acute Plan 51-year-old homeless male with history of alcohol abuse brought to the emergency department after being found down by [facility] being admitted for confusion. Hypo magnesemia improved to 1.6 s/p multiple IV dosages continue by mouth magnesium follow labs Hypernatremia. Resolved secondary to hypovolemia status post IV fluid Hypokalemia.? Improved Metabolic encephalopathy Resolved patient awake alert was likely secondary to alcohol withdrawal/delirium Brain CT negative for acute stroke Ammonia negative, TSH wnl, renal function at baseline Tox screen pos for marijuana s/p IV thiamine given for possible Wernicke's encephlopathy ,now on by mouth alcohol dependence with alcohol withdrawal Finished phenobarbital protocol, continue thiamine, and folate supplementation Being followed by care team he is not interested in abstinence at this time however stated he could drink less, recovery support and resource information provided Seen by PT they recommend short-term rehab will reassess daily for improvement Elevated lactic acid Resolved with IVF,likely r/t dehydration no evidence of infection at this time Tachycardia resolved was likely secondary to alcohol withdrawal and hypovolemic ST depression on EKG Denies chest pain ,neg trops Transaminitis/alcoholic hepatitis.? LFTs? 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 Quality Stroke Does the patient have a stroke diagnosis?: No VTE Prior VTE?: No VTE Risk Level:: Medical - moderate - high VTE Device Contraindication: N/A - Device Ordered VTE Drug Contraindication: N/A - Med Ordered
--- NOTE | 2022-03-08 15:18 | MHC.CM.PN ---
[facility] STR via BLS. Per MD rounds patient is ready for discharge. A bed search is in progress. Multiple referrals have been sent out. No bed offers have been received. Spoke with Patience. She reports that the patient needs to improve his participation.
[2022-03-08] MEDS: Melatonin 3 MG TABLET PO (19:52)
[2022-03-09] VITALS (7 sets, daily range): BP systolic 113–131; BP diastolic 60–85; PULSE 62–99; RESP 16–18; TEMP 36.3–37.1; O2SAT 95–100
[2022-03-09] MEDS: Folic Acid 1 MG TABLET PO (10:29)
[2022-03-09] MEDS: Magnesium Oxide 400 MG TABLET PO ×2 (10:29→17:08)
[2022-03-09] MEDS: Thiamine HCL 100 MG TABLET PO (10:29)
[2022-03-09] MEDS: 0.9 % Sodium Chloride Flush 3 ML SYRINGE IVFLUSH ×3 (10:29→19:40)
[2022-03-09] MEDS: Mineral Oil/Petrolatum,White 106 GM Tube 1 APPL TOPICAL (10:29)
--- NOTE | 2022-03-09 14:01 | P.PNIM_ITS ---
Subjective Subjective Date of Service: 03/09/22 Interval History: alcohol withdrawal Review of Systems seems improving denies new c/o chest pain or sob or abd pain or nausea or vomiting Physical Exam Vital Signs: Vital Signs: Last Vital Signs Temp 98.4 F 03/09/22 11:37 Pulse 87 03/09/22 11:37 Resp 18 03/09/22 11:37 BP 117/65 03/09/22 11:37 Pulse Ox 95 03/09/22 11:37 O2 Del Method 03/09/22 11:37 O2 Flow Rate 55 02/28/22 22:19 FiO2 100 02/28/22 22:19 BMI result Body Mass Index 20.5 General awake alert, resting comfortably, in no acute distress.? cvs: [id number], [id number] , no murmur res: clear to auscultation ,no rhonchii or wheezing abd: no rebound or guarding ,nt, bs present. Neuro nonfocal , moving all 4 extremity speech?clear, no tremor. Skin less pronounced rash to neck and both lower extremities Objective Data Active Medications Acetaminophen (Acetaminophen 325 Mg Tablet) 650 mg PO Q12H PRN PRN Reason: Pain, Mild (Pain Scale 1-3) Last Admin: 03/06/22 19:50 Dose: 650 mg Documented By: WALESKAILSkip Docusate Sodium (Docusate Sodium 100 Mg Capsule) 100 mg PO DAILY PRN PRN Reason: Constipation Enoxaparin Sodium (Enoxaparin Sodium 40 Mg/0.4 Ml Syringe) 40 mg SUBCUT Q24H [facility] Last Admin: 03/07/22 16:12 Dose: Not Given Documented By: ROSE Non-Admin Reason: Patient Refused Folic Acid (Folic Acid 1 Mg Tablet) 1 mg PO DAILY [facility] Last Admin: 03/09/22 10:29 Dose: 1 mg Documented By: JOSIAS Magnesium Oxide (Magnesium Oxide 400 Mg Tablet) 400 mg PO BIDPC [facility] Last Admin: 03/09/22 10:29 Dose: 400 mg Documented By: JOSIAS Melatonin (Melatonin 3 Mg Tablet) 3 mg PO BEDTIME [facility] Last Admin: 03/08/22 19:52 Dose: 3 mg Documented By: RODOLFO Multi-Ingred Cream/Lotion/Oil/Oint (Mineral Oil/Petrolatum,White 106 Gm Tube) 1 appl TOPICAL DAILY [facility]; Protocol Last Admin: 03/09/22 10:29 Dose: 1 appl Documented By: JOSIAS Sodium Chloride (0.9 % Sodium Chloride Flush 3 Ml Syringe) 3 ml IVFLUSH QSHIFT [facility] Last Admin: 03/09/22 10:29 Dose: 3 ml Documented By: JOSIAS Thiamine HCl (Thiamine Hcl 100 Mg Tablet) 100 mg PO DAILY [facility] Last Admin: 03/09/22 10:29 Dose: 100 mg Documented By: JOSIAS Labs CBC & Chem 7: 03/03/22 06:31 03/07/22 05:11 Assessment and Plan (1) Alcohol withdrawal: Status: Acute (2) Acute encephalopathy: Status: Acute Plan 51-year-old homeless male with history of alcohol abuse brought to the emergency department after being found down by [employer] being admitted for confusion. Hypo magnesemia improved to 1.6 s/p multiple IV dosages continue by mouth magnesium follow labs Hypernatremia. Resolved secondary to hypovolemia status post IV fluid Hypokalemia.? Improved Metabolic encephalopathy Resolved patient awake alert was likely secondary to alcohol withdrawal/delirium Brain CT negative for acute stroke Ammonia negative, TSH wnl, renal function at baseline Tox screen pos for marijuana s/p IV thiamine given for possible Wernicke's encephlopathy ,now on by mouth alcohol dependence with alcohol withdrawal Finished phenobarbital protocol, continue thiamine, and folate supplementation Being followed by care team he is not interested in abstinence at this time however stated he could drink less, recovery support and resource information provided Seen by PT they recommend short-term rehab will reassess daily for improvement Elevated lactic acid Resolved with IVF,likely r/t dehydration no evidence of infection at this time Tachycardia resolved was likely secondary to alcohol withdrawal and hypovolemic ST depression on EKG Denies chest pain ,neg trops Transaminitis/alcoholic hepatitis.? LFTs? 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 Quality Stroke Does the patient have a stroke diagnosis?: No VTE Prior VTE?: No VTE Risk Level:: Medical - moderate - high VTE Device Contraindication: N/A - Device Ordered VTE Drug Contraindication: N/A - Med Ordered
[2022-03-09] MEDS: Enoxaparin Sodium 40 MG/0.4 ML SYRINGE SUBCUT (17:07)
[2022-03-09] MEDS: Melatonin 3 MG TABLET PO (19:36)
[2022-03-10 04:00] VITALS: BP 140/62; PULSE 80; RESP 18; TEMP 36.4; O2SAT 96
[2022-03-10 08:00] VITALS: BP 115/68; PULSE 78; RESP 20; TEMP 36.8; O2SAT 96
[2022-03-10] MEDS: Thiamine HCL 100 MG TABLET PO (09:17)
[2022-03-10] MEDS: Magnesium Oxide 400 MG TABLET PO (09:17)
[2022-03-10] MEDS: Folic Acid 1 MG TABLET PO (09:17)
[2022-03-10] MEDS: 0.9 % Sodium Chloride Flush 3 ML SYRINGE IVFLUSH (09:17)
[2022-03-10] MEDS: Mineral Oil/Petrolatum,White 106 GM Tube 1 APPL TOPICAL (09:19)
[2022-03-10 11:46] VITALS: BP 117/72; PULSE 88; RESP 20; TEMP 36.7; O2SAT 97
--- NOTE | 2022-03-10 14:06 | HO.PM.IMPN ---
Subjective Subjective Date of Service: 03/10/22 Interval History: alcohol withdrawal Review of Systems denies new c/o chest pain or sob or abd pain or nausea or vomiting Physical Exam Vital Signs: Vital Signs: Last Vital Signs Temp 98.1 F 03/10/22 11:46 Pulse 88 03/10/22 11:46 Resp 20 03/10/22 11:46 BP 117/72 03/10/22 11:46 Pulse Ox 97 03/10/22 11:46 O2 Del Method 03/10/22 11:46 O2 Flow Rate 55 02/28/22 22:19 FiO2 100 02/28/22 22:19 BMI result Body Mass Index 20.5 General awake alert, resting comfortably, in no acute distress.? cvs: [id number], [id number] , no murmur res: clear to auscultation ,no rhonchii or wheezing abd: no rebound or guarding ,nt, bs present. Neuro nonfocal , moving all 4 extremity speech?clear, no tremor. Skin less pronounced rash to neck and both lower extremities Objective Data Active Medications Acetaminophen (Acetaminophen 325 Mg Tablet) 650 mg PO Q12H PRN PRN Reason: Pain, Mild (Pain Scale 1-3) Last Admin: 03/06/22 19:50 Dose: 650 mg Documented By: DARIUS Docusate Sodium (Docusate Sodium 100 Mg Capsule) 100 mg PO DAILY PRN PRN Reason: Constipation Enoxaparin Sodium (Enoxaparin Sodium 40 Mg/0.4 Ml Syringe) 40 mg SUBCUT Q24H [facility] Last Admin: 03/09/22 17:07 Dose: 40 mg Documented By: JOSIAS Folic Acid (Folic Acid 1 Mg Tablet) 1 mg PO DAILY [facility] Last Admin: 03/10/22 09:17 Dose: 1 mg Documented By: LUCIANO Magnesium Oxide (Magnesium Oxide 400 Mg Tablet) 400 mg PO BIDPC [facility] Last Admin: 03/10/22 09:17 Dose: 400 mg Documented By: LUCIANO Melatonin (Melatonin 3 Mg Tablet) 3 mg PO BEDTIME [facility] Last Admin: 03/09/22 19:36 Dose: 3 mg Documented By: RODOLFO Multi-Ingred Cream/Lotion/Oil/Oint (Mineral Oil/Petrolatum,White 106 Gm Tube) 1 appl TOPICAL DAILY [facility]; Protocol Last Admin: 03/10/22 09:19 Dose: 1 appl Documented By: LUCIANO Sodium Chloride (0.9 % Sodium Chloride Flush 3 Ml Syringe) 3 ml IVFLUSH QSHIFT [facility] Last Admin: 03/10/22 09:17 Dose: 3 ml Documented By: LUCIANO Thiamine HCl (Thiamine Hcl 100 Mg Tablet) 100 mg PO DAILY [facility] Last Admin: 03/10/22 09:17 Dose: 100 mg Documented By: LUCIANO Labs CBC & Chem 7: 03/03/22 06:31 03/07/22 05:11 Assessment and Plan (1) Alcohol withdrawal: Status: Acute (2) Acute encephalopathy: Status: Acute Plan 51-year-old homeless male with history of alcohol abuse brought to the emergency department after being found down by [employer] being admitted for confusion. Hypo magnesemia improved to 1.6 s/p multiple IV dosages continue by mouth magnesium follow labs Hypernatremia. Resolved secondary to hypovolemia status post IV fluid Hypokalemia.? Improved Metabolic encephalopathy Resolved patient awake alert was likely secondary to alcohol withdrawal/delirium Brain CT negative for acute stroke Ammonia negative, TSH wnl, renal function at baseline Tox screen pos for marijuana s/p IV thiamine given for possible Wernicke's encephlopathy ,now on by mouth alcohol dependence with alcohol withdrawal Finished phenobarbital protocol, continue thiamine, and folate supplementation Being followed by care team he is not interested in abstinence at this time however stated he could drink less, recovery support and resource information provided Seen by PT they recommend short-term rehab will reassess daily for improvement Elevated lactic acid Resolved with IVF,likely r/t dehydration no evidence of infection at this time Tachycardia resolved was likely secondary to alcohol withdrawal and hypovolemic ST depression on EKG Denies chest pain ,neg trops Transaminitis/alcoholic hepatitis.? LFTs? 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 Quality Stroke Does the patient have a stroke diagnosis?: No VTE Prior VTE?: No VTE Risk Level:: Medical - moderate - high VTE Device Contraindication: N/A - Device Ordered VTE Drug Contraindication: N/A - Med Ordered
--- NOTE | 2022-03-10 14:49 | MHC.CM.PN ---
Addendum entered by Faby Deutsch 03/10/22 14:51: pts sister jess [phone] notified of dc Original Note: pt to be dcd today to [facility] at 430
--- NOTE | 2022-03-10 15:01 | PM.DS ---
DS: Providers Provider Date of Service: 03/10/22 Date of admission: 02/26/22 14:45 Primary care physician: Unknown Physician Consults: 03/02/22 13:35 Consult to Care Team Routine Comment: Reason for consultation: etoh DS: Diagnosis Discharge Diagnosis (1) Alcohol withdrawal: Status: Acute (2) Acute encephalopathy: Status: Acute DS: Summary Hospital Course Hospital Course: 51-year-old homeless male with history of alcohol abuse brought to the emergency department after being found down by [employer] being admitted for confusion, multiple electrolytic abnormalities. hospital course: 51-year-old homeless male with history of alcohol abuse brought to the emergency department after being found down by [employer] being admitted for confusion-admitted for metabolic encephalopathy, alcohol withdrawal, electrolytic abnormalities: Patient was given supportive care with IV fluid for hyppernatremia and also repleted magnesium and potassium. Patient mental status seems to be improved significantly. Patient also got IV thiamine for possible Wernicke's encephalopathy. Eating better. intially ST depression on EKG:Denies chest pain ,neg trops,further workup otpatiently . Transaminitis/alcoholic hepatitis.? LFTs? trending down ,possible secondary to alcohol use. moniter lft's outpatient. Macrocytic anemia low folic acid, no active GI bleed noted, likely r/t alcohol use with poor nutrition will replace folic acid and moniter cbc outpatiently. Dry skin apply moisturizing cream Patient is going to rehab, patient may benefit from less than 30 day stay. plan: moniter electrolytes outpatiently bmp and lft's as above. moniter cbc as above. encourage for hydration and po intake. Assessment and plan coordination time spent 50 minute. Time Spent with Patient Time attestation: Total time spent providing and/or coordinating discharge services: Discharge coordination time: Greater than 30 minutes Quality: Safe Use of Opioids Does Pt have an Active Cancer Diagnosis on the Problem List?: No Quality: Stroke Does the patient have a stroke diagnosis?: No Physical Exam Vital Signs: Vital Signs: Last Vital Signs Temp 98.1 F 03/10/22 11:46 Pulse 88 03/10/22 11:46 Resp 20 03/10/22 11:46 BP 117/72 03/10/22 11:46 Pulse Ox 97 03/10/22 11:46 O2 Del Method 03/10/22 11:46 O2 Flow Rate 55 02/28/22 22:19 FiO2 100 02/28/22 22:19 BMI result Body Mass Index 20.5 General awake alert, resting comfortably, in no acute distress.? cvs: rrr, [id number] . res: clear to auscultation ,no rhonchii or wheezing abd: no rebound or guarding ,nt, bs present. Neuro nonfocal , moving all 4 extremity speech?clear, no tremor. Skin less pronounced rash to neck and both lower extremities DS: Data Data Completed and Pending Completed studies during hospitalization [Text1]: Procedures Detoxification Services for Substance Abuse Treatment (04/22/21) Labs on day of discharge: 03/03/22: CBC: WBC count: 10.3, H&H: 8.8/25.8, platelets 303 BMP: Sodium 137, potassium 4.7, chloride 100, bicarb 28, BUN 18, creatinine 0.72, glucose 96. Additional Comments Additional comments: CT/CT cervical spine wo con IMPRESSION: 1. No acute intracranial pathology. 2. No acute fracture or malalignment in the cervical spine. CT/CT head/brain wo con IMPRESSION: 1. No acute intracranial pathology. 2. No acute fracture or malalignment in the cervical spine. Discharge Plan Discharge Patient Disposition: er SNF Discharge Diagnosis: alcohol withdrawal Referrals: [facility] [Other] - 1 Week Physician,Unknown J [Primary Care Provider] - 1 Week Discharge Medications: New folic acid 1 mg Tablet 1 mg PO DAILY Qty: 30 0RF acetaminophen 325 mg Tablet 650 mg PO Q12H PRN (Reason: Pain, Mild (Pain Scale 1-3)) Qty: 10 0RF thiamine mononitrate (vit B1) 100 mg Tablet 100 mg PO DAILY Qty: 30 0RF magnesium oxide 400 mg (241.3 mg magnesium) Tablet 400 mg PO BIDPC Qty: 10 0RF melatonin 3 mg Tablet 3 mg PO BEDTIME Qty: 30 0RF No Action No Known Home Meds Discharge Orders: Discharge Order (Routine); Ordered 03/10/22 Ordered By: Alda Wild Diet: Advance to usual diet Activity on Discharge: As tolerated Stand Alone Forms: Patient Portal Discharge page Care Plan Goals: 51-year-old homeless male with history of alcohol abuse brought to the emergency department after being found down by [employer] being admitted for confusion-admitted for metabolic encephalopathy, alcohol withdrawal, electrolytic abnormalities: Patient was given supportive care with IV fluid for hyppernatremia and also repleted magnesium and potassium. Patient mental status seems to be improved significantly. Patient also got IV thiamine for possible Wernicke's encephalopathy. Eating better. Patient is going to rehab, patient may benefit from less than 30 day stay. Health Concerns: As above. Any new symptoms including chest pain or shortness of breath -may need to get evaluated nearest ED. Plan of Treatment: As above. Assessment: As above.
[2022-03-10] MEDS: Enoxaparin Sodium 40 MG/0.4 ML SYRINGE SUBCUT (15:21)
[2022-03-10 15:52] LABS: COVID-19 Test Negative (Negative); IDNOW Serial# 55D5AD1C
[2022-03-10 16:08] VITALS: BP 123/76; PULSE 88; RESP 16; TEMP 36.4; O2SAT 97
== END 2022-03-10 18:51 | disposition skilled nursing facility (03) | DRG 280 ==
LOC: HO.ED 13:42 → HO.EDOVER 14:52 → HO.IMC 18:28 → HO.S3 03-04 04:16 → HO.IMC 03-07 19:39
PROVIDERS: Hospitalist; Nurse Practitioner Acute Care; Physician Assistant; Admitting Provider Physician Assistant Medical; Emergency Provider Student in an Organized Health Care Education/Training Program; Visit Provider Internal Medicine
DX: K70.10 Alcoholic hepatitis without ascites (principal); F10.221 Alcohol dependence with intoxication delirium; E87.2 Acidosis; E51.2 Wernicke's encephalopathy; E86.0 Dehydration; E83.42 Hypomagnesemia; G31.2 Degeneration of nervous system due to alcohol; D53.9 Nutritional anemia, unspecified; Z20.822 Contact with and (suspected) exposure to COVID-19; E87.6 Hypokalemia; E88.09 Other disorders of plasma-protein metabolism, not elsewhere classified; F10.231 Alcohol dependence with withdrawal delirium; Y90.0 Blood alcohol level of less than 20 mg/100 ml; Z59.02 Unsheltered homelessness; Z79.899 Other long term (current) drug therapy
CPT/HCPCS: 36415; 70450; 72125; 80048; 80076; 80307; 81001; 82077; 82140; 82550; 82607; 82746; 82803; 82947; 83540; 83605; 83735; 84100; 84443; 84484; 85025; 85027; 85610; 85730; 87040; 87086; 87635; 93005; 96361; 96372; 96374; 96375; 97110; 97116; 97162; 97530; 99285; J1650; J2560; J3411; J3475